=== PATIENT | male | born 1950 | race Caucasian/White ===

== ENCOUNTER 2019-03-19 18:13 | Emergency (ER) | payer OTHER ==
[2019-03-19 18:25] VITALS: BP 146/88; PULSE 83; RESP 18; TEMP 98.2
[2019-03-19] MEDS ORDERED: HYDROcodone/APAP 7.5-325MG 1 EACH TAB PO ONE (18:42)
--- NOTE | 2019-03-19 18:44 | ED ---
Extremity Problem HPI - General Chief complaint: Extremity Problem,Nontraumatic Stated complaint: Knee pain down to ankle Time Seen by Provider: 03/19/19 18:28 Source: patient Mode of arrival: ambulatory Limitations: no limitations - History of Present Illness Initial comments: Patient is a 68-year-old male presenting for left leg pain. The patient states that it originally started hurting on Thursday and was relieved by some Tylenol and Motrin. However, the pain is getting worse and is located in the back of his leg all the way down to his foot. He denies taking any blood thinners or any history of DVTs. He also denies any trauma but states that he has chronic knee pain. He denies any chest pain, shortness of breath, nausea/vomiting/diarr hea or abdominal pain. - Related Data Home Medications Medication Instructions Recorded Confirmed Hydrochlorothiazide [Hydrodiuril] 25 mg PO DAILY 03/19/19 03/19/19 Lisinopril 40 mg PO DAILY 03/19/19 03/19/19 Meloxicam [Mobic] 15 mg PO DAILY 03/19/19 03/19/19 amLODIPine [Norvasc] 10 mg PO DAILY 03/19/19 03/19/19 metFORMIN HCL [Glucophage] 500 mg PO BID 03/19/19 03/19/19 Allergies Allergy/AdvReac Type Severity Reaction Status Date / Time codeine Allergy Unknown Verified 03/19/19 19:54 Review of Systems ROS Statement: Those systems with pertinent positive or pertinent negative responses have been documented in the HPI. Constitutional: Negative for chills, fatigue and fever. HENT: Negative for congestion. Respiratory: Negative for chest tightness, shortness of breath and wheezing. Negative for cough Cardiovascular: Negative for chest pain and palpitations. Gastrointestinal: Negative for abdominal pain. Negative for abdominal distention, diarrhea, nausea and vomiting. Genitourinary: Negative for dysuria. Musculoskeletal: Negative for back pain, neck pain and neck stiffness. Positive for left leg pain below the knee Skin: Negative for color change. Neurological: Negative for dizziness, speech difficulty, weakness and light-head edness. Psychiatric/Behavioral: Negative for agitation and confusion. Negative for anxiety ROS Other: All systems not noted in ROS Statement are negative. Past Medical History Past Medical History: Diabetes Mellitus, Hypertension History of Any Multi-Drug Resistant Organisms: None Reported Past Surgical History: No Surgical Hx Reported Past Psychological History: No Psychological Hx Reported Smoking Status: Never smoker Past Alcohol Use History: Occasional Past Drug Use History: None Reported General Exam - General Exam Comments Initial Comments: Constitutional: Pt appears well-developed and well-nourished. No distress. Head: Normocephalic and atraumatic. Eyes: EOM are normal. Neck: Normal range of motion. Neck supple. Cardiovascular: Normal rate, regular rhythm, S1 normal, S2 normal and normal heart sounds. Exam reveals no gallop and no friction rub. No murmur heard. Pulmonary/Chest: Effort normal and breath sounds normal. No tachypnea and no bradypnea. No respiratory distress. No wheezes or rales noted. Abdominal: Soft. Bowel sounds are normal. Pt exhibits no shifting dullness, no distension, no pulsatile liver, no fluid wave, no abdominal bruit and no ascites. There is no rigidity, no rebound, no guarding, no tenderness at McBurney's point and negative Springer's sign. There is no tenderness. Musculoskeletal: Normal range of motion. Mild tenderness on the left popliteal fossa with a small palpable mass Neurological: Pt is alert and oriented to person, place, and time. No cranial nerve deficit. Skin: Skin is warm and dry. No rash noted. Pt is not diaphoretic. No erythema. No pallor. Psychiatric: Pt has a normal mood and affect. Pt behavior is normal. Thought content normal. Limitations: no limitations Course Vital Signs 03/19/19 18:22 Temperature 98.2 F Pulse Rate 83 Respiratory 18 Rate Blood Pressure 146/88 O2 Sat by Pulse 99 Oximetry Medical Decision Making - Medical Decision Making Laboratory studies showed that there was no significant leukocytosis, electronic derangements be causing the patient's cramping. Lower show any Doppler's are also performed and showed no evidence of DVT. X-rays were not performed of the left knee as there is no evidence of effusion or traumatic injury.It was explai veronica that while there does not appear to be an emergent process, the etiology of the symptoms are still unclear but possibly related to Pak cyst or arthritis and may need further workup as an outpatient if symptoms continue. Patient was offered [place] but stated that he had significant ALLERGY to codeine and did not want a wrist the interaction or ALLERGIC reaction to the [place].Explained all labs and diagnostic test results and that we will discharge the patient home and patient is to follow up with PCP in 1-2 days and return to the ED if symptoms worsen. Pt is agreeable to plan. - Lab Data Result diagrams: 03/19/19 19:46 03/19/19 19:46 Lab Results 03/19/19 03/19/19 03/19/19 Range/Units 19:46 19:46 19:46 WBC 8.8 (3.8-10.6) k/uL RBC 4.12 L (4.30-5.90) m/uL Hgb 14.1 (13.0-17.5) gm/dL Hct 40.1 (39.0-53.0) % MCV 97.5 (80.0-100.0) fL MCH 34.3 (25.0-35.0) pg MCHC 35.2 (31.0-37.0) g/dL RDW 13.1 (11.5-15.5) % Plt Count 249 (150-450) k/uL Neutrophils % 70 % Lymphocytes % 18 % Monocytes % 7 % Eosinophils % 2 % Basophils % 1 % Neutrophils # 6.1 (1.3-7.7) k/uL Lymphocytes # 1.6 (1.0-4.8) k/uL Monocytes # 0.6 (0-1.0) k/uL Eosinophils # 0.2 (0-0.7) k/uL Basophils # 0.1 (0-0.2) k/uL PT 9.6 (9.0-12.0) sec INR 0.9 (<1.2) APTT 23.3 (22.0-30.0) sec Sodium 137 (137-145) mmol/L Potassium 4.0 (3.5-5.1) mmol/L Chloride 101 (98-107) mmol/L Carbon Dioxide 25 (22-30) mmol/L Anion Gap 11 mmol/L BUN 17 (9-20) mg/dL Creatinine 0.88 (0.66-1.25) mg/dL Est GFR (CKD-EPI)AfAm >90 (>60 ml/min/1.73 sqM) Est GFR (CKD-EPI)NonAf 90 (>60 ml/min/1.73 sqM) Glucose 142 H (74-99) mg/dL Calcium 9.1 (8.4-10.2) mg/dL Magnesium 1.9 (1.6-2.3) mg/dL Disposition Clinical Impression: Left leg pain Disposition: HOME SELF-CARE Condition: Good Instructions (If sedation given, give patient instructions): Arthritis (ED) Is patient prescribed a controlled substance at d/c from ED?: No Referrals: Bridgett Zacarias DO [Primary Care Provider] - 1-2 days Time of Disposition: 20:24
--- NOTE | 2019-03-19 19:41 | US ---
EXAMINATION TYPE: US venous doppler duplex LE LT DATE OF EXAM: 03/19/2019 7:34 PM COMPARISON: NONE CLINICAL HISTORY: Pain. SIDE PERFORMED: Left TECHNIQUE: The lower extremity deep venous system is examined utilizing real time linear array sonog mellissa with graded compression, doppler sonography and color-flow sonography. VESSELS IMAGED: External Iliac Vein (EIV) Common Femoral Vein Deep Femoral Vein Greater Saphenous Vein * Femoral Vein Popliteal Vein Small Saphenous Vein * Proximal Calf Veins (* superficial vessels) Left Leg: Negative for DVT IMPRESSION: No evidence of deep venous thrombosis in the left leg.
[2019-03-19 19:59] LABS: Basophils # (A) 0.1 k/uL (0-0.2); Basophils % (A) 1 %; Eosinophils # (A) 0.2 k/uL (0-0.7); Eosinophils % (A) 2 %; HCT 40.1 % (39.0-53.0); HGB 14.1 gm/dL (13.0-17.5); Lymphocytes # (A) 1.6 k/uL (1.0-4.8); Lymphocytes % (A) 18 %; MCH 34.3 pg (25.0-35.0); MCHC 35.2 g/dL (31.0-37.0); MCV 97.5 fL (80.0-100.0); Mean Platelet Volume 7.1; Monocytes # (A) 0.6 k/uL (0-1.0); Monocytes % (A) 7 %; Neutrophils # (A) 6.1 k/uL (1.3-7.7); Neutrophils % (A) 70 %; Platelet Count 249 k/uL (150-450); RBC 4.12 m/uL (4.30-5.90); RDW 13.1 % (11.5-15.5); WBC 8.8 k/uL (3.8-10.6)
[2019-03-19 20:11] LABS: INR 0.9 (<1.2); Partial Thromboplastin Time 23.3 sec (22.0-30.0); Prothrombin Time 9.6 sec (9.0-12.0)
[2019-03-19 20:13] LABS: Anion Gap 11 mmol/L; Blood Urea Nitrogen 17 mg/dL (9-20); Calcium 9.1 mg/dL (8.4-10.2); Carbon Dioxide 25 mmol/L (22-30); Chloride 101 mmol/L (98-107); Glucose 142 mg/dL (74-99); Magnesium 1.9 mg/dL (1.6-2.3); Sodium 137 mmol/L (137-145)
== END 2019-03-19 20:40 | disposition home or self-care (01) ==
LOC: EC 18:13
DX: M79.605 Pain in left leg (principal); E11.9 Type 2 diabetes mellitus without complications; I10 Essential (primary) hypertension; Z79.84 Long term (current) use of oral hypoglycemic drugs; Z79.1 Long term (current) use of non-steroidal anti-inflammatories (NSAID); Z79.899 Other long term (current) drug therapy; Z88.5 Allergy status to narcotic agent; Z53.8 Procedure and treatment not carried out for other reasons
CPT/HCPCS: 36415; 80048; 83735; 85025; 85610; 85730; 99284

== ENCOUNTER 2019-05-31 15:02 | Inpatient (IN) | payer MEDICARE, OTHER ==
[2019-05-31] MEDS ORDERED: SODIUM CHLORIDE 0.9% 500 ML 500 ML IV STA (15:49)
[2019-05-31] MEDS ORDERED: HEPARIN SODIUM,PORCINE 5,000 UNIT/ML 1 ML VIAL IV ONE (15:50)
--- NOTE | 2019-05-31 15:54 | ED ---
General Adult HPI - General Source: patient, RN notes reviewed Mode of arrival: wheelchair Limitations: no limitations <Zach Domínguez - Last Filed: 05/31/19 17:17> <Augusto Durbin - Last Filed: 05/31/19 18:35> - General Chief complaint: Arrhythmia/Palpitations Stated complaint: Abn EKG sent by Dr Mancia Seen by Provider: 05/31/19 15:10 - History of Present Illness Initial comments: This 68-year-old male who presents emergency Department complaining of shortness of breath for a week. Patient states he has no heart history and he has no history of clotting and no history of atrial fibrillation. Patient denies any chest pain or palpitations. Patient denies any recent fever chills or cough. Patient denies any abdominal pain patient denies nausea or vomiting. Patient denies any calf pain or leg swelling. Patient denies any lightheadedness or dizziness. Patient denies any headache patient denies numbness or weakness. Patient denies any recent injury or trauma. (Zach Domínguez) - Related Data Home Medications Medication Instructions Recorded Confirmed Hydrochlorothiazide [Hydrodiuril] 25 mg PO DAILY 03/19/19 05/31/19 Lisinopril 40 mg PO DAILY 03/19/19 05/31/19 Meloxicam [Mobic] 15 mg PO DAILY 03/19/19 05/31/19 amLODIPine [Norvasc] 10 mg PO DAILY 03/19/19 05/31/19 metFORMIN HCL [Glucophage] 500 mg PO BID 03/19/19 05/31/19 Fluticasone Nasal [place] [Flonase 2 spr EA NOSTRIL DAILY 05/31/19 05/31/19 Nasal [place]] Allergies Allergy/AdvReac Type Severity Reaction Status Date / Time codeine Allergy Unknown Verified 05/31/19 15:23 Review of Systems ROS Other: All systems not noted in ROS Statement are negative. <Zach Domínguez - Last Filed: 05/31/19 17:17> ROS Other: All systems not noted in ROS Statement are negative. <Augusto Durbin - Last Filed: 05/31/19 18:35> ROS Statement: Those systems with pertinent positive or pertinent negative responses have been documented in the HPI. Past Medical History Past Medical History: Diabetes Mellitus, Hypertension History of Any Multi-Drug Resistant Organisms: None Reported Past Surgical History: Orthopedic Surgery Past Psychological History: No Psychological Hx Reported Smoking Status: Never smoker Past Alcohol Use History: Occasional Past Drug Use History: None Reported <Zach Domínguez - Last Filed: 05/31/19 17:17> General Exam Limitations: no limitations <Zach Domínguez - Last Filed: 05/31/19 17:17> - General Exam Comments Initial Comments: GENERAL: Patient is well-developed and well-nourished. Patient is nontoxic and well- hydrated and is in mild distress. ENT: Neck is soft and supple. No significant lymphadenopathy is noted. Oropharynx is clear. Moist mucous membranes. Neck has full range of motion without eliciting any pain. EYES: The sclera were anicteric and conjunctiva were pink and moist. Extraocular movements were intact and pupils were equal round and reactive to light. Eyelids were unremarkable. PULMONARY: Unlabored respirations. Good breath sounds bilaterally. No audible rales rhonchi or wheezing was noted. CARDIOVASCULAR: Patient has a and irregular heartbeat at 170 beats a minute ABDOMEN: Soft and nontender with normal bowel sounds. No palpable organomegaly was noted. There is no palpable pulsatile mass. SKIN: Skin is clear with no lesions or rashes and otherwise unremarkable. NEUROLOGIC: Patient is alert and oriented x3. Cranial nerves II through XII are grossly intact. Motor and sensory are also intact. Normal speech, volume and content. Symmetrical smile. MUSCULOSKELETAL: Normal extremities with adequate strength and full range of motion. No lower extremity swelling or edema. No calf tenderness. LYMPHATICS: No significant lymphadenopathy is noted PSYCHIATRIC: Normal psychiatric evaluation. (Zach Domínguez) Course Vital Signs 05/31/19 05/31/19 05/31/19 15:10 15:22 15:30 Temperature 97.9 F Pulse Rate 80 160 H Respiratory 18 18 Rate Blood Pressure 100/74 123/87 123/87 O2 Sat by Pulse 97 93 L 93 L Oximetry 05/31/19 05/31/19 05/31/19 15:40 15:50 16:00 Temperature Pulse Rate 158 H 161 H 172 H Respiratory 14 26 H 7 L Rate Blood Pressure 120/78 120/78 120/78 O2 Sat by Pulse 95 97 95 Oximetry 07/16/19 07/16/19 07/16/19 16:10 16:20 16:30 Temperature Pulse Rate 170 H 165 H 181 H Respiratory 32 H 23 17 Rate Blood Pressure 115/96 115/96 115/96 O2 Sat by Pulse 95 96 96 Oximetry 05/31/19 05/31/19 05/31/19 16:40 16:50 17:00 Temperature Pulse Rate 163 H 163 H 158 H Respiratory 34 H 33 H 29 H Rate Blood Pressure 93/74 93/74 93/74 O2 Sat by Pulse 94 L 94 L 92 L Oximetry 05/31/19 05/31/19 05/31/19 17:06 17:08 17:10 Temperature Pulse Rate 170 H 0 L 165 H Respiratory 18 35 H 18 Rate Blood Pressure 107/92 107/92 107/92 O2 Sat by Pulse 95 93 L 94 L Oximetry 05/31/19 05/31/19 05/31/19 17:12 17:14 17:16 Temperature Pulse Rate 147 H 151 H 137 H Respiratory 18 17 18 Rate Blood Pressure 107/92 107/92 113/88 O2 Sat by Pulse 94 L 95 93 L Oximetry 05/31/19 05/31/19 05/31/19 17:18 17:20 17:22 Temperature Pulse Rate 165 H 144 H 163 H Respiratory 19 9 L 20 Rate Blood Pressure 113/88 113/88 113/88 O2 Sat by Pulse 92 L 95 92 L Oximetry 05/31/19 05/31/19 05/31/19 17:24 17:26 17:28 Temperature Pulse Rate 158 H 146 H 147 H Respiratory 24 34 H 18 Rate Blood Pressure 113/88 113/88 113/88 O2 Sat by Pulse 94 L 92 L 92 L Oximetry 05/31/19 05/31/19 05/31/19 17:30 17:32 17:34 Temperature Pulse Rate 160 H 170 H 165 H Respiratory 26 H 21 23 Rate Blood Pressure 113/88 104/74 104/74 O2 Sat by Pulse 92 L 93 L 92 L Oximetry 05/31/19 05/31/19 05/31/19 17:36 17:38 17:40 Temperature Pulse Rate 152 H 168 H 170 H Respiratory 27 H 29 H 26 H Rate Blood Pressure 104/74 104/74 104/74 O2 Sat by Pulse 95 94 L 91 L Oximetry 05/31/19 05/31/19 05/31/19 17:42 17:44 17:46 Temperature Pulse Rate 152 H 170 H 170 H Respiratory 18 25 H 14 Rate Blood Pressure 104/74 104/74 110/84 O2 Sat by Pulse 92 L 92 L 92 L Oximetry 05/31/19 17:48 Temperature Pulse Rate 169 H Respiratory 34 H Rate Blood Pressure 110/84 O2 Sat by Pulse 91 L Oximetry Medical Decision Making - Lab Data Result diagrams: 05/31/19 16:04 05/31/19 16:04 <Zach Domínguez - Last Filed: 05/31/19 17:17> - Lab Data Result diagrams: 05/31/19 16:04 05/31/19 16:04 <Augusto Durbin - Last Filed: 05/31/19 18:35> - Medical Decision Making EKG shows atrial for ablation with rapid ventricular response at 171 bpm QRS is 90 QT interval is 298 QTC is 502. Patient's EKG shows no ST segment elevation. I started the patient on a Cardizem drip and started the patient on heparin. Patient's chest x-ray showed no acute abnormality. I spoke with Dr. Cordova he agreed to admit the patient I wrote admitting orders and consult cardiology. I continued heparin and Cardizem drip on the floor. Dr. Cordova came down to the emergency department and saw the patient. (Zach Domínguez) CXR reviewed, it shows evidence of cardiogenic edema with small bilateral pleural effusions. these findings are likely secondary to HR. patient remains stable, continue current management per admitting team. (Augusto Durbin) - Lab Data Lab Results 05/31/19 05/31/19 05/31/19 Range/Units 16:04 16:04 16:04 WBC 12.2 H (3.8-10.6) k/uL RBC 4.22 L (4.30-5.90) m/uL Hgb 13.6 (13.0-17.5) gm/dL Hct 41.8 (39.0-53.0) % MCV 99.2 D (80.0-100.0) fL MCH 32.3 (25.0-35.0) pg MCHC 32.6 (31.0-37.0) g/dL RDW 13.6 (11.5-15.5) % Plt Count 305 (150-450) k/uL Neutrophils % 74 % Lymphocytes % 15 % Monocytes % 7 % Eosinophils % 2 % Basophils % 1 % Neutrophils # 9.1 H (1.3-7.7) k/uL Lymphocytes # 1.8 (1.0-4.8) k/uL Monocytes # 0.9 (0-1.0) k/uL Eosinophils # 0.2 (0-0.7) k/uL Basophils # 0.1 (0-0.2) k/uL PT 11.0 (9.0-12.0) sec INR 1.0 (<1.2) APTT 22.8 (22.0-30.0) sec Sodium 139 (137-145) mmol/L Potassium 4.1 (3.5-5.1) mmol/L Chloride 105 (98-107) mmol/L Carbon Dioxide 22 (22-30) mmol/L Anion Gap 12 mmol/L BUN 24 H (9-20) mg/dL Creatinine 1.12 (0.66-1.25) mg/dL Est GFR (CKD-EPI)AfAm 79 (>60 ml/min/1.73 sqM) Est GFR (CKD-EPI)NonAf 68 (>60 ml/min/1.73 sqM) Glucose 107 H (74-99) mg/dL Calcium 9.1 (8.4-10.2) mg/dL Magnesium 2.1 (1.6-2.3) mg/dL Total Bilirubin 0.6 (0.2-1.3) mg/dL AST 53 (17-59) U/L ALT 91 H (21-72) U/L Alkaline Phosphatase 64 (38-126) U/L Troponin I (0.000-0.034) ng/mL Total Protein 6.4 (6.3-8.2) g/dL Albumin 3.6 (3.5-5.0) g/dL TSH 2.540 (0.465-4.680) mIU/L Free T4 1.61 (0.78-2.19) ng/dL 05/31/19 Range/Units 16:04 WBC (3.8-10.6) k/uL RBC (4.30-5.90) m/uL Hgb (13.0-17.5) gm/dL Hct (39.0-53.0) % MCV (80.0-100.0) fL MCH (25.0-35.0) pg MCHC (31.0-37.0) g/dL RDW (11.5-15.5) % Plt Count (150-450) k/uL Neutrophils % % Lymphocytes % % Monocytes % % Eosinophils % % Basophils % % Neutrophils # (1.3-7.7) k/uL Lymphocytes # (1.0-4.8) k/uL Monocytes # (0-1.0) k/uL Eosinophils # (0-0.7) k/uL Basophils # (0-0.2) k/uL PT (9.0-12.0) sec INR (<1.2) APTT (22.0-30.0) sec Sodium (137-145) mmol/L Potassium (3.5-5.1) mmol/L Chloride (98-107) mmol/L Carbon Dioxide (22-30) mmol/L Anion Gap mmol/L BUN (9-20) mg/dL Creatinine (0.66-1.25) mg/dL Est GFR (CKD-EPI)AfAm (>60 ml/min/1.73 sqM) Est GFR (CKD-EPI)NonAf (>60 ml/min/1.73 sqM) Glucose (74-99) mg/dL Calcium (8.4-10.2) mg/dL Magnesium (1.6-2.3) mg/dL Total Bilirubin (0.2-1.3) mg/dL AST (17-59) U/L ALT (21-72) U/L Alkaline Phosphatase (38-126) U/L Troponin I <0.012 (0.000-0.034) ng/mL Total Protein (6.3-8.2) g/dL Albumin (3.5-5.0) g/dL TSH (0.465-4.680) mIU/L Free T4 (0.78-2.19) ng/dL Critical Care Time Critical Care Time: Yes Total Critical Care Time: 35 <Zach Domínguez - Last Filed: 05/31/19 17:17> Disposition Time of Disposition: 17:18 <Zach Domínguez - Last Filed: 05/31/19 17:17> <Augusto Durbin - Last Filed: 05/31/19 18:35> Clinical Impression: New onset atrial fibrillation Disposition: ADMITTED IP TO THIS HOSP
[2019-05-31] MEDS ORDERED: SODIUM CHLORIDE 0.9% 500 ML 500 ML IV ONE (15:55)
[2019-05-31] MEDS ORDERED: DILTIAZEM 125 MG in SODIUM CHLORIDE 0.9% 100 ML IV SCH (16:30)
[2019-05-31 16:43] LABS: Basophils # (A) 0.1 k/uL (0-0.2); Basophils % (A) 1 %; Eosinophils # (A) 0.2 k/uL (0-0.7); Eosinophils % (A) 2 %; HCT 41.8 % (39.0-53.0); HGB 13.6 gm/dL (13.0-17.5); Lymphocytes # (A) 1.8 k/uL (1.0-4.8); Lymphocytes % (A) 15 %; MCH 32.3 pg (25.0-35.0); MCHC 32.6 g/dL (31.0-37.0); Mean Platelet Volume 8.1; Monocytes # (A) 0.9 k/uL (0-1.0); Monocytes % (A) 7 %; Neutrophils # (A) 9.1 k/uL (1.3-7.7); Neutrophils % (A) 74 %; Platelet Count 305 k/uL (150-450); RBC 4.22 m/uL (4.30-5.90); RDW 13.6 % (11.5-15.5); WBC 12.2 k/uL (3.8-10.6)
--- NOTE | 2019-05-31 16:44 | P.HPIM ---
History of Present Illness 68-year-old pleasant obese gentleman came in with comments of shortness of breath without any orthopnea proximal nocturnal dyspnea patient has exertional shortness of breath today any chest pain found to be in atrial fibrillation patient does feel palpitations. Patient has this on and off palpitation going on for some time is morbidly obese was never tested for sleep apnea. Patient is in A. fib at this time denied any lightheadedness or dizziness. All the workup is still pending. Patient was started on Cardizem drip and IV heparin drip and do not have any labs available at this time. Patient denied any fever chills, dysuria . Review of Systems REVIEW OF SYSTEMS: CONSTITUTIONAL: No fever, no malaise, no fatigue. HEENT: No recent visual problems or hearing problems. Denied any sore throat. CARDIOVASCULAR: No chest pain, PULMONARY: no cough, no hemoptysis. GASTROINTESTINAL: No diarrhea, no nausea, no vomiting, no abdominal pain. NEUROLOGICAL: No headaches, no weakness, no numbness. HEMATOLOGICAL: Denies any bleeding or petechiae. GENITOURINARY: Denies any burning micturition, frequency, or urgency. MUSCULOSKELETAL/RHEUMATOLOGICAL: Denies any joint pain, swelling, or any muscle pain. ENDOCRINE: Denies any polyuria or polydipsia. The rest of the 14-point review of systems is negative. Past Medical History Past Medical History: Diabetes Mellitus, Hypertension History of Any Multi-Drug Resistant Organisms: None Reported Past Surgical History: Orthopedic Surgery Past Psychological History: No Psychological Hx Reported Smoking Status: Never smoker Past Alcohol Use History: Occasional Past Drug Use History: None Reported Medications and Allergies Home Medications Medication Instructions Recorded Confirmed Type Hydrochlorothiazide [Hydrodiuril] 25 mg PO DAILY 03/19/19 05/31/19 History Lisinopril 40 mg PO DAILY 03/19/19 05/31/19 History Meloxicam [Mobic] 15 mg PO DAILY 03/19/19 05/31/19 History amLODIPine [Norvasc] 10 mg PO DAILY 03/19/19 05/31/19 History metFORMIN HCL [Glucophage] 500 mg PO BID 03/19/19 05/31/19 History Fluticasone Nasal [place] [Flonase 2 spr EA NOSTRIL DAILY 05/31/19 05/31/19 History Nasal [place]] Allergies Allergy/AdvReac Type Severity Reaction Status Date / Time codeine Allergy Unknown Verified 05/31/19 15:23 Physical Exam Vitals: Vital Signs Temp Pulse Resp BP Pulse Ox 05/31/19 16:40 93/74 95 05/31/19 15:10 97.9 F 80 18 100/74 97 Intake and Output 05/31/19 05/31/19 05/31/19 06:59 14:59 22:59 Other: Weight 122.47 kg PHYSICAL EXAMINATION: GENERAL: The patient is alert and oriented x3, not in any acute distress. Obese HEENT: Pupils are round and equally reacting to light. EOMI. No scleral icterus. No conjunctival pallor. Normocephalic, atraumatic. No pharyngeal erythema. No thyromegaly. CARDIOVASCULAR: S1 and S2 present. No murmurs, rubs, or gallops. Irregularly irregular rhythm tachycardic PULMONARY: Chest is clear to auscultation, no wheezing or crackles. ABDOMEN: Soft, nontender, nondistended, normoactive bowel sounds. No palpable organomegaly. MUSCULOSKELETAL: No joint swelling or deformity. EXTREMITIES: No cyanosis, clubbing, or pedal edema. NEUROLOGICAL: Gross neurological examination did not reveal any focal deficits. SKIN: No rashes. Assessment and Plan Plan: -New-onset atrial fibrillation with rapid ventricular rate: We will obtain not compressive metabolic profile CBC no signs or symptoms of infection will obtain a chest x-ray TSH will be obtained patient was started on Cardizem echocardiogram will be obtained patient was started on heparin -Hypertension hold off and evidences because of her blood pressure his blood pressure being low and patient being on Cardizem -Type 2 diabetes mellitus sliding scale insulin for now hold off metformin -Obesity
[2019-05-31] MEDS: HEPARIN SOD,PORK IN 0.45% NACL 25,000 UNIT in 0.45% NACL 1 250ML.BAG IV SCH (16:48)
[2019-05-31 16:50] LABS: Albumin 3.6 g/dL (3.5-5.0); Calcium 9.1 mg/dL (8.4-10.2); Magnesium 2.1 mg/dL (1.6-2.3); Potassium 4.1 mmol/L (3.5-5.1); Total Bilirubin 0.6 mg/dL (0.2-1.3); Total Protein 6.4 g/dL (6.3-8.2)
[2019-05-31 16:53] LABS: Partial Thromboplastin Time 22.8 sec (22.0-30.0)
[2019-05-31 17:04] LABS: MCV 99.2 fL (80.0-100.0)
[2019-05-31 17:05] LABS: T4, Free (Free Thyroxine) 1.61 ng/dL (0.78-2.19)
[2019-05-31] MEDS ORDERED: NITROGLYCERIN SL TABS 0.4 MG TAB SUBLINGUAL PRN (17:18)
--- NOTE | 2019-05-31 18:18 | XR ---
EXAMINATION: XR chest 2V DATE AND TIME: 05/31/2019 6:08 PM CLINICAL INDICATION: PHH; dysrhythmia TECHNIQUE: Departmental protocol COMPARISON: None FINDINGS: The overlying soft tissues are prominent. There is mild silhouetting of the pulmonary vasculature bilaterally by a fine reticular pattern of in creased attenuation, suggesting interstitial phase pulmonary edema if corroborated clinically. The pleural spaces are positive for small pleural effusions posteriorly. The cardiac silhouette is mildly enlarged. The skeletal structures and soft tissues are negative for acute findings. IMPRESSION: Mild interstitial phase cardiogenic pulmonary edema with small bilateral pleural effusions.
[2019-05-31] MEDS: DILTIAZEM 125 MG in SODIUM CHLORIDE 0.9% 100 ML IV SCH (21:05)
[2019-05-31 21:20] LABS: Glucose,Whole Blood 115 mg/dL (75-99)
[2019-05-31] MEDS: METOPROLOL SUCCINATE (ER) 50 MG TAB.ER.24H PO SCH (22:12)
[2019-06-01 03:06] LABS: Cholesterol 144 mg/dL (<200); HDL Cholesterol 34 mg/dL (40-60); LDL Cholesterol,Calculated 87 mg/dL (0-99); Triglycerides 113 mg/dL (<150)
[2019-06-01 07:17] LABS: Glucose,Whole Blood 125 mg/dL (75-99)
[2019-06-01] MEDS ORDERED: ASPIRIN 325 MG TAB PO SCH (09:00)
[2019-06-01] MEDS: METOPROLOL SUCCINATE (ER) 50 MG TAB.ER.24H PO SCH (09:19)
[2019-06-01] MEDS: FUROSEMIDE 10 MG/ML 4 ML VIAL IV SCH ×2 (11:26→20:24)
[2019-06-01] MEDS: DILTIAZEM 125 MG in SODIUM CHLORIDE 0.9% 100 ML IV SCH (11:31)
[2019-06-01 11:55] LABS: Glucose,Whole Blood 121 mg/dL (75-99)
[2019-06-01] MEDS: HEPARIN SODIUM,PORCINE 5,000 UNIT/ML 1 ML VIAL IV PRN (12:44)
--- NOTE | 2019-06-01 13:38 | P.PN ---
Subjective Patient was admitted for atrial fibrillation with rapid ventricular rate. Patient continues to have increased rate patient is presently on Cardizem echocardiogram is being obtain cardiology will let patient patient is on IV heparin. Patient does have pulmonary edema on the chest x-ray, patient will be started on Lasix. Awaiting echocardiogram. Patient is complaining of shortness of breath Constitutional: Denied any fatigue denied any fever. Cardio vascular: denied any chest pain, palpitations Gastrointestinal denied any nausea vomiting Pulmonary: As mentioned in the interval history Neurologic denied any new focal deficits All inpatient medications were reviewed and appropriate changes in these medications as dictated in the interval history and assessment and plan. Objective - Vital Signs Vital signs: Vital Signs Temp 97.5 F L 06/01/19 12:00 Pulse 120 H 06/01/19 12:00 Resp 18 06/01/19 12:00 BP 112/71 06/01/19 12:00 Pulse Ox 95 06/01/19 12:00 Intake & Output 05/31/19 06/01/19 06/01/19 18:59 06:59 18:59 Intake Total 187 821.174 Balance 187 821.174 Weight 122.47 kg 122.3 kg Intake: Intake, IV Titration 187 221.174 Amount Diltiazem 125 mg In 60 125 Sodium Chloride 0.9% 100 ml @ 10 MG/HR 10 mls/hr IV .[id number] [facility] Rx#: [id number] Heparin Sod,Pork in 0.45% 127 96.174 NaCl 25,000 unit In 0.45 % NaCl 1 250ml.bag @ 8. 165 UNITS/KG/HR 10 mls/hr IV .Q24H [facility] Rx#: [id number] Oral 600 Other: Voiding Method Toilet # Voids 3 1 - Exam PHYSICAL EXAMINATION: GENERAL: The patient is alert and oriented x3, not in any acute distress. Obese HEENT: Pupils are round and equally reacting to light. EOMI. No scleral icterus. No conjunctival pallor. Normocephalic, atraumatic. No pharyngeal erythema. No thyromegaly. CARDIOVASCULAR: S1 and S2 present. No murmurs, rubs, or gallops. Irregularly irregular rhythm tachycardic PULMONARY: Chest is clear to auscultation, no wheezing or crackles. ABDOMEN: Soft, nontender, nondistended, normoactive bowel sounds. No palpable organomegaly. MUSCULOSKELETAL: No joint swelling or deformity. EXTREMITIES: No cyanosis, clubbing, or pedal edema. NEUROLOGICAL: Gross neurological examination did not reveal any focal deficits. SKIN: No rashes. - Labs CBC & Chem 7: 05/31/19 16:04 05/31/19 16:04 Labs: Abnormal Lab Results - Last 24 Hours (Table) 05/31/19 05/31/19 05/31/19 Range/Units 16:04 16:04 21:18 WBC 12.2 H (3.8-10.6) k/uL RBC 4.22 L (4.30-5.90) m/uL Neutrophils # 9.1 H (1.3-7.7) k/uL APTT (22.0-30.0) sec BUN 24 H (9-20) mg/dL Glucose 107 H (74-99) mg/dL POC Glucose (mg/dL) 115 H (75-99) mg/dL ALT 91 H (21-72) U/L HDL Cholesterol (40-60) mg/dL 06/01/19 06/01/19 06/01/19 Range/Units 02:33 06:52 11:31 WBC (3.8-10.6) k/uL RBC (4.30-5.90) m/uL Neutrophils # (1.3-7.7) k/uL APTT 30.5 H (22.0-30.0) sec BUN (9-20) mg/dL Glucose (74-99) mg/dL POC Glucose (mg/dL) 125 H (75-99) mg/dL ALT (21-72) U/L HDL Cholesterol 34 L (40-60) mg/dL 06/01/19 Range/Units 11:47 WBC (3.8-10.6) k/uL RBC (4.30-5.90) m/uL Neutrophils # (1.3-7.7) k/uL APTT (22.0-30.0) sec BUN (9-20) mg/dL Glucose (74-99) mg/dL POC Glucose (mg/dL) 121 H (75-99) mg/dL ALT (21-72) U/L HDL Cholesterol (40-60) mg/dL Assessment and Plan Plan: -New-onset atrial fibrillation with rapid ventricular rate: TSH is within normal limits patient will be continued on Cardizem patient does have pulmonary edema echocardiogram is pending -Shortness of breath secondary to pulmonary edema: Echocardiogram is pending unsure whether patient has systolic dysfunction and diastolic dysfunction pulmonary edema can be secondary to atrial fibrillation. Cardiology will evaluate the patient continue with IV heparin. -Leukocytosis reactive without any other signs or symptoms of infection at this time -Hypertension hold off all her anti-happens medications because of her blood pressure his blood pressure being low and patient being on Cardizem -Type 2 diabetes mellitus sliding scale insulin for now hold off metformin -Obesity
--- NOTE | 2019-06-01 13:50 | P.CRDCN ---
History of Present Illness History of present illness: This is Dr. Chapa dictating a consult on this patient The patient was interviewed and examined by me IMPRESSION / ASSESSMENT: Atrial fibrillation with a very rapid ventricular response History of heavy alcohol use in the past stopped completely about a month back Symptoms of acute exacerbation congestive heart failure in the setting of atrial fibrillation with RVR with prominent neck veins, crackles at both bases, bilateral lower extremity edema LV function not known at this time 2-D echo and Doppler study awaited PLAN: Increase metoprolol to 50 g twice daily line continue Cardizem IV and when heart rates are better controlled then we will back off on IV Cardizem 2-D echo and Doppler study IV Lasix 40 mg every 12 Continue IV heparin, AISLINN VASC score of at least 3, age, hypertension, diabetes at this time HPI Patient of Dr. Noriega Patient presented to the emergency room with shortness of breath. For the last 2 weeks or so he's been short of breath with minimal exertion. He says he can lay comfortably in bed and is not short of breath at rest but I find him short of breath at rest upon my examination Denies chest discomfort denies palpitations no loss of consciousness or dizziness Past history of smoking. History of heavy alcohol use and he quit cold turkey about a month back Has not been tested for sleep apnea History of hypertension, history of type 2 diabetes Since his blood pressures in the normal range at home Bilateral lower extremity edema, patient on amlodipine 10 mg daily ROS: No fever chills or rigors, no cough, phlegm or expectoration, no nausea, vomiting or diarrhea, no hematuria, dysuria, no musculoskeletal complaints, no strokes or seizures, no skin lesions. EXAMINATION: Temperature 97.5F, pulse rate 120, blood pressure 112/71 mmHg, 95% on 2 L nasal cannula Short of breath at rest but says he is not short of breath Thick neck difficult to assess JVD but external jugulars are prominent Breath sounds are reduced bilaterally with some crackles at the bases Heart sounds are tachycardic and regular there is no murmurs audible Central obesity noted Bilateral lower extremity edema REVIEW OF LABS, ECG & MEDICAL DATA Elevated white count of 12.2 thousand, hemoglobin 13.6 Sodium 139 potassium 4.1 BUN 24 creatinine 1.12 magnesium 2.1 2 negative cardiac enzymes, NT proBNP 2000 Normal TSH at 2.5 Triglycerides 113, total cholesterol 144, LDL 87 and HDL 34 Chest x-ray shows interstitial edema/fine reticular pattern, small bilateral pleural effusions Twelve-lead ECG shows atrial fibrillation with RVR 171 beats a minute narrow QRS Past history of diabetes type 2 and hypertension and obesity Past Medical History Past Medical History: Diabetes Mellitus, Hypertension, Liver Disease Additional Past Medical History / Comment(s): pt. being worked up as an outpatient for elevated LFT's History of Any Multi-Drug Resistant Organisms: None Reported Past Surgical History: Orthopedic Surgery Additional Past Surgical History / Comment(s): carpal tunnel release Past Anesthesia/Blood Transfusion Reactions: No Reported Reaction Past Psychological History: No Psychological Hx Reported Smoking Status: Never smoker Past Alcohol Use History: Occasional Additional Past Alcohol Use History / Comment(s): pt. states he has not drank in over a month because as of recent his liver enzymes have been elevated Past Drug Use History: None Reported - Past Family History Father Family Medical History: Cancer, Coronary Artery Disease (CAD) Additional Family Medical History / Comment(s): colon cancer Medications and Allergies Home Medications Medication Instructions Recorded Confirmed Type Hydrochlorothiazide [Hydrodiuril] 25 mg PO DAILY 03/19/19 05/31/19 History Lisinopril 40 mg PO DAILY 03/19/19 05/31/19 History Meloxicam [Mobic] 15 mg PO DAILY 03/19/19 05/31/19 History amLODIPine [Norvasc] 10 mg PO DAILY 03/19/19 05/31/19 History metFORMIN HCL [Glucophage] 500 mg PO BID 03/19/19 05/31/19 History Fluticasone Nasal Reading [Flonase 2 spr EA NOSTRIL DAILY 05/31/19 05/31/19 History Nasal Reading] Allergies Allergy/AdvReac Type Severity Reaction Status Date / Time codeine Allergy Unknown Verified 05/31/19 15:23 Physical Exam Vitals: Vital Signs Temp Pulse Pulse Resp BP BP Pulse Ox 06/01/19 12:00 97.5 F L 120 H 18 112/71 95 06/01/19 07:40 97.6 F 118 H 22 110/71 92 L 06/01/19 04:00 98.2 F 123 H 21 122/94 2 L 06/01/19 00:00 98.2 F 131 H 19 113/82 92 L 05/31/19 21:25 91 L 05/31/19 20:00 155 H 20 05/31/19 19:40 98.6 F 155 H 20 136/76 96 05/31/19 18:34 147 H 38 H 93/82 96 05/31/19 18:32 158 H 11 L 93/82 94 L 05/31/19 18:30 156 H 28 H 101/83 94 L 05/31/19 18:26 170 H 18 101/83 94 L 05/31/19 18:22 170 H 32 H 101/83 93 L 05/31/19 18:18 165 H 32 H 101/83 95 05/31/19 18:16 170 H 21 124/55 93 L 05/31/19 18:14 170 H 48 H 95 05/31/19 18:12 170 H 24 95 05/31/19 18:10 179 H 20 82 L 05/31/19 18:02 110/84 05/31/19 18:00 160 H 15 110/84 93 L 05/31/19 17:58 163 H 24 110/84 94 L 05/31/19 17:56 144 H 16 110/84 95 05/31/19 17:54 170 H 26 H 110/84 93 L 05/31/19 17:52 168 H 25 H 110/84 95 05/31/19 17:50 0 L 20 110/84 94 L 05/31/19 17:48 169 H 34 H 110/84 91 L 05/31/19 17:46 170 H 14 110/84 92 L 05/31/19 17:44 170 H 25 H 104/74 92 L 05/31/19 17:42 152 H 18 104/74 92 L 05/31/19 17:40 170 H 26 H 104/74 91 L 05/31/19 17:38 168 H 29 H 104/74 94 L 05/31/19 17:36 152 H 27 H 104/74 95 05/31/19 17:34 165 H 23 104/74 92 L 05/31/19 17:32 170 H 21 104/74 93 L 05/31/19 17:30 160 H 26 H 113/88 92 L 05/31/19 17:28 147 H 18 113/88 92 L 05/31/19 17:26 146 H 34 H 113/88 92 L 05/31/19 17:24 158 H 24 113/88 94 L 05/31/19 17:22 163 H 20 113/88 92 L 05/31/19 17:20 144 H 9 L 113/88 95 05/31/19 17:18 165 H 19 113/88 92 L 05/31/19 17:16 137 H 18 113/88 93 L 05/31/19 17:14 151 H 17 107/92 95 05/31/19 17:12 147 H 18 107/92 94 L 05/31/19 17:10 165 H 18 107/92 94 L 05/31/19 17:08 0 L 35 H 107/92 93 L 05/31/19 17:06 170 H 18 107/92 95 05/31/19 17:00 158 H 29 H 93/74 92 L 05/31/19 16:50 163 H 33 H 93/74 94 L 05/31/19 16:40 163 H 34 H 93/74 94 L 05/31/19 16:30 181 H 17 115/96 96 05/31/19 16:20 165 H 23 115/96 96 05/31/19 16:10 170 H 32 H 115/96 95 05/31/19 16:00 172 H 7 L 120/78 95 05/31/19 15:50 161 H 26 H 120/78 97 05/31/19 15:40 158 H 14 120/78 95 05/31/19 15:30 160 H 18 123/87 93 L 05/31/19 15:22 123/87 93 L 05/31/19 15:10 97.9 F 80 18 100/74 97 Intake and Output 05/31/19 06/01/19 06/01/19 22:59 06:59 14:59 Intake Total 187 821.174 Balance 187 821.174 Intake: Intake, IV Titration 187 221.174 Amount Diltiazem 125 mg In 60 125 Sodium Chloride 0.9% 100 ml @ 10 MG/HR 10 mls/hr IV .[id number] [facility] Rx#: [id number] Heparin Sod,Pork in 0.45% 127 96.174 NaCl 25,000 unit In 0.45 % NaCl 1 250ml.bag @ 8. 165 UNITS/KG/HR 10 mls/hr IV .Q24H [facility] Rx#: [id number] Oral 600 Other: Voiding Method Toilet Toilet # Voids 1 3 1 Weight 122.47 kg 122.3 kg Results 05/31/19 16:04 05/31/19 16:04 Cardiac Enzymes 05/31/19 05/31/19 05/31/19 Range/Units 16:04 16:04 22:18 AST 53 (17-59) U/L Troponin I <0.012 <0.012 (0.000-0.034) ng/mL 06/01/19 Range/Units 02:33 AST (17-59) U/L Troponin I <0.012 (0.000-0.034) ng/mL Coagulation 05/31/19 06/01/19 06/01/19 Range/Units 16:04 02:33 11:31 PT 11.0 (9.0-12.0) sec APTT 22.8 26.3 30.5 H (22.0-30.0) sec Lipids 06/01/19 Range/Units 02:33 Triglycerides 113 (<150) mg/dL Cholesterol 144 (<200) mg/dL HDL Cholesterol 34 L (40-60) mg/dL CBC 05/31/19 Range/Units 16:04 WBC 12.2 H (3.8-10.6) k/uL RBC 4.22 L (4.30-5.90) m/uL Hgb 13.6 (13.0-17.5) gm/dL Hct 41.8 (39.0-53.0) % Plt Count 305 (150-450) k/uL Comprehensive Metabolic Panel 05/31/19 Range/Units 16:04 Sodium 139 (137-145) mmol/L Potassium 4.1 (3.5-5.1) mmol/L Chloride 105 (98-107) mmol/L Carbon Dioxide 22 (22-30) mmol/L BUN 24 H (9-20) mg/dL Creatinine 1.12 (0.66-1.25) mg/dL Glucose 107 H (74-99) mg/dL Calcium 9.1 (8.4-10.2) mg/dL AST 53 (17-59) U/L ALT 91 H (21-72) U/L Alkaline Phosphatase 64 (38-126) U/L Total Protein 6.4 (6.3-8.2) g/dL Albumin 3.6 (3.5-5.0) g/dL Current Medications Generic Name Dose Route Start Last Admin Trade Name Grady PRN Reason Stop Dose Admin Aspirin 81 mg 06/02/19 09:00 Aspirin PO DAILY [facility] Furosemide 40 mg 06/01/19 11:00 06/01/19 11:26 Lasix IV 40 mg Q12HR [facility] Administration Heparin Sodium (Porcine) 0 unit 06/01/19 12:33 06/01/19 12:44 Heparin IV 4,000 unit PER PROTOCOL PRN Administration Low PTT Protocol Heparin Sodium/Sodium Chloride 250 mls @ 10 mls/hr 05/31/19 16:00 06/01/19 12:32 25,000 unit/ Sodium Chloride IV 14.16 units/kg/hr .Q24H [facility] 17.342 mls/hr Titration Protocol 8.165 UNITS/KG/HR Diltiazem HCl 125 mg/ Sodium 125 mls @ 10 mls/hr 05/31/19 21:30 06/01/19 11:31 Chloride IV 10 mg/hr .[id number] [facility] 10 mls/hr Administration 10 MG/HR Metoprolol Succinate 50 mg 05/31/19 21:15 06/01/19 09:19 Toprol Xl PO 50 mg DAILY [facility] Administration Nitroglycerin 0.4 mg 05/31/19 17:18 Nitrostat SUBLINGUAL Q5M PRN Chest Pain Intake and Output 05/31/19 06/01/19 06/01/19 22:59 06:59 14:59 Intake Total 187 821.174 Balance 187 821.174 Intake: Intake, IV Titration 187 221.174 Amount Diltiazem 125 mg In 60 125 Sodium Chloride 0.9% 100 ml @ 10 MG/HR 10 mls/hr IV .[id number] [facility] Rx#: [id number] Heparin Sod,Pork in 0.45% 127 96.174 NaCl 25,000 unit In 0.45 % NaCl 1 250ml.bag @ 8. 165 UNITS/KG/HR 10 mls/hr IV .Q24H [facility] Rx#: [id number] Oral 600 Other: Voiding Method Toilet Toilet # Voids 1 3 1 Weight 122.47 kg 122.3 kg 05/31/19 16:04 05/31/19 16:04
[2019-06-01] MEDS: HEPARIN SOD,PORK IN 0.45% NACL 25,000 UNIT in 0.45% NACL 1 250ML.BAG IV SCH (15:16)
[2019-06-01 16:37] LABS: Glucose,Whole Blood 109 mg/dL (75-99)
[2019-06-01 20:54] LABS: Glucose,Whole Blood 118 mg/dL (75-99)
[2019-06-02] MEDS: DILTIAZEM 125 MG in SODIUM CHLORIDE 0.9% 100 ML IV SCH ×3 (03:47→21:32)
[2019-06-02] MEDS: HEPARIN SOD,PORK IN 0.45% NACL 25,000 UNIT in 0.45% NACL 1 250ML.BAG IV SCH ×2 (03:48→20:39)
[2019-06-02] MEDS: FUROSEMIDE 10 MG/ML 4 ML VIAL IV SCH ×2 (09:28→21:00)
[2019-06-02] MEDS: ASPIRIN 81 MG PO SCH (09:29)
[2019-06-02] MEDS: METOPROLOL SUCCINATE (ER) 50 MG TAB.ER.24H PO SCH (09:29)
--- NOTE | 2019-06-02 10:34 | ECHOF ---
Referral Reason:a.fib MEASUREMENTS -------- HEIGHT: 182.9 cm WEIGHT: 122.0 kg BP: 110/71 RVIDd: 4.0 cm (< 3.3) IVSd: 1.0 cm (0.6 - 1.1) LVIDd: 6.4 cm (3.9 - 5.3) LVPWd: 1.3 cm (0.6 - 1.1) IVSs: 1.5 cm LVIDs: 5.1 cm LVPWs: 1.4 cm LAESV Index (A-L): 26.51 ml/m Ao Diam: 2.9 cm (2.0 - 3.7) AV Cusp: 2.0 cm (1.5 - 2.6) LA Diam: 4.9 cm (2.7 - 3.8) MV EXCURSION: 19.371 mm (> 18.000) MV EF SLOPE: 363 mm/s (70 - 150) EPSS: 1.5 cm AR PHT: 282 ms RAP: 20.00 mmHg RVSP: 48.01 mmHg FINDINGS -------- Atrial fibrillation. This was a technically difficult study with suboptimal views. The left ventricle is moderately dilated. Left ventricular wall thickness is normal. There is sev ere global hypokinesis of LV . Overall left ventricular systolic function is severely impaired with , an EF between 20 - 25 %. Left ventricular fillimg pressure cannot be estimated due to Atrial fibr illation. The right ventricle is moderate to severely enlarged. Normal LA size by volume 22+/-6 ml/m2. The right atrial size is normal. xx ml of Lumason was utilized for enhancement of images. Interatrial and interventricular septum intact. Trace to mild aortic regurgitation. There is no evidence of aortic stenosis. Mild mitral annular calcification present. Mild mitral regurgitation is present. Mild tricuspid regurgitation present. There is moderate pulmonary hypertension. The right ventric ular systolic pressure, as measured by Doppler, is 48.01mmHg. There is no pulmonic regurgitation present. The aortic root size is normal. The inferior vena cava is dilated with no significant inspiratory collapse which is consistent estima jem right atrial pressure of >20 mmHg. Echo free space indicative of a pericardial fat pad. There is no pericardial effusion. CONCLUSIONS -------- 1. Atrial fibrillation. 2. This was a technically difficult study with suboptimal views. 3. The left ventricle is moderately dilated. 4. Left ventricular wall thickness is normal. 5. There is severe global hypokinesis of LV . 6. Overall left ventricular systolic function is severely impaired with, an EF between 20 - 25 %. 7. Left ventricular fillimg pressure cannot be estimated due to Atrial fibrillation. 8. The right ventricle is moderate to severely enlarged. 9. Normal LA size by volume 22+/-6 ml/m2. 10. The right atrial size is normal. 11. xx ml of Lumason was utilized for enhancement of images. 12. Interatrial and interventricular septum intact. 13. Trace to mild aortic regurgitation. 14. There is no evidence of aortic stenosis. 15. Mild mitral annular calcification present. 16. Mild mitral regurgitation is present. 17. Mild tricuspid regurgitation present. 18. There is moderate pulmonary hypertension. 19. The right ventricular systolic pressure, as measured by Doppler, is 48.01mmHg. 20. There is no pulmonic regurgitation present. 21. The aortic root size is normal. 22. The inferior vena cava is dilated with no significant inspiratory collapse which is consistent es timated right atrial pressure of >20 mmHg. 23. Echo free space indicative of a pericardial fat pad. 24. There is no pericardial effusion. [employer] OPERATOR: Tasha Fang RDCS
[2019-06-02 11:57] LABS: Glucose,Whole Blood 116 mg/dL (75-99)
--- NOTE | 2019-06-02 12:27 | CT ---
CT CHEST FOR PULMONARY EMBOLISM. EXAMINATION TYPE: CT angio chest DATE OF EXAM: 06/02/2019 INDICATION: shortness of breath CT DLP: 597.4 mGycm, Automated exposure control for dose reduction was used. CONTRAST: Patient injected with 100 mL of Isovue 370. COMPARISON: Chest x-ray 05/31/2019 TECHNIQUE: CT of the chest is performed on a spiral scan at 2 mm thick sections. Study is performed with intravenous contrast timed for evaluation for pulmonary embolism. This will limit additional po rtions of the evaluation. 3-D MIP images reconstructed by the technologist are reviewed on the compu ter in the coronal and sagittal planes. FINDINGS: No persistent filling defects are evident to suggest an acute pulmonary embolism. No mediastinal or hilar adenopathy enlarged by CT criteria is evident. The ascending aorta diameter at the level of the main pulmonary artery is 4.6 cm. The main pulmonary artery diameter at the bifur cation is 3.7 cm. There is a small right pleural effusion. Minimal left pleural effusion is present. There is compressi ve atelectasis adjacent to the bilateral pleural effusions. Limited CT section through the upper abdomen are unremarkable. IMPRESSIONS: 1. No acute pulmonary emboli. 2. Small right and minimal left pleural effusions. Adjacent atelectasis is present.
--- NOTE | 2019-06-02 13:11 | P.PN ---
Subjective Patient is still short of breath but doing a lot better than yesterday. He continues to diurese well. He is able to lie flat in bed now No chest discomfort mild short of breath at rest lungs are clear on examination. 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 Discrimination of diltiazem at that time and then addition of losartan and spironolactone in addition to Toprol-XL Complete abstinence from alcohol consumption Oral anticoagulants starting tomorrow, NOAC Objective - Vital Signs Vital signs: Vital Signs Temp 98.1 F 06/02/19 12:00 Pulse 133 H 06/02/19 12:00 Resp 18 06/02/19 12:00 BP 109/82 06/02/19 12:00 Pulse Ox 94 L 06/02/19 12:00 Intake & Output 06/01/19 06/02/19 06/02/19 18:59 06:59 18:59 Intake Total 848.000 357.353 240 Output Total 900 500 Balance 848.000 -542.647 -260 Weight 121.8 kg Intake: Intake, IV Titration 248.000 217.353 Amount Diltiazem 125 mg In 125 Sodium Chloride 0.9% 100 ml @ 10 MG/HR 10 mls/hr IV .[id number] [facility] Rx#: [id number] Heparin Sod,Pork in 0.45% 123.000 217.353 NaCl 25,000 unit In 0.45 % NaCl 1 250ml.bag @ 8. 165 UNITS/KG/HR 10 mls/hr IV .Q24H [facility] Rx#: [id number] Oral 600 140 240 Output: Urine 900 500 Other: Voiding Method Toilet # Voids 2 1 - Labs CBC & Chem 7: 05/31/19 16:04 05/31/19 16:04 Labs: Abnormal Lab Results - Last 24 Hours (Table) 06/01/19 06/01/19 06/01/19 Range/Units 16:32 18:55 20:52 APTT 57.0 H (22.0-30.0) sec D-Dimer (<0.60) mg/L FEU POC Glucose (mg/dL) 109 H 118 H (75-99) mg/dL 06/02/19 06/02/19 06/02/19 Range/Units 06:48 06:48 11:54 APTT 41.7 H (22.0-30.0) sec D-Dimer 1.24 H (<0.60) mg/L FEU POC Glucose (mg/dL) 116 H (75-99) mg/dL
[2019-06-02] MEDS ORDERED: METOPROLOL SUCCINATE (ER) 50 MG TAB.ER.24H PO STA (13:34)
--- NOTE | 2019-06-02 14:30 | P.PN ---
Subjective Patient was admitted for atrial fibrillation with rapid ventricular rate. Patient continues to have increased rate patient is presently on Cardizem echocardiogram is being obtain cardiology will let patient patient is on IV heparin. Patient does have pulmonary edema on the chest x-ray, patient will be started on Lasix. Awaiting echocardiogram. 06/02/2019 Patient has EF of 20-25% to patient's metoprolol dose is being increased. In the process of discontinued and Cardizem because of his poor ejection fraction. Patient probably will undergo COURTNEY cardioversion tomorrow and patient is presently on IV heparin. Patient is complaining of shortness of breath Constitutional: Denied any fatigue denied any fever. Cardio vascular: denied any chest pain, palpitations Gastrointestinal denied any nausea vomiting Pulmonary: As mentioned in the interval history Neurologic denied any new focal deficits All inpatient medications were reviewed and appropriate changes in these medications as dictated in the interval history and assessment and plan. Objective - Vital Signs Vital signs: Vital Signs Temp 98.1 F 06/02/19 12:00 Pulse 133 H 06/02/19 12:00 Resp 18 06/02/19 12:00 BP 109/82 06/02/19 12:00 Pulse Ox 94 L 06/02/19 12:00 Intake & Output 06/01/19 06/02/19 06/02/19 18:59 06:59 18:59 Intake Total 848.000 357.353 420 Output Total 900 500 Balance 848.000 -542.647 -80 Weight 121.8 kg Intake: Intake, IV Titration 248.000 217.353 Amount Diltiazem 125 mg In 125 Sodium Chloride 0.9% 100 ml @ 10 MG/HR 10 mls/hr IV .[id number] [facility] Rx#: [id number] Heparin Sod,Pork in 0.45% 123.000 217.353 NaCl 25,000 unit In 0.45 % NaCl 1 250ml.bag @ 8. 165 UNITS/KG/HR 10 mls/hr IV .Q24H [facility] Rx#: [id number] Oral 600 140 420 Output: Urine 900 500 Other: Voiding Method Toilet # Voids 2 1 - Exam PHYSICAL EXAMINATION: GENERAL: The patient is alert and oriented x3, not in any acute distress. Obese HEENT: Pupils are round and equally reacting to light. EOMI. No scleral icterus. No conjunctival pallor. Normocephalic, atraumatic. No pharyngeal erythema. No thyromegaly. CARDIOVASCULAR: S1 and S2 present. No murmurs, rubs, or gallops. Irregularly irregular rhythm tachycardic PULMONARY: Chest is clear to auscultation, no wheezing or crackles. ABDOMEN: Soft, nontender, nondistended, normoactive bowel sounds. No palpable organomegaly. MUSCULOSKELETAL: No joint swelling or deformity. EXTREMITIES: No cyanosis, clubbing, or pedal edema. NEUROLOGICAL: Gross neurological examination did not reveal any focal deficits. SKIN: No rashes. - Labs CBC & Chem 7: 05/31/19 16:04 05/31/19 16:04 Labs: Abnormal Lab Results - Last 24 Hours (Table) 06/01/19 06/01/19 06/01/19 Range/Units 16:32 18:55 20:52 APTT 57.0 H (22.0-30.0) sec D-Dimer (<0.60) mg/L FEU POC Glucose (mg/dL) 109 H 118 H (75-99) mg/dL 06/02/19 06/02/19 06/02/19 Range/Units 06:48 06:48 11:54 APTT 41.7 H (22.0-30.0) sec D-Dimer 1.24 H (<0.60) mg/L FEU POC Glucose (mg/dL) 116 H (75-99) mg/dL Assessment and Plan Plan: -New-onset atrial fibrillation with rapid ventricular rate: TSH is within normal limits patient will be Cardizem will be weaned off today patient's metoprolol dose was increased echocardiac showed ejection fraction of 20-25% -Congestive heart failure chronic systolic dysfunction with acute exacerbation heart failure can be related to atrial fibrillation itself. Continue with IV Lasix. Possibility of COURTNEY cardioversion tomorrow -Leukocytosis reactive without any other signs or symptoms of infection at this time -Hypertension hold off all her anti-hypertensive medications because of her blood pressure his blood pressure being low and patient being on Cardizem -Type 2 diabetes mellitus sliding scale insulin for now hold off metformin -Obesity
[2019-06-02] MEDS ORDERED: SODIUM CHLORIDE 0.9% 1,000 ML IV SCH (14:45)
[2019-06-02] MEDS ORDERED: METOPROLOL SUCCINATE (ER) 50 MG TAB.ER.24H PO ONE (15:00)
[2019-06-02 17:16] LABS: Glucose,Whole Blood 129 mg/dL (75-99)
[2019-06-02] MEDS ORDERED: LACTATED RINGERS 1,000 ML IV SCH (18:15)
[2019-06-02 20:53] LABS: Glucose,Whole Blood 130 mg/dL (75-99)
[2019-06-02 21:23] LABS: Basophils # (A) 0.1 k/uL (0-0.2); Basophils % (A) 0 %; Eosinophils # (A) 0.2 k/uL (0-0.7); Eosinophils % (A) 1 %; HCT 40.2 % (39.0-53.0); HGB 13.1 gm/dL (13.0-17.5); Lymphocytes # (A) 1.7 k/uL (1.0-4.8); Lymphocytes % (A) 15 %; MCH 32.5 pg (25.0-35.0); MCHC 32.5 g/dL (31.0-37.0); Mean Platelet Volume 7.9; Monocytes # (A) 0.8 k/uL (0-1.0); Monocytes % (A) 7 %; Neutrophils # (A) 8.3 k/uL (1.3-7.7); Neutrophils % (A) 74 %; Platelet Count 254 k/uL (150-450); RBC 4.02 m/uL (4.30-5.90); RDW 13.6 % (11.5-15.5); WBC 11.1 k/uL (3.8-10.6)
[2019-06-02 21:28] LABS: Albumin 3.5 g/dL (3.5-5.0); Calcium 8.4 mg/dL (8.4-10.2); Magnesium 2.1 mg/dL (1.6-2.3); Potassium 3.7 mmol/L (3.5-5.1); Total Bilirubin 0.4 mg/dL (0.2-1.3); Total Protein 6.3 g/dL (6.3-8.2)
[2019-06-03] MEDS: HEPARIN SODIUM,PORCINE 5,000 UNIT/ML 1 ML VIAL IV PRN (03:28)
[2019-06-03 06:43] LABS: HCT 42.3 % (39.0-53.0); HGB 13.8 gm/dL (13.0-17.5); MCH 32.9 pg (25.0-35.0); MCHC 32.5 g/dL (31.0-37.0); Mean Platelet Volume 8.2; Platelet Count 265 k/uL (150-450); RBC 4.19 m/uL (4.30-5.90); RDW 13.5 % (11.5-15.5); WBC 11.9 k/uL (3.8-10.6)
[2019-06-03 07:12] LABS: Albumin 3.6 g/dL (3.5-5.0); Calcium 8.6 mg/dL (8.4-10.2); Potassium 4.2 mmol/L (3.5-5.1); Total Bilirubin 0.6 mg/dL (0.2-1.3); Total Protein 6.4 g/dL (6.3-8.2)
[2019-06-03] MEDS ORDERED: PROPOFOL 10 MG/ML 20 ML VIAL IV ONE (10:27)
[2019-06-03] MEDS ORDERED: BENZOCAINE SPRAY 1 CAN MUCOUS MEM ONE (10:35)
[2019-06-03] MEDS ORDERED: IV FLUID CONTINUATION 600 ML IV ONE (10:38)
--- NOTE | 2019-06-03 11:08 | P.PN ---
Subjective Patient was evaluated this morning for heart failure. His heart rates symptoms have improved. He is able to lie flatter now with less orthopnea no PND. 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 Atrial fibrillation with RVR on heparin Central obesity Likely obstructive sleep apnea Suggest Switched from IV heparin to ELIQUIS Start anaid inhibitors Start spironolactone Continue long-acting metoprolol Proceed with electrical cardioversion if there is no intracardiac mass or thrombus, today Detailed discussion with the patient and his regarding the management of cardio myopathy, abstinence from alcohol and management of atrial fibrillation Low salt diet Weight reduction Assessment of sleep apnea Objective - Vital Signs Vital signs: Vital Signs Temp 98.1 F 06/03/19 08:00 Pulse 75 06/03/19 08:00 Resp 18 06/03/19 08:00 BP 121/90 06/03/19 08:00 Pulse Ox 95 06/03/19 08:00 Intake & Output 06/02/19 06/03/19 06/03/19 18:59 06:59 18:59 Intake Total 870.00 133.259 240 Output Total 500 1050 Balance 370.00 -916.741 240 Weight 122.4 kg Intake: Intake, IV Titration 450.00 133.259 Amount Heparin Sod,Pork in 0.45% 250.00 133.259 NaCl 25,000 unit In 0.45 % NaCl 1 250ml.bag @ 8. 165 UNITS/KG/HR 10 mls/hr IV .Q24H [facility] Rx#: [id number] Sodium Chloride 0.9% 1, 200 000 ml @ 20 mls/hr IV . Q24H [facility] Rx#:[id number] Oral 420 240 Output: Urine 500 1050 Other: Voiding Method Toilet # Voids 2 1 - Labs CBC & Chem 7: 06/03/19 05:53 06/03/19 05:53 Labs: Abnormal Lab Results - Last 24 Hours (Table) 06/02/19 06/02/19 06/02/19 Range/Units 11:54 13:50 16:51 WBC (3.8-10.6) k/uL RBC (4.30-5.90) m/uL MCV (80.0-100.0) fL Neutrophils # (1.3-7.7) k/uL APTT 43.7 H (22.0-30.0) sec BUN (9-20) mg/dL Glucose (74-99) mg/dL POC Glucose (mg/dL) 116 H 129 H (75-99) mg/dL 06/02/19 06/02/19 06/02/19 Range/Units 20:52 20:59 20:59 WBC 11.1 H (3.8-10.6) k/uL RBC 4.02 L (4.30-5.90) m/uL MCV (80.0-100.0) fL Neutrophils # 8.3 H (1.3-7.7) k/uL APTT (22.0-30.0) sec BUN 27 H (9-20) mg/dL Glucose 126 H (74-99) mg/dL POC Glucose (mg/dL) 130 H (75-99) mg/dL 06/02/19 06/03/19 06/03/19 Range/Units 23:56 05:53 05:53 WBC 11.9 H (3.8-10.6) k/uL RBC 4.19 L (4.30-5.90) m/uL MCV 101.0 H (80.0-100.0) fL Neutrophils # (1.3-7.7) k/uL APTT 37.6 H (22.0-30.0) sec BUN 23 H (9-20) mg/dL Glucose 129 H (74-99) mg/dL POC Glucose (mg/dL) (75-99) mg/dL 06/03/19 Range/Units 07:29 WBC (3.8-10.6) k/uL RBC (4.30-5.90) m/uL MCV (80.0-100.0) fL Neutrophils # (1.3-7.7) k/uL APTT 74.0 H (22.0-30.0) sec BUN (9-20) mg/dL Glucose (74-99) mg/dL POC Glucose (mg/dL) (75-99) mg/dL
--- NOTE | 2019-06-03 11:13 | P.PCN ---
Preoperative Diagnosis: Procedure Electrical cardioversion Diagnosis Symptomatically atrial fibrillation with underlying global cardiomyopathy Congestive heart failure, acute on chronic class III, improving Left radical ejection fraction 20-25% Central obesity History of alcohol use, heavy, but has stopped for month Procedure details 360 J biphasic shock 1 successfully converted to sinus rhythm Plan Continue metoprolol succinate 100 mg by mouth daily continue heart failure medications continue ELIQUIS Congestive heart failure management Complete abstinence from alcohol Sleep apnea assessment Low salt diet weight reduction Reassessment of rhythm and heart failure and LV function as an outpatient
[2019-06-03] MEDS: ASPIRIN 81 MG PO SCH (11:33)
[2019-06-03] MEDS: METOPROLOL SUCCINATE (ER) 100 MG TAB.ER.24H PO SCH (11:33)
[2019-06-03] MEDS: APIXABAN 5 MG TAB PO SCH ×2 (11:33→20:33)
--- NOTE | 2019-06-03 11:42 | P.TEE ---
Indications for Procedure(s): Rule out left atrial clot Date of Procedure: 06/03/19 Preoperative Diagnosis: Atrial fibrillation with rapid ventricular response, cardiomyopathy Postoperative Diagnosis: No clot in the left atrial appendage, severely impaired LV function, moderate mitral regurgitation Description of Procedure(s): INDICATION: This test is being done to rule out left atrial appendage clot, before cardioversion CONSENT:. Verbal consent was obtained from the patient PROCEDURE:. Patient was brought to the lab in a fasting state. He was prepped and draped in the usual fashion. Department of anesthesia provided anesthesia during the procedure. A lubricated Omni probe was introduced into the oropharynx and was advanced into the esophagus without difficulty. Patient tolerated the procedure well. Multiple views were obtained. Color pulse and continuous-wave Doppler was done. Saline contrast bubble injection was performed FINDINGS: There is biatrial enlargement. There is moderate mitral regurgitation, which is central. The left atrial appendage is small and free of any clot. There is smoke noted in the appendage, and also in the left atrium. The left ventricle function is severely impaired. The interatrial septum is intact without any spontaneous shunt. Saline bubble injection did not reveal any crossing of the bubbles across the interatrial septum. The thoracic aorta appeared to be free of any significant plaque IMPRESSION: #1. No clot in the left atrial appendage. #2. No PFO #3. Biatrial enlargement. #4. Moderate mitral regurgitation. #5. Severely impaired LV function PLAN:. May proceed with cardioversion
[2019-06-03 12:22] LABS: Glucose,Whole Blood 121 mg/dL (75-99)
[2019-06-03] MEDS: LISINOPRIL 10 MG TAB PO SCH (14:45)
[2019-06-03] MEDS: FUROSEMIDE 40 MG TAB PO SCH (14:45)
[2019-06-03 17:17] LABS: Glucose,Whole Blood 111 mg/dL (75-99)
--- NOTE | 2019-06-03 20:37 | P.PN ---
Subjective Progress Note Date: 06/03/19 Principal diagnosis: This is a pleasant 68 year old male that was admitted for new onset atrial fibrillation with RVR and is being closely monitored. Patient underwent COURTNEY with cardioversion this morning and upon visiting him s/p the procedure he stated that he felt much better and his shortness of breath has resolved. Patient is sitting up at the bedside with family visiting. Patient denies any shortness of breath, chest pain, or palpitations at this time. Patient denies any nausea or vomiting. Patient states that he is hungry as he was NPO for the procedure. Objective - Vital Signs Vital signs: Vital Signs Temp 97.9 F 06/03/19 16:00 Pulse 87 06/03/19 16:00 Resp 18 06/03/19 16:00 BP 117/81 06/03/19 16:00 Pulse Ox 93 L 06/03/19 17:24 Intake & Output 06/03/19 06/03/19 06/04/19 06:59 18:59 06:59 Intake Total 133.259 820 Output Total 1050 Balance -916.741 820 Weight 122.4 kg Intake: IV 100 Intake, IV Titration 133.259 Amount Heparin Sod,Pork in 0.45% 133.259 NaCl 25,000 unit In 0.45 % NaCl 1 250ml.bag @ 8. 165 UNITS/KG/HR 10 mls/hr IV .Q24H [facility] Rx#: [id number] Oral 720 Output: Urine 1050 Other: Voiding Method Toilet # Voids 1 1 - Exam On exam, the patient is alert and oriented and appears in no acute distress. Vital signs are stable and patient had just returned from COURTNEY with cardioversion. BP is 117/81, pulse is 87, respirations are 18 non-labored, temp is 98.1F, and oxygen saturation is 95% on 3 L via NC Heent: conjunctivae normal, EOMs intact Neck: supple, no lymph nodes noted, no JVD noted Cardiovascular: S1, S2 heard, no murmurs Respiratory: breath sounds clear upon auscultation with no wheezing noted. Abdomen: soft, non-tender, no masses noted Legs: no swelling or edema noted Nervous system: no new focal deficits, gait is steady Skin: dry, no rashes or lesions noted. - Labs CBC & Chem 7: 06/03/19 05:53 06/03/19 05:53 Labs: Abnormal Lab Results - Last 24 Hours (Table) 06/02/19 06/02/19 06/02/19 Range/Units 20:52 20:59 20:59 WBC 11.1 H (3.8-10.6) k/uL RBC 4.02 L (4.30-5.90) m/uL MCV (80.0-100.0) fL Neutrophils # 8.3 H (1.3-7.7) k/uL APTT (22.0-30.0) sec BUN 27 H (9-20) mg/dL Glucose 126 H (74-99) mg/dL POC Glucose (mg/dL) 130 H (75-99) mg/dL 06/02/19 06/03/19 06/03/19 Range/Units 23:56 05:53 05:53 WBC 11.9 H (3.8-10.6) k/uL RBC 4.19 L (4.30-5.90) m/uL MCV 101.0 H (80.0-100.0) fL Neutrophils # (1.3-7.7) k/uL APTT 37.6 H (22.0-30.0) sec BUN 23 H (9-20) mg/dL Glucose 129 H (74-99) mg/dL POC Glucose (mg/dL) (75-99) mg/dL 06/03/19 06/03/19 06/03/19 Range/Units 07:29 11:47 16:57 WBC (3.8-10.6) k/uL RBC (4.30-5.90) m/uL MCV (80.0-100.0) fL Neutrophils # (1.3-7.7) k/uL APTT 74.0 H (22.0-30.0) sec BUN (9-20) mg/dL Glucose (74-99) mg/dL POC Glucose (mg/dL) 121 H 111 H (75-99) mg/dL Assessment and Plan Assessment: New onset atrial fibrillation with rapid ventricular response: Patient underwent COURTNEY with cardioversion. Patient cardioverted after 360 joules. recent EF is 20- 25% Congestive heart failure: chronic systolic dysfunction with acute exacerbation of heart failure which could be related to the afib itself. On Aldactone 50mg daily. Lasix has been switched to by mouth instead of IV. Leukocytosis reactive without any other signs or symptoms of infection at this time. Will continue to monitor with daily labs Hypertension: Patient is on Toprol XL 100mg, Lisinopril 10mg, and Aldactone 50mg daily Diabetes mellitus type 2: Monitoring glucose levels closely and covering with sliding scale insulin. Obesity Anticoagulation: was on a heparin drip but has been started on eliquis 5mg BID and ASA 81mg daily Recommendations and discussion: Recommend continuing current medications and symptomatic management. Will continue to monitor closely. Guarded prognosis. Will monitor vitals and labs closely. Further recommendations to follow. Possibly discharge in 24-48 hours. Cardiology is following.
[2019-06-03 20:52] LABS: Glucose,Whole Blood 99 mg/dL (75-99)
[2019-06-04 06:24] LABS: Glucose,Whole Blood 136 mg/dL (75-99)
[2019-06-04] MEDS ORDERED: SPIRONOLACTONE 25 MG TAB PO SCH (09:00)
[2019-06-04 09:21] VITALS: TEMP 98.4
[2019-06-04] MEDS: ASPIRIN 81 MG PO SCH (09:24)
[2019-06-04] MEDS: FUROSEMIDE 40 MG TAB PO SCH (09:25)
[2019-06-04] MEDS: LISINOPRIL 10 MG TAB PO SCH (09:25)
[2019-06-04] MEDS: APIXABAN 5 MG TAB PO SCH (09:25)
[2019-06-04] MEDS: METOPROLOL SUCCINATE (ER) 100 MG TAB.ER.24H PO SCH (09:25)
[2019-06-04] MEDS ORDERED: FUROSEMIDE 10 MG/ML 4 ML VIAL IV STA (11:58)
[2019-06-04 14:08] VITALS: RESP 16
--- NOTE | 2019-06-04 15:32 | P.DS ---
Providers Date of admission: 05/31/19 17:18 Attending physician: Cade Cordova Consults: 05/31/19 17:18 Consult Physician Urgent Consulting Provider: [facility] Consult Reason/Comments: New-onset A. fib Do you want consulting provider notified?: Yes Primary care physician: Bridgett Zacarias [facility] Course: 68-year-old male was admitted for atrial fibrillation with rapid ventricular rate patient underwent cardioversion after which patient is sinus rhythm. Patient on metoprolol and Eliquis. Patient is found to have ejection fraction of 20-25% patient earlier today desaturated to 88% patient was switched to oral Lasix. Patient will be switched back to IV Lasix and later in the day. Saturations are better patient will be discharged on 40 mg twice a day off oral Lasix patient need to remain on IV Lasix and will reassess tomorrow. PHYSICAL EXAMINATION: GENERAL: The patient is alert and oriented x3, not in any acute distress. Obese HEENT: Pupils are round and equally reacting to light. EOMI. No scleral icterus. No conjunctival pallor. Normocephalic, atraumatic. No pharyngeal erythema. No thyromegaly. CARDIOVASCULAR: S1 and S2 present. No murmurs, rubs, or gallops. PULMONARY: Chest is clear to auscultation, no wheezing or crackles. ABDOMEN: Soft, nontender, nondistended, normoactive bowel sounds. No palpable organomegaly. MUSCULOSKELETAL: No joint swelling or deformity. EXTREMITIES: No cyanosis, clubbing, has pitting pedal edema NEUROLOGICAL: Gross neurological examination did not reveal any focal deficits. SKIN: No rashes. Assessment and Plan Assessment: New onset atrial fibrillation with rapid ventricular response: Patient underwent COURTNEY with cardioversion. Patient cardioverted after 360 joules. recent EF is 20- 25% Congestive heart failure: chronic systolic dysfunction with acute exacerbation patient is presently on oral Lasix which will be converted to IV Lasix if he desaturates again. Leukocytosis reactive without any other signs or symptoms of infection at this time. Will continue to monitor with daily labs Hypertension: Patient is on Toprol XL 100mg, Lisinopril 10mg, and Aldactone 50mg daily Diabetes mellitus type 2: Obesity Anticoagulation: Eliquis 5 mg twice a day Plan - Discharge Summary Discharge Rx Participant: No New Discharge Prescriptions: New Spironolactone [Aldactone] 50 mg PO DAILY #30 tab Apixaban [Eliquis] 5 mg PO BID #60 tab Furosemide [Lasix] 40 mg PO BID@0900,1600 #60 tab Metoprolol Succinate (ER) [Toprol XL] 100 mg PO DAILY #30 tab.er.24h Lisinopril [Zestril] 10 mg PO DAILY #30 tab Continue metFORMIN HCL [Glucophage] 500 mg PO BID Meloxicam [Mobic] 15 mg PO DAILY Lisinopril 40 mg PO DAILY Fluticasone Nasal [place] [Flonase Nasal [place]] 2 spr EA NOSTRIL DAILY Discontinued amLODIPine [Norvasc] 10 mg PO DAILY Hydrochlorothiazide [Hydrodiuril] 25 mg PO DAILY Discharge Medication List Lisinopril 40 mg PO DAILY 03/19/19 [History] Meloxicam [Mobic] 15 mg PO DAILY 03/19/19 [History] metFORMIN HCL [Glucophage] 500 mg PO BID 03/19/19 [History] Fluticasone Nasal [place] [Flonase Nasal [place]] 2 spr EA NOSTRIL DAILY 05/31/19 [History] Apixaban [Eliquis] 5 mg PO BID #60 tab 06/04/19 [Rx] Furosemide [Lasix] 40 mg PO BID@0900,1600 #60 tab 06/04/19 [Rx] Lisinopril [Zestril] 10 mg PO DAILY #30 tab 06/04/19 [Rx] Metoprolol Succinate (ER) [Toprol XL] 100 mg PO DAILY #30 tab.er.24h 06/04/19 [Rx] Spironolactone [Aldactone] 50 mg PO DAILY #30 tab 06/04/19 [Rx] Follow up Appointment(s)/Referral(s): Gil Chapa MD [STAFF PHYSICIAN] - 2 Weeks (Follow-up with Dr. Chapa/Pamella Anderson/Roxane Arellano) Bridgett Zacarias DO [Primary Care Provider] - 3 Days Activity/Diet/Wound Care/Special Instructions: pts 30 day copay for Eliquis is $43.50, free 30 day coupon filled in [facility]
[2019-06-04 15:36] VITALS: BP 123/84; PULSE 96
--- NOTE | 2019-06-04 16:42 | P.PN ---
Subjective Progress Note Date: 06/04/19 This is a 68-year-old gentleman who was admitted with atrial fibrillation with rapid ventricular response and evidence of congestive heart failure. Patient had a COURTNEY examination followed by cardioversion. Patient is maintaining sinus rhythm. He is feeling much better.His vital signs are stable. His heart rate is about 80-90.His blood pressure is 123/84.lungs are clear and heart is irregular. Patient is being discharged home. Follow-up with Dr. Chapa as an outpatient Objective - Vital Signs Vital signs: Vital Signs Temp 98.4 F 06/04/19 08:30 Pulse 96 06/04/19 15:20 Resp 16 06/04/19 15:20 BP 123/84 06/04/19 15:20 Pulse Ox 95 06/04/19 15:20 Intake & Output 06/03/19 06/04/19 06/04/19 18:59 06:59 18:59 Intake Total 820 240 Output Total 975 Balance 820 -735 Weight 122.5 kg Intake: IV 100 Oral 720 240 Output: Urine 975 Other: Voiding Method Toilet # Voids 1 2 2 - Exam GENERAL EXAM: Patient is alert and oriented and doesn't appear to be in any acute distress HEENT: Normocephalic. Normal reaction of pupils, equal size, normal range of extraocular motion. No erythema or exudates in the throat. NECK: No masses, no nuchal rigidity. CHEST: No chest wall deformity. LUNGS: scattered rhonchi and wheezing HEART: [S1 and S2 normal with no audible mumurs or gallops. Regular rhythm, femorals equal on both sides..] ABDOMEN: No hepatosplenomegaly, normal bowel sounds, no guarding or rigidity. SKIN: No rashes CENTRAL NERVOUS SYSTEM: No focal deficits. EXTREMITIES: [No cyanosis, clubbing or edema. - Labs CBC & Chem 7: 06/03/19 05:53 06/03/19 05:53 Labs: Abnormal Lab Results - Last 24 Hours (Table) 06/03/19 06/04/19 Range/Units 16:57 06:22 POC Glucose (mg/dL) 111 H 136 H (75-99) mg/dL Assessment and Plan (1) Cardiomyopathy Current Visit: Yes Status: Acute Code(s): I42.9 - CARDIOMYOPATHY, UNSPECIFIED SNOMED Code(s): 09039685 (2) New onset atrial fibrillation Current Visit: Yes Status: Acute Code(s): I48.91 - UNSPECIFIED ATRIAL FIBRILLATION SNOMED Code(s): 00319356 (3) Congestive heart failure Current Visit: Yes Status: Acute Code(s): I50.9 - HEART FAILURE, UNSPECIFIED SNOMED Code(s): 18751410 Plan: patient is critically stable Patient could be discharged home. Follow-up with the Dr. Chapa
== END 2019-06-04 16:50 | disposition home or self-care (01) | DRG 308 ==
LOC: EC 15:02 → 3SCARD 17:18
PROVIDERS: ADMIT Internal Medicine; ATTEND Internal Medicine
PROC: 5A2204Z Restoration of Cardiac Rhythm, Single (ICD-10-PCS; principal; 2019-06-03 10:30)
PROC: B24BZZ4 Ultrasonography of Heart with Aorta, Transesophageal (ICD-10-PCS; 2019-06-03 10:30)
DX: I48.1 Persistent atrial fibrillation (principal); I50.23 Acute on chronic systolic (congestive) heart failure; I42.9 Cardiomyopathy, unspecified; I11.0 Hypertensive heart disease with heart failure; E66.01 Morbid (severe) obesity due to excess calories; D72.829 Elevated white blood cell count, unspecified; E11.9 Type 2 diabetes mellitus without complications; G47.33 Obstructive sleep apnea (adult) (pediatric); R74.8 Abnormal levels of other serum enzymes; R77.9 Abnormality of plasma protein, unspecified; Z79.1 Long term (current) use of non-steroidal anti-inflammatories (NSAID); Z79.84 Long term (current) use of oral hypoglycemic drugs; Z79.899 Other long term (current) drug therapy; Z88.5 Allergy status to narcotic agent; Z68.36 Body mass index [BMI] 36.0-36.9, adult; Z80.0 Family history of malignant neoplasm of digestive organs; Z82.49 Family history of ischemic heart disease and other diseases of the circulatory system
CPT/HCPCS: 36415; 71046; 71275; 80053; 80061; 83735; 83880; 84439; 84443; 84484; 85025; 85027; 85379; 85610; 85730; 92960; 93005; 93306; 93312; 93320; 93325; 94760; 96365; 96366; 96376; 99291

== ENCOUNTER → 2019-06-09 | Outpatient (CLI) | payer MEDICARE, OTHER ==
--- NOTE | 2019-06-09 08:45 | US ---
EXAMINATION TYPE: US abdomen limited DATE OF EXAM: 06/09/2019 COMPARISON: CT dated 06/02/2019 CLINICAL HISTORY: R74.8 Abnormal levels of other serum enzymes. Elevated liver enzymes EXAM MEASUREMENTS: Liver Length: 20.3 cm Gallbladder Wall: 0.4 cm CBD: 0.5 cm Right Kidney: 10.7 x 5.9 x 5.6 cm Difficult and limited study due to patient body habitus Pancreas: obscured by overlying midline bowel gas Liver: enlarged. There is coarsened echogenicity of the hepatic parenchyma with diminished visualiza tion of the portal triads most commonly relating to hepatic steatosis and limiting evaluation for und erlying hepatic masses. Gallbladder: mildly thickened wall Evidence for sonographic Springer's sign: no CBD: visualized portions wnl, limited by overlying bowel gas Right Kidney: 2.1 x 1.5 x 1.6cm exophytic cyst mid pole IMPRESSION: 1. Mildly coarsened hepatic echotexture. This is nonspecific but given the reflux of contrast into th e hepatic veins on the prior CT of 06/02/2019 this could reflect congestive hepatopathy from congestiv e heart failure or hepatic steatosis although other etiologies are possible. 2. Simple appearing 2.1 cm renal cyst. 3. Circumferentially thickened gallbladder wall that could relate to the adjacent hepatocellular dise ase or chronic cholecystitis/biliary dysfunction. HIDA scan with CCK could be considered or if there is further clinical concern.
== END | disposition home or self-care (01) ==
LOC: RADUSWWP 07:23
PROVIDERS: ATTEND Family Medicine
DX: N28.1 Cyst of kidney, acquired (principal); K82.8 Other specified diseases of gallbladder
CPT/HCPCS: 76705

== ENCOUNTER 2019-06-15 11:09 | Inpatient (IN) | payer MEDICARE, OTHER ==
[2019-06-15] MEDS ORDERED: SODIUM CHLORIDE 0.9% 1,000 ML IV ONE (11:34)
[2019-06-15] MEDS ORDERED: DILTIAZEM 5 MG/ML 5 ML VIAL IVP STA (11:39)
[2019-06-15] MEDS ORDERED: SODIUM CHLORIDE 0.9% 500 ML 500 ML IV STA (11:40)
--- NOTE | 2019-06-15 11:50 | ED ---
General Adult HPI - General Chief complaint: Chest Pain Stated complaint: Chest pain,SOB, weak Time Seen by Provider: 06/15/19 11:27 Source: patient, family, RN notes reviewed, old records reviewed Mode of arrival: wheelchair Limitations: no limitations - History of Present Illness Initial comments: Chief complaint and history of present illness; this is a 68-year-old male here with his . The patient drove in. Patient reports approximately 4 AM this morning started having chest pain pressure and diaphoresis. It lasted for several hours. He called EMS by the time they got there he states he felt much better. They checked him out and he decided to stay home. Approximately 4 hours later he called his saying he felt is about to faint. He is very diaphoretic. Patient was then driven by his to the emergency room came through the front door. Initial vital signs showed a rapid heart rate of 187. Low blood pressure of 62/49. [place] back trauma 2. First set of vital signs in the trauma room was pulse 118 blood pressure 97/74 with a pulse ox of 96%. Patient reports he was at is worst when he first arrived to check in. States he is pain-free at this time. Patient is to receive one half liter of fluid at this time and Cardizem 5 mg slow IV push. Patient states that the discomfort was in the shoulder and down his arm and both 5 AM and 9 AM. His found him in the living room sitting and vomiting at 5 AM - Related Data Home Medications Medication Instructions Recorded Confirmed Amiodarone [Cordarone] 200 mg PO TID 06/15/19 06/15/19 Previous Rx's Medication Instructions Recorded Apixaban [Eliquis] 5 mg PO BID #60 tab 06/04/19 Furosemide [Lasix] 40 mg PO BID@0900,1600 #60 tab 06/04/19 Lisinopril [Zestril] 10 mg PO DAILY #30 tab 06/04/19 Metoprolol Succinate (ER) [Toprol 100 mg PO DAILY #30 tab.er.24h 06/04/19 XL] Spironolactone [Aldactone] 50 mg PO DAILY #30 tab 06/04/19 Allergies Allergy/AdvReac Type Severity Reaction Status Date / Time codeine Allergy Unknown Verified 06/15/19 11:52 Review of Systems ROS Statement: Those systems with pertinent positive or pertinent negative responses have been documented in the HPI. Review of systems. Currently without chest pain or chest pressure denies dizziness or visual acuity denies any chest pain or radiation of pain. Denies nausea vomiting. Denies any neuro deficits. States he feels much better at this time. All systems reviewed. Past medical problems significant for having diagnosed with atrial fibrillation with RVR approximately 10 days to 2 weeks ago. He's been placed on several medications including eliquis, lisinopril, metoprolol, Lasix and spironolactone. For the past medical problems include [id number] diabetes, carpal tunnel surgery and released. History of hypertension, unknown liver disease currently being worked up. Family instructed respiratory. Patient reports she never smoked and rarely uses alcohol. Denies drugs. ALLERGIES to codeine causes nausea. ROS Other: All systems not noted in ROS Statement are negative. Past Medical History Past Medical History: Atrial Fibrillation, Diabetes Mellitus, Hypertension, Liver Disease Additional Past Medical History / Comment(s): pt. being worked up as an outpatient for elevated LFT's History of Any Multi-Drug Resistant Organisms: None Reported Past Surgical History: Orthopedic Surgery Additional Past Surgical History / Comment(s): carpal tunnel release Past Anesthesia/Blood Transfusion Reactions: No Reported Reaction Past Psychological History: No Psychological Hx Reported Smoking Status: Never smoker Past Alcohol Use History: Occasional Past Drug Use History: None Reported - Past Family History Father Family Medical History: Cancer, Coronary Artery Disease (CAD) Additional Family Medical History / Comment(s): colon cancer General Exam - General Exam Comments Initial Comments: General: The patient is awake and alert, currently in no distress. But upon arrival to emergency room he states he is having chest pain very diaphoretic. First set of vital signs show temperature 97.8 pulse 27 respiratory rate 16 pulse ox 98% on room air blood pressure 62/49. The patient was rushed back to trauma 2. Initial set of vital signs is available to me at the time showed heart rate 118 blood pressure 97/74 with a pulse ox of 96% on room air. The patient had an IV started to be receiving half liter fluid at this time and IV Cardizem slow push. Eye: Pupils are equal, round and reactive to light, extra-ocular movements are intact; there is normal conjunctiva bilaterally. No signs of icterus. Ears, nose, mouth and throat: There are moist mucous membranes and no oral lesions. Neck: The neck is supple, there is no tenderness, no JVD, no carotid bruit. Cardiovascular: Rapid rate, irregular rhythm. No murmur appreciated. Respiratory: Faint crepitant rales bilateral bases. Gastrointestinal: Soft, non-distended, non-tender abdomen without masses or organomegaly noted. There is no rebound or guarding present. No CVA tenderness. Bowel sounds are unremarkable. No bruit appreciated. No pain on palpation. Back: There is no tenderness to palpation in the midline. There is no obvious deformity. No rashes noted. Musculoskeletal: Normal ROM, no tenderness, mild pedal edema. There is no calf tenderness or swelling. Sensation intact. Pulses equal bilaterally 2+. Neurological: CN II-XII intact, There are no obvious motor or sensory deficits. Coordination appears grossly intact. Speech is normal. No focal or lateralizing findings. Skin: Skin is warm and dry and no rashes or lesions are noted. Psychiatric: Cooperative, Limitations: no limitations Course Vital Signs 06/15/19 06/15/19 06/15/19 11:13 11:18 11:25 Temperature 97.8 F Pulse Rate 44 L 187 H 123 H Respiratory 16 22 Rate Blood Pressure 62/49 102/70 O2 Sat by Pulse 98 98 Oximetry 06/15/19 12:01 Temperature Pulse Rate 110 H Respiratory 22 Rate Blood Pressure 100/79 O2 Sat by Pulse 96 Oximetry EKG Findings - EKG Comments: EKG Findings:: EKG was done and reviewed at 1424 showing A. fib with RVR. The right axis. Nonspecific ST T wave changes. Heart rate 132 QRS 94 QT is 326 QTc is 43. This EKG was compared to one done on 06/02/[address] Singh Medical Decision Making - Medical Decision Making Medical decision making; this is a 68-year-old male with recent diagnosis of A. fib with RVR. He states he was converted to normal sinus rhythm prior to going home but several days later was back into A. fib. At that time while visiting with his family physician or his lap hand tool she was placed on amiodarone. The patient's been on amiodarone for several days only. Other medications as listed earlier. Currently patient is chest pain-free. The patient received 500 ML's of normal saline, heart rate currently 100 with 5 mg of Cardizem on board. Blood pressure 100/79. Patient's labs show white count 13 hemoglobin 16 hematocrit of 51 with platelets of 369. Potassium 5.7, BUN 34 creatinine 1.81 and GFR of 38. Glucose 205, CK 46 troponin less than 0.012. BNP 6350. Chest x-ray was done and reviewed by radiologist his impression is; heart mildly enlarged. Diffuse interstitial prominence. No consolidation or pleural effusion. Impression; 1 mild cardiomegaly. #2 interstitial prominence, possible bronchitis or asthma. As read by Dr. Keen The patient is resting comfortably at this time current vital signs show a pulse of 107 still A. fib, pulse ox 98% with blood pressure 110/82. Patient be admitted [facility] and cardiology will be notified. - Lab Data Result diagrams: 06/15/19 11:31 06/15/19 11:31 Lab Results 06/15/19 06/15/19 06/15/19 Range/Units 11:31 11:31 11:31 WBC 13.2 H (3.8-10.6) k/uL RBC 4.98 (4.30-5.90) m/uL Hgb 16.1 (13.0-17.5) gm/dL Hct 51.3 (39.0-53.0) % MCV 103.1 H (80.0-100.0) fL MCH 32.4 (25.0-35.0) pg MCHC 31.5 (31.0-37.0) g/dL RDW 13.6 (11.5-15.5) % Plt Count 369 (150-450) k/uL Neutrophils % 79 % Lymphocytes % 11 % Monocytes % 7 % Eosinophils % 1 % Basophils % 1 % Neutrophils # 10.5 H (1.3-7.7) k/uL Lymphocytes # 1.4 (1.0-4.8) k/uL Monocytes # 0.9 (0-1.0) k/uL Eosinophils # 0.2 (0-0.7) k/uL Basophils # 0.1 (0-0.2) k/uL Macrocytosis Slight PT (9.0-12.0) sec INR (<1.2) APTT (22.0-30.0) sec Sodium 137 (137-145) mmol/L Potassium 5.7 H (3.5-5.1) mmol/L Chloride 100 (98-107) mmol/L Carbon Dioxide 24 (22-30) mmol/L Anion Gap 13 mmol/L BUN 34 H (9-20) mg/dL Creatinine 1.81 H (0.66-1.25) mg/dL Est GFR (CKD-EPI)AfAm 44 (>60 ml/min/1.73 sqM) Est GFR (CKD-EPI)NonAf 38 (>60 ml/min/1.73 sqM) Glucose 205 H (74-99) mg/dL Calcium 9.3 (8.4-10.2) mg/dL Magnesium 2.7 H (1.6-2.3) mg/dL Total Bilirubin 1.0 (0.2-1.3) mg/dL AST 49 (17-59) U/L ALT 59 (21-72) U/L Alkaline Phosphatase 74 (38-126) U/L Creatine Kinase 46 L (55-170) U/L CK-MB (CK-2) 0.7 (0.0-2.4) ng/mL Troponin I <0.012 (0.000-0.034) ng/mL NT-Pro-B Natriuret Pep pg/mL Total Protein 7.6 (6.3-8.2) g/dL Albumin 4.4 (3.5-5.0) g/dL 06/15/19 06/15/19 Range/Units 11:31 11:31 WBC (3.8-10.6) k/uL RBC (4.30-5.90) m/uL Hgb (13.0-17.5) gm/dL Hct (39.0-53.0) % MCV (80.0-100.0) fL MCH (25.0-35.0) pg MCHC (31.0-37.0) g/dL RDW (11.5-15.5) % Plt Count (150-450) k/uL Neutrophils % % Lymphocytes % % Monocytes % % Eosinophils % % Basophils % % Neutrophils # (1.3-7.7) k/uL Lymphocytes # (1.0-4.8) k/uL Monocytes # (0-1.0) k/uL Eosinophils # (0-0.7) k/uL Basophils # (0-0.2) k/uL Macrocytosis PT 11.5 (9.0-12.0) sec INR 1.1 (<1.2) APTT 24.6 (22.0-30.0) sec Sodium (137-145) mmol/L Potassium (3.5-5.1) mmol/L Chloride (98-107) mmol/L Carbon Dioxide (22-30) mmol/L Anion Gap mmol/L BUN (9-20) mg/dL Creatinine (0.66-1.25) mg/dL Est GFR (CKD-EPI)AfAm (>60 ml/min/1.73 sqM) Est GFR (CKD-EPI)NonAf (>60 ml/min/1.73 sqM) Glucose (74-99) mg/dL Calcium (8.4-10.2) mg/dL Magnesium (1.6-2.3) mg/dL Total Bilirubin (0.2-1.3) mg/dL AST (17-59) U/L ALT (21-72) U/L Alkaline Phosphatase (38-126) U/L Creatine Kinase (55-170) U/L CK-MB (CK-2) (0.0-2.4) ng/mL Troponin I (0.000-0.034) ng/mL NT-Pro-B Natriuret Pep 6350 pg/mL Total Protein (6.3-8.2) g/dL Albumin (3.5-5.0) g/dL Disposition Clinical Impression: Unstable angina pectoris, Atrial fibrillation with RVR, Acute renal insufficiency Disposition: ADMITTED IP TO THIS HOSP Condition: Serious Is patient prescribed a controlled substance at d/c from ED?: No Referrals: Bridgett Zacarias DO [Primary Care Provider] - 1-2 days
[2019-06-15 11:56] LABS: Basophils # (A) 0.1 k/uL (0-0.2); Basophils % (A) 1 %; Eosinophils # (A) 0.2 k/uL (0-0.7); Eosinophils % (A) 1 %; HCT 51.3 % (39.0-53.0); HGB 16.1 gm/dL (13.0-17.5); Lymphocytes # (A) 1.4 k/uL (1.0-4.8); Lymphocytes % (A) 11 %; MCH 32.4 pg (25.0-35.0); MCHC 31.5 g/dL (31.0-37.0); MCV 103.1 fL (80.0-100.0); Macrocytosis Slight; Mean Platelet Volume 8.3; Monocytes # (A) 0.9 k/uL (0-1.0); Monocytes % (A) 7 %; Neutrophils # (A) 10.5 k/uL (1.3-7.7); Neutrophils % (A) 79 %; Platelet Count 369 k/uL (150-450); RBC 4.98 m/uL (4.30-5.90); RDW 13.6 % (11.5-15.5); WBC 13.2 k/uL (3.8-10.6)
--- NOTE | 2019-06-15 12:03 | XR ---
EXAMINATION TYPE: XR chest 1V portable DATE OF EXAM: 06/15/2019 Comparison: 05/31/2019 Clinical History: 68-year-old male chest pain Findings: Heart mildly enlarged. Diffuse interstitial prominence. No consolidation or pleural effusion. Impression: 1. Mild cardiomegaly. 2. Interstitial prominence, possible bronchitis or asthma.
[2019-06-15 12:08] LABS: Albumin 4.4 g/dL (3.5-5.0); Calcium 9.3 mg/dL (8.4-10.2); Magnesium 2.7 mg/dL (1.6-2.3); Potassium 5.7 mmol/L (3.5-5.1); Total Protein 7.6 g/dL (6.3-8.2)
[2019-06-15 12:20] LABS: INR 1.1 (<1.2); Partial Thromboplastin Time 24.6 sec (22.0-30.0); Prothrombin Time 11.5 sec (9.0-12.0)
[2019-06-15 12:29] LABS: Creatine Kinase MB 0.7 ng/mL (0.0-2.4); Troponin I <0.012 ng/mL (0.000-0.034)
[2019-06-15] MEDS ORDERED: NALOXONE 0.4 MG/ML 1 ML VIAL IV PRN (12:51)
[2019-06-15] MEDS ORDERED: FUROSEMIDE 10 MG/ML 4 ML VIAL IV STA (12:51)
--- NOTE | 2019-06-15 14:02 | P.HPIM ---
History of Present Illness 68-year-old pleasant gentleman was known to me from his previous hospitalization he came in because of chest pain patient started having chest pressure-like sensation along with diaphoresis constant lasted for a few hours but gotten better by the time EMS arrived and decided to stay home but later when he was going to cardiology clinic on his way there patient started having chest pressure no palpitations became diaphoretic Brenden came to ER was found to have low blood pressure and is in A. fib with rapid rate because of which patient received the IV fluids and once his blood pressure improved patient was given a dose of Cardizem in ER. Patient does have redness of breath and some orthopnea as well denied any proximal nocturnal dyspnea. Patient denied any fever chills. 6. Showed some pulmonary edema patient does have elevated BNP up to 6000 and his previous BNP was 2000. IV fluids at this can you patient was given a dose of Lasix and patient will be started on IV Lasix patient does have ejection fraction of 20-25% from his previous hospitalization. Patient was on amiodarone and metoprolol. Patient will be resumed on his home medications his heart rate has come down to low 100s now area patient is on Eliquis which will be continued. Patient's serum creatinine baseline is around 1 has gone up to 1.8 secondary to congestive heart failure expected to improve with IV Lasix patient potassium went up to 5.7 patient is on Aldactone and Isopril which will be held temporarily. Review of Systems REVIEW OF SYSTEMS: CONSTITUTIONAL: No fever, no malaise, no fatigue. HEENT: No recent visual problems or hearing problems. Denied any sore throat. CARDIOVASCULAR: no palpitations, no syncope. PULMONARY: no hemoptysis. GASTROINTESTINAL: No diarrhea, no nausea, no vomiting, no abdominal pain. NEUROLOGICAL: No headaches, no weakness, no numbness. HEMATOLOGICAL: Denies any bleeding or petechiae. GENITOURINARY: Denies any burning micturition, frequency, or urgency. MUSCULOSKELETAL/RHEUMATOLOGICAL: Denies any joint pain, swelling, or any muscle pain. ENDOCRINE: Denies any polyuria or polydipsia. The rest of the 14-point review of systems is negative. Past Medical History Past Medical History: Atrial Fibrillation, Heart Failure, Diabetes Mellitus, GI Bleed, Hypertension, Liver Disease, Osteoarthritis (OA) Additional Past Medical History / Comment(s): Pt recently admitted to [facility] on 05/31/19 with Afib RVR with cardioversion/EF 20-25%. Other hx; NIDDM type II, CHF-pt does not recall this, recent elevated LFTs-recent liver ultrasound, rectal bleed with blood transfusion-colonoscopy normal, arthritis bilateral knees. History of Any Multi-Drug Resistant Organisms: None Reported Past Surgical History: Orthopedic Surgery Additional Past Surgical History / Comment(s): 06/03/19 [facility]/cardioversion, bilateral carpal tunnel releases, colonoscopy. Past Anesthesia/Blood Transfusion Reactions: No Reported Reaction Smoking Status: Never smoker - Past Family History Father Family Medical History: Cancer, Coronary Artery Disease (CAD), Myocardial Infarction ([place]) Additional Family Medical History / Comment(s): colon cancer, 2 MIs Mother Family Medical History: No Reported History Medications and Allergies Home Medications Medication Instructions Recorded Confirmed Type Apixaban [Eliquis] 5 mg PO BID #60 tab 06/04/19 06/15/19 Rx Furosemide [Lasix] 40 mg PO BID@0900,1600 #60 tab 06/04/19 06/15/19 Rx Lisinopril [Zestril] 10 mg PO DAILY #30 tab 06/04/19 06/15/19 Rx Metoprolol Succinate (ER) [Toprol 100 mg PO DAILY #30 tab.er.24h 06/04/19 06/15/19 Rx XL] Spironolactone [Aldactone] 50 mg PO DAILY #30 tab 06/04/19 06/15/19 Rx Amiodarone [Cordarone] 200 mg PO TID 06/15/19 06/15/19 History Allergies Allergy/AdvReac Type Severity Reaction Status Date / Time codeine Allergy Unknown Verified 06/15/19 11:52 Physical Exam Vitals: Vital Signs Temp Pulse Resp BP Pulse Ox 06/15/19 12:01 110 H 22 100/79 96 06/15/19 11:25 123 H 22 102/70 98 06/15/19 11:18 187 H 06/15/19 11:13 97.8 F 44 L 16 62/49 98 Intake and Output 06/14/19 06/15/19 06/15/19 22:59 06:59 14:59 Other: Weight 110.677 kg PHYSICAL EXAMINATION: GENERAL: The patient is alert and oriented x3, not in any acute distress. Well developed, well nourished. HEENT: Pupils are round and equally reacting to light. EOMI. No scleral icterus. No conjunctival pallor. Normocephalic, atraumatic. No pharyngeal erythema. No thyromegaly. CARDIOVASCULAR: S1 and S2 present. No murmurs, rubs, or gallops. PULMONARY: Chest is clear to auscultation, no wheezing or crackles. ABDOMEN: Soft, nontender, nondistended, normoactive bowel sounds. No palpable organomegaly. MUSCULOSKELETAL: No joint swelling or deformity. EXTREMITIES: No cyanosis, clubbing, or pedal edema. NEUROLOGICAL: Gross neurological examination did not reveal any focal deficits. SKIN: No rashes. Results CBC & Chem 7: 06/15/19 11:31 06/15/19 11:31 Labs: Abnormal Lab Results - Last 24 Hours (Table) 06/15/19 06/15/19 Range/Units 11:31 11:31 WBC 13.2 H (3.8-10.6) k/uL MCV 103.1 H (80.0-100.0) fL Neutrophils # 10.5 H (1.3-7.7) k/uL Potassium 5.7 H (3.5-5.1) mmol/L BUN 34 H (9-20) mg/dL Creatinine 1.81 H (0.66-1.25) mg/dL Glucose 205 H (74-99) mg/dL Magnesium 2.7 H (1.6-2.3) mg/dL Creatine Kinase 46 L (55-170) U/L Thrombosis Risk Factor Assmnt - Choose All That Apply Any of the Below Risk Factors Present?: Yes Each Factor Represents 1 point: Obesity (BMI >25) Other Risk Factors: Yes Each Risk Factor Represents 2 Points: Age 61-74 years Other congenital or acquired thrombophilia - If yes, enter type in comment: No Thrombosis Risk Factor Assessment Total Risk Factor Score: 3 Thrombosis Risk Factor Assessment Level: Moderate Risk Assessment and Plan Plan: -Chest pain, rule out unstable angina 2 more sets of troponins and EKGs. -Congestive heart failure chronic systolic dysfunction with mild acute ex acerbation IV Lasix as mentioned above hold off on WALE inhibitor and Aldactone because of hyperkalemia -Acute renal failure secondary to prerenal azotemia from congestive heart failure exacerbation expected to improve with IV Lasix will repeat the basic metabolic profile tomorrow -Atrial fibrillation with rapid ventricular rate atrial fibrillation may be contributing to his chest pain. Continue with amiodarone and metoprolol patient will not be started on Cardizem because of congestive heart failure and low normal blood pressure. -Elevated blood sugars patient's previous hemoglobin A1c 6.8 is diabetic, dietary counseling will be provided. -Hypertension: Presently hypotensive -Hyperkalemia secondary to renal failure, lisinopril and Aldactone.
[2019-06-15] MEDS: AMIODARONE 200 MG TAB PO SCH ×2 (18:33→21:30)
[2019-06-15] MEDS: FUROSEMIDE 10 MG/ML 4 ML VIAL IV SCH (20:02)
[2019-06-15] MEDS: APIXABAN 5 MG TAB PO SCH (20:02)
[2019-06-15 20:45] LABS: Glucose,Whole Blood 181 mg/dL (75-99)
[2019-06-15] MEDS ORDERED: INSULIN ASPART (NovoLOG) 100 UNIT/ML VIAL SQ ONE (22:38)
[2019-06-15 22:58] LABS: Glucose,Whole Blood 128 mg/dL (75-99)
[2019-06-15] MEDS: INSULIN ASPART (NovoLOG) 100 UNIT/ML VIAL SQ SCH (23:47)
[2019-06-16 00:04] LABS: Creatine Kinase MB 0.5 ng/mL (0.0-2.4); Troponin I <0.012 ng/mL (0.000-0.034)
[2019-06-16 06:06] LABS: Glucose,Whole Blood 118 mg/dL (75-99)
[2019-06-16] MEDS: INSULIN ASPART (NovoLOG) 100 UNIT/ML VIAL SQ SCH ×4 (06:08→21:12)
[2019-06-16 06:46] LABS: HCT 48.8 % (39.0-53.0); HGB 15.4 gm/dL (13.0-17.5); MCH 32.7 pg (25.0-35.0); MCHC 31.6 g/dL (31.0-37.0); MCV 103.6 fL (80.0-100.0); Macrocytosis Slight; Mean Platelet Volume 7.9; Platelet Count 300 k/uL (150-450); RBC 4.71 m/uL (4.30-5.90); RDW 13.8 % (11.5-15.5); WBC 11.6 k/uL (3.8-10.6)
[2019-06-16 06:57] LABS: Albumin 3.7 g/dL (3.5-5.0); Calcium 8.8 mg/dL (8.4-10.2); Potassium 4.4 mmol/L (3.5-5.1); Total Bilirubin 0.8 mg/dL (0.2-1.3); Total Protein 6.7 g/dL (6.3-8.2)
[2019-06-16] MEDS ORDERED: INSULIN ASPART (NovoLOG) 100 UNIT/ML VIAL SQ SCH (07:30)
[2019-06-16] MEDS: METOPROLOL SUCCINATE (ER) 100 MG TAB.ER.24H PO SCH (09:08)
[2019-06-16] MEDS: APIXABAN 5 MG TAB PO SCH ×2 (09:09→21:16)
[2019-06-16] MEDS: AMIODARONE 200 MG TAB PO SCH ×2 (09:09→21:16)
[2019-06-16] MEDS: FUROSEMIDE 10 MG/ML 4 ML VIAL IV SCH (09:09)
--- NOTE | 2019-06-16 09:46 | P.CRDCN ---
History of Present Illness Consult date: 06/16/19 Requesting physician: Annetta Baumann Consult reason: atrial fibrillation Chief complaint: Near syncope History of present illness: This is a 68-year-old gentleman who follows with Dr. Chapa in the office, he actually had an appointment with him scheduled for yesterday. Patient has history of paroxysmal atrial fibrillation, history of heavy alcohol use in the past, he did stop completely this year, hypertension, diabetes, hyperlipidemia, he states that he didn't feel well when he got up yesterday, he had a sensation as though he may pass out, he denied any chest discomfort but did state that he felt his heart racing fast, he became diaphoretic. Subsequent to that the patient was in his car, coming to an appointment with Dr. Henson and again developed similar symptoms, he was very lightheaded, diaphoretic, felt his heart racing fast and thought he may pass out. Instead of going to the office the brought him directly to the emergency room. Chest x-ray on presentation here showed mild cardiomegaly with interstitial prominence, possible bronchitis or asthma. EKG showed atrial fibrillation with a rapid ventricular response. Blood pressure on arrival here 102/70 with a heart rate of 1:30, 90% on 2 L of oxygen. White blood cell count on arrival 13.2, 11.6 this morning, hemoglobin 15.4, platelet count 300. On admission his sodium was 137, potassium 5.7, BUN 34, creatinine 1.8, magnesium 2.7, this morning sodium 140, potassium 4.4, BUN 35 and creatinine 1.5. BNP level 6350, troponins negative 3. Patient was initiated on IV Lasix on arrival here, he diuresed well through the night last night, he is currently on metoprolol 100 mg daily along with his Eliquis 5 twice a day, amiodarone 200 mg 3 times a day, he also received an IV fluid bolus on arrival here and continues to be at this time on Cardizem for rate control. Patient had an echocardiogram with Doppler study performed on June 01, he was admitted to the hospital at that time with atrial fibrillation with a rapid ventricular response. His LV function showed severe global hypokinesia with an ejection fraction of 20-25%. Patient's home medications included Aldactone 50 mg daily, Toprol 100 mg daily, Zestril 10 mg daily, Lasix 40 twice a day, Eliquis 5 twice a day, and amiodarone 200 mg one tablet by mouth 3 times a day. His Aldactone and lisinopril are currently on hold because of abnormal renal function and elevated potassium on admission here. At the time of my examination this morning, patient states he is feeling much better, back to his normal self. Past Medical History Past Medical History: Atrial Fibrillation, Heart Failure, Diabetes Mellitus, GI Bleed, Hypertension, Liver Disease, Osteoarthritis (OA) Additional Past Medical History / Comment(s): Pt recently admitted to [facility] on 05/31/19 with Afib RVR with cardioversion/EF 20-25%. Other hx; NIDDM type II, CHF-pt does not recall this, recent elevated LFTs-recent liver ultrasound, rectal bleed with blood transfusion-colonoscopy normal, arthritis bilateral knees. History of Any Multi-Drug Resistant Organisms: None Reported Past Surgical History: Orthopedic Surgery Additional Past Surgical History / Comment(s): 06/03/19 COURTNEY/cardioversion, bilateral carpal tunnel releases, colonoscopy. Past Anesthesia/Blood Transfusion Reactions: No Reported Reaction Smoking Status: Never smoker - Past Family History Father Family Medical History: Cancer, Coronary Artery Disease (CAD), Myocardial Infarction (MO) Additional Family Medical History / Comment(s): colon cancer, 2 MIs Mother Family Medical History: No Reported History Medications and Allergies Home Medications Medication Instructions Recorded Confirmed Type Apixaban [Eliquis] 5 mg PO BID #60 tab 06/04/19 06/15/19 Rx Furosemide [Lasix] 40 mg PO BID@0900,1600 #60 tab 06/04/19 06/15/19 Rx Lisinopril [Zestril] 10 mg PO DAILY #30 tab 06/04/19 06/15/19 Rx Metoprolol Succinate (ER) [Toprol 100 mg PO DAILY #30 tab.er.24h 06/04/19 06/15/19 Rx XL] Spironolactone [Aldactone] 50 mg PO DAILY #30 tab 06/04/19 06/15/19 Rx Amiodarone [Cordarone] 200 mg PO TID 06/15/19 06/15/19 History Allergies Allergy/AdvReac Type Severity Reaction Status Date / Time codeine Allergy Unknown Verified 06/15/19 11:52 Physical Exam Vitals: Vital Signs Temp Pulse Pulse Resp BP BP Pulse Ox 06/16/19 04:00 98.1 F 116 H 16 96/73 96 06/15/19 23:30 98.2 F 114 H 16 115/75 95 06/15/19 20:00 98.0 F 112 H 18 111/73 94 L 06/15/19 17:00 97.7 F 107 H 20 108/50 95 06/15/19 16:48 97.8 F 110 H 20 115/78 98 06/15/19 16:00 111 H 15 104/80 98 06/15/19 15:00 112 H 16 105/83 06/15/19 14:00 100 20 93/74 99 06/15/19 13:00 107 H 17 110/82 95 06/15/19 12:01 110 H 22 100/79 96 06/15/19 12:00 112 H 18 97/74 95 06/15/19 11:25 123 H 22 102/70 98 06/15/19 11:23 98 06/15/19 11:18 187 H 06/15/19 11:13 97.8 F 44 L 16 62/49 98 Intake and Output 06/15/19 06/16/19 06/16/19 22:59 06:59 14:59 Intake Total 120 Output Total 1000 400 Balance -1000 -400 120 Intake: Oral 120 Output: Urine 1000 400 Other: # Voids 0 Weight 110.4 kg PHYSICAL EXAMINATION: GENERAL: 68-year-old gentleman in no acute distress at the time of my examination HEENT: Head is atraumatic, normocephalic. Pupils equal, round. Sclera anic teric. Conjunctiva are clear. Mucous membranes of the mouth are moist. Neck is supple. There is no elevated jugular venous pressure. No carotid bruit is heard. HEART EXAMINATION: Heart S1 and S2 irregularly irregular CHEST EXAMINATION: Lungs are clear to auscultation and precussion. No chest wall tenderness is noted on palpation or with deep breathing. ABDOMEN: Soft, nontender. Bowel sounds are heard. No organomegaly noted. EXTREMITIES: 2+ peripheral pulses with no evidence of peripheral edema and no calf tenderness noted. NEUROLOGIC patient is awake, alert and oriented 3 . . Results 06/16/19 06:08 06/16/19 06:08 Cardiac Enzymes 06/15/19 06/15/19 06/15/19 Range/Units 11: 11: 17:16 AST 49 (17-59) U/L CK-MB (CK-2) 0.7 0.6 (0.0-2.4) ng/mL Troponin I <0.012 (0.000-0.034) ng/mL 06/15/19 06/15/19 06/16/19 Range/Units 17:16 23:19 06:08 AST (17-59) U/L CK-MB (CK-2) 0.5 (0.0-2.4) ng/mL Troponin I <0.012 <0.012 <0.012 (0.000-0.034) ng/mL 06/16/19 Range/Units 06:08 AST 48 (17-59) U/L CK-MB (CK-2) (0.0-2.4) ng/mL Troponin I (0.000-0.034) ng/mL Coagulation 06/15/19 Range/Units 11:31 PT 11.5 (9.0-12.0) sec APTT 24.6 (22.0-30.0) sec CBC 06/15/19 06/16/19 Range/Units 11:31 06:08 WBC 13.2 H 11.6 H (3.8-10.6) k/uL RBC 4.98 4.71 (4.30-5.90) m/uL Hgb 16.1 15.4 (13.0-17.5) gm/dL Hct 51.3 48.8 (39.0-53.0) % Plt Count 369 300 (150-450) k/uL Comprehensive Metabolic Panel 06/15/19 06/16/19 Range/Units 11:31 06:08 Sodium 137 140 (137-145) mmol/L Potassium 5.7 H 4.4 (3.5-5.1) mmol/L Chloride 100 103 (98-107) mmol/L Carbon Dioxide 24 24 (22-30) mmol/L BUN 34 H 35 H (9-20) mg/dL Creatinine 1.81 H 1.59 H (0.66-1.25) mg/dL Glucose 205 H 122 H (74-99) mg/dL Calcium 9.3 8.8 (8.4-10.2) mg/dL AST 49 48 (17-59) U/L ALT 59 52 (21-72) U/L Alkaline Phosphatase 74 64 (38-126) U/L Total Protein 7.6 6.7 (6.3-8.2) g/dL Albumin 4.4 3.7 (3.5-5.0) g/dL Current Medications Generic Name Dose Route Start Last Admin Trade Name Freq PRN Reason Stop Dose Admin Amiodarone HCl 200 mg 06/15/19 16:00 06/16/19 09:09 Cordarone PO 200 mg TID KAITLIN Administration Apixaban 5 mg 06/15/19 21:00 06/16/19 09:09 Eliquis PO 5 mg BID KAITLIN Administration Furosemide 40 mg 06/15/19 21:00 06/16/19 09:09 Lasix IV 40 mg BID KAITLIN Administration Insulin Aspart 0 unit 06/15/19 22:44 06/16/19 06:08 Novolog SQ Not Given ACHS [facility] Protocol Metoprolol Succinate 100 mg 06/16/19 09:00 06/16/19 09:08 Toprol Xl PO 100 mg DAILY KAITLIN Administration Naloxone HCl 0.2 mg 06/15/19 12:51 Narcan IV Q2M PRN Opioid Reversal Intake and Output 06/15/19 06/16/19 06/16/19 22:59 06:59 14:59 Intake Total 120 Output Total 1000 400 Balance -1000 -400 120 Intake: Oral 120 Output: Urine 1000 400 Other: # Voids 0 Weight 110.4 kg 06/16/19 06:08 06/16/19 06:08 EKG Interpretations (text) EKG on presentation here showed atrial fibrillation with a rapid ventricular response Assessment and Plan Plan: Assessment and plan #1 symptoms of lightheadedness and near-syncope, could be secondary to atrial fibrillation with rapid ventricular response and associated hypotension #2 atrial fibrillation with rapid ventricular response, paroxysmal #3 systolic congestive heart failure acute on chronic #4 nonischemic cardiomyopathy #5 history of significant EtOH abuse #6 diabetes #7 hyperlipidemia #8 hypertension #9 elevated creatinine of 1.8 on admission, 1.5 this morning. Plan She just had an echocardiogram with Doppler study performed on June 01, showed an ejection fraction of 20-25% at that time. We will not repeat an echo on this admission. We will discontinue the IV Cardizem as the patient has an ejection fraction of 20%, increase the dose of amiodarone to 400 mg by mouth twice a day today. Continue metoprolol. Continue to hold Aldactone, and tomorrow we will resume the Zestril at a lower dose of 5 mg daily. Discontinue IV Lasix. We will check orthostatic heart rate and blood pressure every shift and monitor for any significant bradycardia arrhythmias. Further recommendations to follow. DNP note has been reviewed, I agree with a documented findings and plan of care. Patient was seen and examined.
[2019-06-16 11:41] LABS: Glucose,Whole Blood 99 mg/dL (75-99)
--- NOTE | 2019-06-16 13:14 | P.PN ---
Subjective Patient was admitted for atrial fibrillation with rapid ventricular rate his amiodarone dose was increased. Patient heart rate is still in is around 110- 120. Patient respiratory status improved clinically feeling much better IV Lasix was discontinued. Can you to hold off on lisinopril and Aldactone. Serum creatinine improved from 1.8-1.5 with IV Lasix. Constitutional: Denied any fatigue denied any fever. Cardio vascular: denied any chest pain, palpitations Gastrointestinal denied any nausea vomiting Pulmonary: Denied any shortness of breath cough Neurologic denied any new focal deficits All inpatient medications were reviewed and appropriate changes in these medications as dictated in the interval history and assessment and plan. Objective - Vital Signs Vital signs: Vital Signs Temp 97.8 F 06/16/19 11:30 Pulse 122 H 06/16/19 11:30 Resp 18 06/16/19 11:30 BP 104/67 06/16/19 11:30 Pulse Ox 97 06/16/19 11:30 Intake & Output 06/15/19 06/16/19 06/16/19 18:59 06:59 18:59 Intake Total 120 Output Total 300 1400 Balance -300 -1400 120 Weight 110.677 kg 110.4 kg Intake: Oral 120 Output: Urine 300 1400 Other: # Voids 1 - Exam PHYSICAL EXAMINATION: GENERAL: The patient is alert and oriented x3, not in any acute distress. Well developed, well nourished. HEENT: Pupils are round and equally reacting to light. EOMI. No scleral icterus. No conjunctival pallor. Normocephalic, atraumatic. No pharyngeal erythema. No thyromegaly. CARDIOVASCULAR: S1 and S2 present. No murmurs, rubs, or gallops. Patient is tachycardic PULMONARY: Chest is clear to auscultation, no wheezing or crackles. ABDOMEN: Soft, nontender, nondistended, normoactive bowel sounds. No palpable organomegaly. MUSCULOSKELETAL: No joint swelling or deformity. EXTREMITIES: No cyanosis, clubbing, or pedal edema. NEUROLOGICAL: Gross neurological examination did not reveal any focal deficits. SKIN: No rashes. - Labs CBC & Chem 7: 06/16/19 06:08 06/16/19 06:08 Labs: Abnormal Lab Results - Last 24 Hours (Table) 06/15/19 06/15/19 06/15/19 Range/Units 17:16 20:44 22:48 WBC (3.8-10.6) k/uL MCV (80.0-100.0) fL BUN (9-20) mg/dL Creatinine (0.66-1.25) mg/dL Glucose (74-99) mg/dL POC Glucose (mg/dL) 181 H 128 H (75-99) mg/dL Creatine Kinase 44 L (55-170) U/L 06/15/19 06/16/19 06/16/19 Range/Units 23:19 06:04 06:08 WBC 11.6 H (3.8-10.6) k/uL MCV 103.6 H (80.0-100.0) fL BUN (9-20) mg/dL Creatinine (0.66-1.25) mg/dL Glucose (74-99) mg/dL POC Glucose (mg/dL) 118 H (75-99) mg/dL Creatine Kinase 39 L (55-170) U/L 06/16/19 Range/Units 06:08 WBC (3.8-10.6) k/uL MCV (80.0-100.0) fL BUN 35 H (9-20) mg/dL Creatinine 1.59 H (0.66-1.25) mg/dL Glucose 122 H (74-99) mg/dL POC Glucose (mg/dL) (75-99) mg/dL Creatine Kinase (55-170) U/L Assessment and Plan Plan: -Chest pain, rule out probably related to atrial fibrillation. Evaluated the patient -Congestive heart failure chronic systolic dysfunction with mild acute exacerbation improved with IV Lasix patient will be restarted back on his doctor tomorrow if his potassium remains stable. -Acute renal failure secondary to prerenal azotemia from congestive heart fa ilure exacerbation improved with IV Lasix repeat basic metabolic profile tomorrow a 6 is being discontinued now -Atrial fibrillation with rapid ventricular rate atrial fibrillation may be contributing to his chest pain. Increase the dose of amiodarone -Elevated blood sugars patient's previous hemoglobin A1c 6.8 is diabetic, dietary counseling will be provided. -Hypertension: Presently hypotensive -Hyperkalemia secondary to renal failure, lisinopril and Aldactone. Improved now
[2019-06-16 16:59] LABS: Glucose,Whole Blood 119 mg/dL (75-99)
[2019-06-16] MEDS ORDERED: AMIODARONE 200 MG TAB PO SCH (21:00)
[2019-06-16 21:04] LABS: Glucose,Whole Blood 125 mg/dL (75-99)
[2019-06-17 06:23] LABS: Glucose,Whole Blood 120 mg/dL (75-99)
[2019-06-17] MEDS: INSULIN ASPART (NovoLOG) 100 UNIT/ML VIAL SQ SCH ×4 (06:33→20:38)
[2019-06-17 06:41] LABS: Calcium 8.9 mg/dL (8.4-10.2); Potassium 4.5 mmol/L (3.5-5.1)
[2019-06-17] MEDS: METOPROLOL SUCCINATE (ER) 100 MG TAB.ER.24H PO SCH (09:07)
[2019-06-17] MEDS: AMIODARONE 200 MG TAB PO SCH ×3 (09:07→20:47)
[2019-06-17] MEDS: APIXABAN 5 MG TAB PO SCH ×2 (09:08→20:47)
--- NOTE | 2019-06-17 11:24 | PN ---
PROGRESS NOTE Shravan is a 68-year-old gentleman who is admitted to hospital with atrial fibrillation and has underlying cardiomyopathy with severe LV dysfunction. He still remains in atrial fibrillation with somewhat of a poorly controlled ventricular rate but much better controlled than when he first came in. He is on Toprol XL 100 mg daily, Cordarone 400 t.i.d. Eliquis. PHYSICAL EXAMINATION: On exam, comfortable at rest. Heart rate is 110 beats per minute. Blood pressure is 101/68, respiratory rate is 18. Chest exam reveals good air entry bilaterally. Heart exam reveals first and second heart sounds, irregular rhythm. No murmur. Abdomen is soft. Examination of extremities did not reveal any edema. Peripheral pulses are felt. [employer] exam did not reveal focal neurological deficits. ASSESSMENT: 1. Persistent atrial fibrillation with poorly controlled ventricular rate. 2. Cardiomyopathy with severe left ventricular dysfunction. PLAN: He will continue with his current medications. Hopefully, heart rate will be better controlled tomorrow and he can be discharged home. MMODL / IJN: [id number] /
[2019-06-17 11:53] LABS: Glucose,Whole Blood 129 mg/dL (75-99)
--- NOTE | 2019-06-17 16:41 | P.PN ---
Subjective Progress Note Date: 06/17/19 Principal diagnosis: This is a 68-year-old male who was admitted for atrial fibrillation with rapid ventricular rate and is being closely monitored. Cardiology is following the yonathan ankur closely as well. Patient denies having any shortness of breath at this time. Patient states that he does get a little winded with exertion but has improved since yesterday. Patient denies any chest pain or palpitations at this time. Patient is tolerating diet and states he is drinking plenty of water. Patient feels that the issue at home was that he was not drinking enough water. Patient states that he is up to the bathroom and around the room with no difficulties. Patient IV Lasix was discontinued yesterday and patient is not currently on any IV hydration. Patient states that his blood sugars have been well controlled. Patient denies any nausea or vomiting or diarrhea at this time. Objective - Vital Signs Vital signs: Vital Signs Temp 98.0 F 06/17/19 11:25 Pulse 118 H 06/17/19 11:25 Resp 18 06/17/19 11:25 BP 100/70 06/17/19 11:25 Pulse Ox 97 06/17/19 11:25 Intake & Output 06/16/19 06/17/19 06/17/19 18:59 06:59 18:59 Intake Total 360 480 Output Total 500 Balance 360 -500 480 Weight 100.4 kg Intake: Oral 360 480 Output: Urine 500 Other: # Voids 1 1 1 - Exam Gen: This is a 68-year-old male sitting up in the recliner with his legs elevated in no acute distress. Vital signs are stable. Temp is 98F respirations are 18, blood pressure is 100/70, heart rate is 118, oxygen saturation is 97% on room air. HEENT: Head is atraumatic, normocephalic. Pupils equal, round. Sclerae is anicteric. NECK: Supple. No JVD. No lymphadenopathy. No thyromegaly. LUNGS: Clear to auscultation. No wheezes or rhonchi. No intercostal retractions. HEART: Irregular rate and rhythm. A. fib No murmur. ABDOMEN: Soft. Bowel sounds are present. No masses. Obese. No tenderness. EXTREMITIES: No pedal edema. No calf tenderness. NEUROLOGICAL: Patient is awake, alert and oriented x3. Cranial nerves 2 through 12 are grossly intact. - Labs CBC & Chem 7: 06/16/19 06:08 06/17/19 06:14 Labs: Abnormal Lab Results - Last 24 Hours (Table) 06/16/19 06/16/19 06/17/19 Range/Units 16:47 21:03 06:14 BUN 33 H (9-20) mg/dL Creatinine 1.35 H (0.66-1.25) mg/dL Glucose 125 H (74-99) mg/dL POC Glucose (mg/dL) 119 H 125 H (75-99) mg/dL 06/17/19 06/17/19 Range/Units 06:21 11:45 BUN (9-20) mg/dL Creatinine (0.66-1.25) mg/dL Glucose (74-99) mg/dL POC Glucose (mg/dL) 120 H 129 H (75-99) mg/dL Assessment and Plan Assessment: Chest pain, rule out probably related to atrial fibrillation Congestive heart failure chronic systolic dysfunction with mild acute exacerbation improved with IV Lasix. Will continue to monitor labs closely may restart Aldactone. Cardiology is following Acute renal failure secondary to prerenal azotemia from congestive heart failure exacerbation. Improved with IV Lasix. Will follow BMP closely Atrial fibrillation with RVR. Atrophic inhalation contributing to his chest pain. Patient denies any chest pain at this time. Amiodarone dose is being adjusted and increased per cardiology. Will continue to monitor vital signs closely. Elevated blood sugars: Patient's previous hemoglobin A1c was 6.8, dietary counseling was provided. Will continue to monitor blood glucose levels closely. Hypertension Hyperkalemia secondary to renal failure, lisinopril, and Aldactone. Improved. Current potassium is 4.5 this morning. Creatinine is 1.35 Recommendations and discussion Recommend continue current medication management and symptomatic treatment. Will continue to monitor closely. Cardiology is following closely. Guarded prognosis. Further recommendations to follow. Possible discharge in 48 hours.
[2019-06-17 16:55] LABS: Glucose,Whole Blood 118 mg/dL (75-99)
[2019-06-17 20:41] LABS: Glucose,Whole Blood 161 mg/dL (75-99)
[2019-06-18 06:05] LABS: Glucose,Whole Blood 131 mg/dL (75-99)
[2019-06-18] MEDS: INSULIN ASPART (NovoLOG) 100 UNIT/ML VIAL SQ SCH ×4 (06:08→19:33)
[2019-06-18] MEDS: APIXABAN 5 MG TAB PO SCH ×2 (08:11→20:40)
[2019-06-18] MEDS: METOPROLOL SUCCINATE (ER) 100 MG TAB.ER.24H PO SCH (08:11)
[2019-06-18] MEDS: AMIODARONE 200 MG TAB PO SCH ×3 (08:12→20:39)
[2019-06-18 11:31] LABS: Glucose,Whole Blood 140 mg/dL (75-99)
--- NOTE | 2019-06-18 11:42 | P.PN ---
Subjective Progress Note Date: 06/18/19 Principal diagnosis: Atrial fibrillation The patient is a 68-year-old male with past medical history of paroxysmal atrial fibrillation and alcoholic cardiomyopathy, who presented to the hospital with A. fib with RVR. Today the patient states he is doing relatively well, despite his heart rate going up to the 180s with ambulation. He states he did not feel dizzy and tired until he had been up for almost an hour in the bathroom. He denies any chest discomfort, exertional dyspnea, dizziness, or lightheadedness, and is currently resting comfortably in his recliner. He was recently admitted to the hospital earlier this month with cardiomyopathy and A. fib with RVR. He was successfully cardioverted by Dr. Chapa. GENERAL: Well-appearing, well-nourished and in no acute distress. NECK: Supple without JVD or thyromegaly. LUNGS: Breath sounds clear to auscultation bilaterally. Respiration equal and unlabored. No wheezes, rales or rhonchi. HEART: Regular rate and rhythm without murmurs, rubs or gallops. S1 and S2 heard. Tachycardic. EXTREMITIES: Normal range of motion, no edema. No clubbing or cyanosis. Peripheral pulses intact and strong. EKG shows atrial tachycardia with RVR Previous echocardiogram on June 01 showed EF at 20-25% Labs from 06/17/19: Sodium 138, potassium 4.5, BUN 33, creatinine 1.35 Assessment: #1 atrial tachycardia with RVR #2 systolic congestive heart failure, acute on chronic #3 nonischemic cardiomyopathy #4 history of EtOH abuse #5 hypertension Plan: Continue amiodarone 400 mg 3 times per day. Patient will undergo cardioversion on Thursday by Dr. Chapa. No current medication changes for elevated heart rates, as atrial tachycardia often does not respond to higher dose of medication. Consider outpatient ablation procedure in the future. Objective - Vital Signs Vital signs: Vital Signs Temp 97.5 F L 06/18/19 07:45 Pulse 107 H 06/18/19 07:45 Resp 20 06/18/19 07:45 BP 109/77 06/18/19 07:45 Pulse Ox 97 06/18/19 07:45 Intake & Output 06/17/19 06/18/19 06/18/19 18:59 06:59 18:59 Intake Total 720 240 Output Total 800 Balance 720 -560 Weight 111.9 kg Intake: Oral 720 240 Output: Urine 800 Other: Voiding Method Toilet # Voids 1 2 2 - Labs CBC & Chem 7: 06/16/19 06:08 06/17/19 06:14 Labs: Abnormal Lab Results - Last 24 Hours (Table) 06/17/19 06/17/19 06/17/19 Range/Units 11:45 16:42 20:29 POC Glucose (mg/dL) 129 H 118 H 161 H (75-99) mg/dL 06/18/19 06/18/19 Range/Units 06:03 11:29 POC Glucose (mg/dL) 131 H 140 H (75-99) mg/dL
--- NOTE | 2019-06-18 13:02 | P.PN ---
Subjective Patient was admitted for atrial fibrillation with rapid ventricular rate his amiodarone dose was increased. Patient heart rate is still in is around 110- 120. Patient respiratory status improved clinically feeling much better IV Lasix was discontinued. Can you to hold off on lisinopril and Aldactone. Serum creatinine improved from 1.8-1.5 with IV Lasix. 06/18/2019 patient heart rate remains high patient is being continued on amiodarone and being constipated for cardioversion COURTNEY on Thursday. Constitutional: Denied any fatigue denied any fever. Cardio vascular: denied any chest pain, palpitations Gastrointestinal denied any nausea vomiting Pulmonary: Denied any shortness of breath cough Neurologic denied any new focal deficits All inpatient medications were reviewed and appropriate changes in these medications as dictated in the interval history and assessment and plan. Objective - Vital Signs Vital signs: Vital Signs Temp 97.5 F L 06/18/19 07:45 Pulse 106 H 06/18/19 11:54 Resp 20 06/18/19 11:54 BP 104/75 06/18/19 11:54 Pulse Ox 97 06/18/19 07:45 Intake & Output 06/17/19 06/18/19 06/18/19 18:59 06:59 18:59 Intake Total 720 240 Output Total 800 Balance 720 -560 Weight 111.9 kg Intake: Oral 720 240 Output: Urine 800 Other: Voiding Method Toilet # Voids 1 2 2 - Exam PHYSICAL EXAMINATION: GENERAL: The patient is alert and oriented x3, not in any acute distress. Well developed, well nourished. HEENT: Pupils are round and equally reacting to light. EOMI. No scleral icterus. No conjunctival pallor. Normocephalic, atraumatic. No pharyngeal erythema. No thyromegaly. CARDIOVASCULAR: S1 and S2 present. No murmurs, rubs, or gallops. Patient is tachycardic PULMONARY: Chest is clear to auscultation, no wheezing or crackles. ABDOMEN: Soft, nontender, nondistended, normoactive bowel sounds. No palpable organomegaly. MUSCULOSKELETAL: No joint swelling or deformity. EXTREMITIES: No cyanosis, clubbing, or pedal edema. NEUROLOGICAL: Gross neurological examination did not reveal any focal deficits. SKIN: No rashes. - Labs CBC & Chem 7: 06/16/19 06:08 06/17/19 06:14 Labs: Abnormal Lab Results - Last 24 Hours (Table) 06/17/19 06/17/19 06/18/19 Range/Units 16:42 20:29 06:03 POC Glucose (mg/dL) 118 H 161 H 131 H (75-99) mg/dL 06/18/19 Range/Units 11:29 POC Glucose (mg/dL) 140 H (75-99) mg/dL Assessment and Plan Plan: -Chest pain, rule out probably related to atrial fibrillation. It is still not well controlled, continue to my amiodarone possible cardioversion on Thursday -Congestive heart failure chronic systolic dysfunction with mild acute exacerbation improved with IV Lasix patient is off Lasix now. Repeat basic metabolic profile tomorrow -Acute renal failure secondary to prerenal azotemia from congestive heart failure exacerbation improved with IV Lasix repeat basic metabolic profile tomorrow -Atrial fibrillation with rapid ventricular rate atrial fibrillation may be cont ributing to his chest pain. Increase the dose of amiodarone -Elevated blood sugars patient's previous hemoglobin A1c 6.8 is diabetic, dietary counseling wasprovided. -Hypertension: Presently hypotensive -Hyperkalemia secondary to renal failure, lisinopril and Aldactone. Improved now, patient was not started back on lisinopril and Aldactone yet
[2019-06-18 17:02] LABS: Glucose,Whole Blood 119 mg/dL (75-99)
[2019-06-18 20:51] LABS: Glucose,Whole Blood 141 mg/dL (75-99)
[2019-06-19] MEDS: INSULIN ASPART (NovoLOG) 100 UNIT/ML VIAL SQ SCH ×4 (05:26→22:41)
[2019-06-19] MEDS: AMIODARONE 200 MG TAB PO SCH ×3 (05:32→20:52)
[2019-06-19] MEDS: METOPROLOL SUCCINATE (ER) 100 MG TAB.ER.24H PO SCH (05:32)
[2019-06-19 06:24] LABS: Glucose,Whole Blood 188 mg/dL (75-99)
[2019-06-19 06:53] LABS: Calcium 9.4 mg/dL (8.4-10.2); HCT 49.1 % (39.0-53.0); HGB 15.6 gm/dL (13.0-17.5); MCH 32.7 pg (25.0-35.0); MCHC 31.7 g/dL (31.0-37.0); MCV 103.1 fL (80.0-100.0); Macrocytosis Slight; Platelet Count 358 k/uL (150-450); Potassium 5.7 mmol/L (3.5-5.1); RBC 4.76 m/uL (4.30-5.90); WBC 13.5 k/uL (3.8-10.6)
[2019-06-19] MEDS: APIXABAN 5 MG TAB PO SCH ×2 (07:35→20:52)
[2019-06-19] MEDS ORDERED: MIDAZOLAM 2 MG/2 ML VIAL ONE (09:36)
[2019-06-19] MEDS ORDERED: PROPOFOL 10 MG/ML 20 ML VIAL IV ONE (09:36)
[2019-06-19] MEDS ORDERED: SODIUM CHLORIDE 0.9% 500 ML 500 ML IV ONE ×2 (09:44)
[2019-06-19] MEDS ORDERED: SODIUM POLYSTYRENE SULFONATE 15 GM/60 ML BOTTLE PO STA (10:26)
[2019-06-19 11:34] LABS: Glucose,Whole Blood 197 mg/dL (75-99)
--- NOTE | 2019-06-19 12:21 | P.PN ---
Subjective Patient was admitted for atrial fibrillation with rapid ventricular rate his amiodarone dose was increased. Patient heart rate is still in is around 110- 120. Patient respiratory status improved clinically feeling much better IV Lasix was discontinued. Can you to hold off on lisinopril and Aldactone. Serum creatinine improved from 1.8-1.5 with IV Lasix. 06/18/2019 patient heart rate remains high patient is being continued on amiodarone and being constipated for cardioversion COURTNEY on Thursday. 06/19/2019 Patient was quite lethargic earlier today before cardioversion did well after cardioversion patient converted to sinus rhythm I wanted to start him on lisinopril but patient has worsening renal function creatinine going up to 1.68 we'll recheck it tomorrow. Patient's potassium went up to 5.7. We'll give him a dose of Kayexalate Constitutional: Denied any fatigue denied any fever. Cardio vascular: denied any chest pain, palpitations Gastrointestinal denied any nausea vomiting Pulmonary: Denied any shortness of breath cough Neurologic denied any new focal deficits All inpatient medications were reviewed and appropriate changes in these medications as dictated in the interval history and assessment and plan. Objective - Vital Signs Vital signs: Vital Signs Temp 98 F 06/19/19 10:10 Pulse 66 06/19/19 10:45 Resp 16 06/19/19 10:45 BP 120/68 06/19/19 10:45 Pulse Ox 97 06/19/19 10:45 Intake & Output 06/18/19 06/19/19 06/19/19 18:59 06:59 18:59 Intake Total 462 222 50 Output Total 800 Balance -338 222 50 Weight 112.3 kg Intake: IV 50 Oral 462 222 Output: Urine 800 Other: # Voids 1 2 0 - Exam PHYSICAL EXAMINATION: GENERAL: The patient is alert and oriented x3, not in any acute distress. Well developed, well nourished. HEENT: Pupils are round and equally reacting to light. EOMI. No scleral icterus. No conjunctival pallor. Normocephalic, atraumatic. No pharyngeal erythema. No thyromegaly. CARDIOVASCULAR: S1 and S2 present. No murmurs, rubs, or gallops. Patient is tachycardic PULMONARY: Chest is clear to auscultation, no wheezing or crackles. ABDOMEN: Soft, nontender, nondistended, normoactive bowel sounds. No palpable organomegaly. MUSCULOSKELETAL: No joint swelling or deformity. EXTREMITIES: No cyanosis, clubbing, or pedal edema. NEUROLOGICAL: Gross neurological examination did not reveal any focal deficits. SKIN: No rashes. - Labs CBC & Chem 7: 06/19/19 06:09 06/19/19 06:09 Labs: Abnormal Lab Results - Last 24 Hours (Table) 06/18/19 06/18/19 06/19/19 Range/Units 17:00 20:44 06:09 WBC 13.5 H (3.8-10.6) k/uL MCV 103.1 H (80.0-100.0) fL Potassium (3.5-5.1) mmol/L BUN (9-20) mg/dL Creatinine (0.66-1.25) mg/dL Glucose (74-99) mg/dL POC Glucose (mg/dL) 119 H 141 H (75-99) mg/dL 06/19/19 06/19/19 06/19/19 Range/Units 06:09 06:22 11:33 WBC (3.8-10.6) k/uL MCV (80.0-100.0) fL Potassium 5.7 H (3.5-5.1) mmol/L BUN 38 H (9-20) mg/dL Creatinine 1.68 H (0.66-1.25) mg/dL Glucose 155 H (74-99) mg/dL POC Glucose (mg/dL) 188 H 197 H (75-99) mg/dL Assessment and Plan Plan: -Chest pain, rule out probably related to atrial fibrillation. Patient is on amiodarone metoprolol and Eliquis, patient converted to sinus rhythm after cardioversion -Congestive heart failure chronic systolic dysfunction with mild acute exacerbation improved with IV Lasix patient is off Lasix now. Repeat basic met abolic profile tomorrow, patient is bit hyperkalemic and worsening renal function Did was ordered -Acute renal failure secondary to prerenal azotemia from congestive heart failure exacerbation improved with IV Lasix repeat basic metabolic profile tomorrow we'll order a chest x-ray make sure patient is not going into heart failure again. -Atrial fibrillation with rapid ventricular rate atrial fibrillation may be contributing to his chest pain. Improved now chest pain resolved now patient is sinus rhythm now -Elevated blood sugars patient's previous hemoglobin A1c 6.8 is diabetic, dietary counseling wasprovided. -Hypertension: Presently hypotensive -Hyperkalemia secondary to renal failure, lisinopril and Aldactone.
--- NOTE | 2019-06-19 12:38 | P.PN ---
Subjective 68-year-old male patient with severe cardio myopathy with dilated RV secondary to alcohol use He also has a history of atrial fibrillation status post electrical cardioversion He came back on oral amiodarone with atrial tachycardia with RVR His amiodarone dose was increased and he is been on oral amiodarone loading, 1200 mg by mouth daily for the last several days My original plan was to cardiovert him tomorrow on Thursday However I was called by the nurse saying that the patient was extremely short of breath even at rest His heart rates have been uncontrolled and steadily climbing. He is in 2-1 atrial tachycardia despite amiodarone and beta blockers He denies any chest discomfort but he is visibly short of breath at rest and very uncomfortable sitting in a chair Blood pressure 120/68 mmHg pulse rate in the 60s afebrile Breath sounds are reduced bilaterally no rhonchi no crackles Heart sounds are tachycardic Central obesity is noted abdomen was soft Extremities no warm no edema Impression symptomatic atrial tachycardia with 2-1 AV block with RVR on oral amiodarone Severe cardio myopathy, alcohol-related Congestive heart failure class II Potassium 5.7 BUN 38 creatinine 1.68, on heart failure medications, spironolactone and lisinopril on hold Continues Apixaban 5 mg twice daily Suggest Urgent electrical cardioversion today I spoke to the anesthesiologist on-call I discussed this with the patient and he is agreeable to plan Objective - Vital Signs Vital signs: Vital Signs Temp 98 F 06/19/19 10:10 Pulse 66 06/19/19 10:45 Resp 16 06/19/19 10:45 BP 120/68 06/19/19 10:45 Pulse Ox 97 06/19/19 10:45 Intake & Output 06/18/19 06/19/19 06/19/19 18:59 06:59 18:59 Intake Total 462 222 50 Output Total 800 Balance -338 222 50 Weight 112.3 kg Intake: IV 50 Oral 462 222 Output: Urine 800 Other: # Voids 1 2 0 - Labs CBC & Chem 7: 06/19/19 06:09 06/19/19 06:09 Labs: Abnormal Lab Results - Last 24 Hours (Table) 06/18/19 06/18/19 06/19/19 Range/Units 17:00 20:44 06:09 WBC 13.5 H (3.8-10.6) k/uL MCV 103.1 H (80.0-100.0) fL Potassium (3.5-5.1) mmol/L BUN (9-20) mg/dL Creatinine (0.66-1.25) mg/dL Glucose (74-99) mg/dL POC Glucose (mg/dL) 119 H 141 H (75-99) mg/dL 06/19/19 06/19/19 06/19/19 Range/Units 06:09 06:22 11:33 WBC (3.8-10.6) k/uL MCV (80.0-100.0) fL Potassium 5.7 H (3.5-5.1) mmol/L BUN 38 H (9-20) mg/dL Creatinine 1.68 H (0.66-1.25) mg/dL Glucose 155 H (74-99) mg/dL POC Glucose (mg/dL) 188 H 197 H (75-99) mg/dL
--- NOTE | 2019-06-19 12:39 | P.PCN ---
Preoperative Diagnosis: Diagnosis Atrial tachycardia with RVR, symptomatic despite beta blockers and amiodarone loading Shortness of breath Procedure Under anesthesia a single biphasic shock, 360 J, AP configuration to sinus rhythm Plan Twelve-lead ECG Continue oral amiodarone 400 mg by mouth daily for a few days and then reduce to 4 mg twice a day for 2 weeks and then formula grams daily thereafter line recheck BMP and magnesium tomorrow Reassume heart failure medications once again if renal function is improved tomorrow
--- NOTE | 2019-06-19 14:17 | XR ---
EXAMINATION TYPE: XR chest 1V DATE OF EXAM: 06/19/2019 HISTORY: chf. REFERENCE: Previous study dated 06/15/2019. FINDINGS: Heart is mildly enlarged. Vascular congestion and pulmonary edema have improved. Pleural sp aces are clear. IMPRESSION: IMPROVING CHANGES OF PULMONARY EDEMA.
[2019-06-19 16:31] LABS: Glucose,Whole Blood 165 mg/dL (75-99)
[2019-06-19] MEDS ORDERED: ONDANSETRON 4 MG/2 ML VIAL IVP PRN (17:09)
[2019-06-19 20:47] LABS: Glucose,Whole Blood 161 mg/dL (75-99)
[2019-06-19] MEDS: ZOLPIDEM 5 MG TAB PO PRN (20:52)
[2019-06-20 06:29] LABS: Glucose,Whole Blood 131 mg/dL (75-99)
[2019-06-20] MEDS: INSULIN ASPART (NovoLOG) 100 UNIT/ML VIAL SQ SCH ×4 (06:44→21:03)
[2019-06-20 06:56] LABS: HCT 47.8 % (39.0-53.0); HGB 15.6 gm/dL (13.0-17.5); MCH 32.9 pg (25.0-35.0); MCHC 32.6 g/dL (31.0-37.0); MCV 101.2 fL (80.0-100.0); Mean Platelet Volume 7.9; Platelet Count 320 k/uL (150-450); RBC 4.73 m/uL (4.30-5.90); RDW 12.8 % (11.5-15.5); WBC 11.5 k/uL (3.8-10.6)
[2019-06-20 07:09] LABS: Calcium 9.5 mg/dL (8.4-10.2); Potassium 5.9 mmol/L (3.5-5.1)
[2019-06-20] MEDS: METOPROLOL SUCCINATE (ER) 100 MG TAB.ER.24H PO SCH (08:11)
[2019-06-20] MEDS: AMIODARONE 200 MG TAB PO SCH ×3 (08:11→20:55)
[2019-06-20] MEDS: APIXABAN 5 MG TAB PO SCH ×2 (08:11→20:55)
[2019-06-20] MEDS ORDERED: SODIUM POLYSTYRENE SULFONATE 15 GM/60 ML BOTTLE PO STA (10:16)
[2019-06-20] MEDS: FUROSEMIDE 10 MG/ML 4 ML VIAL IV SCH ×2 (10:26→21:03)
--- NOTE | 2019-06-20 10:50 | P.PN ---
Subjective Progress Note Date: 06/20/19 Principal diagnosis: Paroxysmal atrial fibrillation This is a pleasant 68-year-old gentleman with paroxysmal atrial fibrillation was admitted to the hospital with Venancio aragon and he was quite symptomatic with it. He underwent a cardioversion yesterday. On follow-up with him today, he is feeling overall better. He is asymptomatic at this point. He is on oral anticoagulation. Objective - Vital Signs Vital signs: Vital Signs Temp 97.9 F 06/20/19 08:00 Pulse 65 06/20/19 08:00 Resp 16 06/20/19 08:00 BP 103/69 06/20/19 08:00 Pulse Ox 96 06/20/19 08:00 Intake & Output 06/19/19 06/20/19 06/20/19 18:59 06:59 18:59 Intake Total 50 340 Output Total 225 300 Balance -175 -300 340 Weight 111.9 kg Intake: IV 50 Oral 340 Output: Urine 225 300 Other: Voiding Method Toilet # Voids 0 1 1 - Constitutional General appearance: Present: no acute distress - Respiratory Respiratory: bilateral: CTA - Cardiovascular Rhythm: regular Heart sounds: normal: S1, S2 - Labs CBC & Chem 7: 06/20/19 06:01 06/20/19 06:01 Labs: Abnormal Lab Results - Last 24 Hours (Table) 06/19/19 06/19/19 06/19/19 Range/Units 11:33 16:29 20:46 WBC (3.8-10.6) k/uL MCV (80.0-100.0) fL Potassium (3.5-5.1) mmol/L BUN (9-20) mg/dL Creatinine (0.66-1.25) mg/dL Glucose (74-99) mg/dL POC Glucose (mg/dL) 197 H 165 H 161 H (75-99) mg/dL 06/20/19 06/20/19 06/20/19 Range/Units 06:01 06:01 06:28 WBC 11.5 H (3.8-10.6) k/uL MCV 101.2 H (80.0-100.0) fL Potassium 5.9 H (3.5-5.1) mmol/L BUN 48 H (9-20) mg/dL Creatinine 1.93 H (0.66-1.25) mg/dL Glucose 112 H (74-99) mg/dL POC Glucose (mg/dL) 131 H (75-99) mg/dL Assessment and Plan Assessment: Assessment #1 paroxysmal atrial fibrillation Plan #1 continue the current medical regimen #2 follow-up with the patient #3 possible discharge in the next 24 hours
[2019-06-20 11:37] LABS: Glucose,Whole Blood 137 mg/dL (75-99)
--- NOTE | 2019-06-20 11:46 | P.PN ---
Subjective Patient was admitted for atrial fibrillation with rapid ventricular rate his amiodarone dose was increased. Patient heart rate is still in is around 110- 120. Patient respiratory status improved clinically feeling much better IV Lasix was discontinued. Can you to hold off on lisinopril and Aldactone. Serum creatinine improved from 1.8-1.5 with IV Lasix. 06/18/2019 patient heart rate remains high patient is being continued on amiodarone and being constipated for cardioversion COURTNEY on Thursday. 06/19/2019 Patient was quite lethargic earlier today before cardioversion did well after cardioversion patient converted to sinus rhythm I wanted to start him on lisinopril but patient has worsening renal function creatinine going up to 1.68 we'll recheck it tomorrow. Patient's potassium went up to 5.7. We'll give him a dose of Kayexalate 06/17/2019 Patient is doing well regarding A. fib perspective but his serum potassium went up patient will be started on capsulate again patient creatinine continued to worse and I believe this is secondary to heart failure patient will be started on IV Lasix today will monitor his kidney function tomorrow depending on his overall clinical condition overall improvement in his kidney function and c linical improvement to the patient regarding discharge will be made tomorrow. Constitutional: Denied any fatigue denied any fever. Cardio vascular: denied any chest pain, palpitations Gastrointestinal denied any nausea vomiting Pulmonary: Denied any shortness of breath cough Neurologic denied any new focal deficits All inpatient medications were reviewed and appropriate changes in these medications as dictated in the interval history and assessment and plan. Objective - Vital Signs Vital signs: Vital Signs Temp 97.9 F 06/20/19 08:00 Pulse 65 06/20/19 08:00 Resp 16 06/20/19 08:00 BP 103/69 06/20/19 08:00 Pulse Ox 96 06/20/19 08:00 Intake & Output 06/19/19 06/20/19 06/20/19 18:59 06:59 18:59 Intake Total 50 340 Output Total 225 300 Balance -175 -300 340 Weight 111.9 kg Intake: IV 50 Oral 340 Output: Urine 225 300 Other: Voiding Method Toilet # Voids 0 1 1 - Exam PHYSICAL EXAMINATION: GENERAL: The patient is alert and oriented x3, not in any acute distress. Well developed, well nourished. HEENT: Pupils are round and equally reacting to light. EOMI. No scleral icterus. No conjunctival pallor. Normocephalic, atraumatic. No pharyngeal erythema. No thyromegaly. CARDIOVASCULAR: S1 and S2 present. No murmurs, rubs, or gallops. Patient is tachycardic PULMONARY: Chest is clear to auscultation, no wheezing or crackles. ABDOMEN: Soft, nontender, nondistended, normoactive bowel sounds. No palpable organomegaly. MUSCULOSKELETAL: No joint swelling or deformity. EXTREMITIES: No cyanosis, clubbing, or pedal edema. NEUROLOGICAL: Gross neurological examination did not reveal any focal deficits. SKIN: No rashes. - Labs CBC & Chem 7: 06/20/19 06:01 06/20/19 06:01 Labs: Abnormal Lab Results - Last 24 Hours (Table) 06/19/19 06/19/19 06/20/19 Range/Units 16:29 20:46 06:01 WBC 11.5 H (3.8-10.6) k/uL MCV 101.2 H (80.0-100.0) fL Potassium (3.5-5.1) mmol/L BUN (9-20) mg/dL Creatinine (0.66-1.25) mg/dL Glucose (74-99) mg/dL POC Glucose (mg/dL) 165 H 161 H (75-99) mg/dL 06/20/19 06/20/19 06/20/19 Range/Units 06:01 06:28 11:24 WBC (3.8-10.6) k/uL MCV (80.0-100.0) fL Potassium 5.9 H (3.5-5.1) mmol/L BUN 48 H (9-20) mg/dL Creatinine 1.93 H (0.66-1.25) mg/dL Glucose 112 H (74-99) mg/dL POC Glucose (mg/dL) 131 H 137 H (75-99) mg/dL Assessment and Plan Plan: -Chest pain, rule out probably related to atrial fibrillation. Patient is on amiodarone metoprolol and Eliquis, patient converted to sinus rhythm after cardioversion -Congestive heart failure chronic systolic dysfunction with mild acute exacerbation improved with IV Lasix, patient will be resumed on Lasix patient creatinine continued to worsen and this is secondary to peripheral azotemia from CHF -Acute renal failure secondary to prerenal azotemia from congestive heart failure exacerbation improved with IV Lasix repeat basic metabolic profile tomorrow we'll order a chest x-ray make sure patient is not going into heart failure again. -Atrial fibrillation with rapid ventricular rate atrial fibrillation may be contributing to his chest pain. Improved now chest pain resolved now patient is sinus rhythm now -Elevated blood sugars patient's previous hemoglobin A1c 6.8 is diabetic, dietary counseling wasprovided. -Hypertension: Presently hypotensive -Hyperkalemia secondary to renal failure, lisinopril and Aldactone.
[2019-06-20 16:59] LABS: Glucose,Whole Blood 148 mg/dL (75-99)
[2019-06-20 20:49] LABS: Glucose,Whole Blood 142 mg/dL (75-99)
[2019-06-20] MEDS: ZOLPIDEM 5 MG TAB PO PRN (20:55)
[2019-06-21 05:56] LABS: Glucose,Whole Blood 112 mg/dL (75-99)
[2019-06-21] MEDS: INSULIN ASPART (NovoLOG) 100 UNIT/ML VIAL SQ SCH ×2 (06:20→12:39)
[2019-06-21 06:50] LABS: Calcium 8.8 mg/dL (8.4-10.2); Potassium 4.3 mmol/L (3.5-5.1)
[2019-06-21] MEDS: METOPROLOL SUCCINATE (ER) 100 MG TAB.ER.24H PO SCH (07:42)
[2019-06-21] MEDS: AMIODARONE 200 MG TAB PO SCH (07:42)
[2019-06-21] MEDS: APIXABAN 5 MG TAB PO SCH (07:42)
[2019-06-21] MEDS: FUROSEMIDE 10 MG/ML 4 ML VIAL IV SCH (09:36)
[2019-06-21 11:54] VITALS: BMI 33.4
[2019-06-21 11:55] LABS: Glucose,Whole Blood 102 mg/dL (75-99)
--- NOTE | 2019-06-21 11:55 | P.PN ---
Subjective Progress Note Date: 06/21/19 Principal diagnosis: Paroxysmal atrial fibrillation This is a pleasant 68-year-old gentleman with paroxysmal atrial fibrillation was admitted to the hospital with Venancio aragon and he was quite symptomatic with it. He underwent a cardioversion yesterday. On follow-up with him today, he is feeling overall better. He is asymptomatic at this point. He is on oral anticoagulation. He is going to be discharged home later on today. Objective - Vital Signs Vital signs: Vital Signs Temp 97.7 F 06/21/19 07:41 Pulse 70 06/21/19 07:41 Resp 18 06/21/19 07:41 BP 121/79 06/21/19 07:41 Pulse Ox 96 06/21/19 07:41 Intake & Output 06/20/19 06/21/19 06/21/19 18:59 06:59 18:59 Intake Total 820 180 Output Total 600 Balance 820 -600 180 Weight 111.7 kg 111.7 kg Intake: Oral 820 180 Output: Urine 600 Other: Voiding Method Toilet # Voids 1 - Constitutional General appearance: Present: no acute distress - Respiratory Respiratory: bilateral: CTA - Cardiovascular Rhythm: regular Heart sounds: normal: S1, S2 - Labs CBC & Chem 7: 06/20/19 06:01 06/21/19 06:01 Labs: Abnormal Lab Results - Last 24 Hours (Table) 06/20/19 06/20/19 06/21/19 Range/Units 16:55 20:47 05:55 Carbon Dioxide (22-30) mmol/L BUN (9-20) mg/dL Creatinine (0.66-1.25) mg/dL Glucose (74-99) mg/dL POC Glucose (mg/dL) 148 H 142 H 112 H (75-99) mg/dL 06/21/19 Range/Units 06:01 Carbon Dioxide 31 H (22-30) mmol/L BUN 45 H (9-20) mg/dL Creatinine 1.68 H (0.66-1.25) mg/dL Glucose 113 H (74-99) mg/dL POC Glucose (mg/dL) (75-99) mg/dL Assessment and Plan Assessment: Assessment #1 paroxysmal atrial fibrillation Plan #1 continue the current medical regimen #2 follow-up with the patient #3 discharge home later on today
[2019-06-21 14:39] VITALS: BP 112/74; PULSE 63; RESP 16; TEMP 98.7
[2019-06-21] MEDS ORDERED: FUROSEMIDE 40 MG TAB PO SCH (16:00)
--- NOTE | 2019-06-21 16:16 | P.DS ---
Providers Date of admission: 06/15/19 12:28 Expected date of discharge: 06/21/19 Attending physician: Annetta Baumann Consults: 06/15/19 12:51 Consult Physician Stat Consulting Provider: Gil Chapa Consult Reason/Comments: A. fib with RVR, unstable angina Do you want consulting provider notified?: Already Contacted Primary care physician: Bridgett Zacarias Hospital Course: Final diagnosis Chest pain, rule out probably related atrial fibrillation And is normal sinus rhythm Congestive heart failure chronic systolic dysfunction with mild acute exacerbation Acute renal failure secondary to prerenal azotemia from congestive heart failure exacerbation Atrial fibrillation with rapid ventricular rate: Underwent cardioversion and is in sinus rhythm Elevated blood sugars: Current hemoglobin A1C is 6.8 Hypertension Hyperkalemia secondary to renal failure, lisinopril, and Aldactone Discharge disposition Patient is being discharged in a stable condition with guarded prognosis to home and patient will follow-up with cardiology this week. History of present illness This is a 68-year-old male who was admitted for atrial fibrillation with RVR and underwent a cardioversion this week and and is currently in sinus rhythm. Cardiology was following closely. Patient's amiodarone dose was adjusted and increased. Patient was tolerating well. Patient denies any shortness of breath , chest pain, or palpitations at this time. Patient denies any nausea or vomiting and remains afebrile. Patient will go home on a low-dose of lisinopril 2.5 mg daily as well as Lasix 40 mg twice a day. Patient is looking forward to going home today. We will hold off the Aldactone at home, recheck a BMP in 2 days, and follow-up with cardiology this week. Patient is currently stable with much improvement. Patient also had an elevated potassium level and was treated. Current potassium is 4.3. On exam vital signs are stable. Blood pressure is 112/74, pulse is 63, respirations are 16, temp is 98.7F, oxygen saturation is 99% on room air. Cardio S1 and S2 are normal. Respiratory system is clear to auscultation with no wheezing noted. Abdomen is soft and non-tender. Nervous system shows no focal deficits and gait is steady. Please refer to medication reconciliation sheet for a list of medications. Patient Condition at Discharge: Serious Plan - Discharge Summary Discharge Rx Participant: No New Discharge Prescriptions: New Amiodarone [Cordarone] 400 mg PO TID #180 tab Zolpidem [Ambien] 5 mg PO HS PRN #10 tab PRN Reason: insomnia Lisinopril [Zestril] 2.5 mg PO DAILY #30 tab Continue Apixaban [Eliquis] 5 mg PO BID #60 tab Furosemide [Lasix] 40 mg PO BID@0900,1600 #60 tab Metoprolol Succinate (ER) [Toprol XL] 100 mg PO DAILY #30 tab.er.24h Spironolactone [Aldactone] 50 mg PO DAILY #30 tab Discontinued Lisinopril [Zestril] 10 mg PO DAILY #30 tab Amiodarone [Cordarone] 200 mg PO TID Discharge Medication List Apixaban [Eliquis] 5 mg PO BID #60 tab 06/04/19 [Rx] Furosemide [Lasix] 40 mg PO BID@0900,1600 #60 tab 06/04/19 [Rx] Metoprolol Succinate (ER) [Toprol XL] 100 mg PO DAILY #30 tab.er.24h 06/04/19 [Rx] Amiodarone [Cordarone] 400 mg PO TID #180 tab 06/21/19 [Rx] Lisinopril [Zestril] 2.5 mg PO DAILY #30 tab 06/21/19 [Rx] Spironolactone [Aldactone] 50 mg PO DAILY #30 tab 06/21/19 [Rx] Zolpidem [Ambien] 5 mg PO HS PRN #10 tab 06/21/19 [Rx] Follow up Appointment(s)/Referral(s): Gil Chapa MD [STAFF PHYSICIAN] - 06/29/19 2:15 pm (Follow-up with Dr. Chapa/Arline Anderson/Roxane Arellano) Bridgett Zacarias DO [Primary Care Provider] - 06/23/19 3:20 pm (Office closed on Thursday. Will call for an appointment Thursday.) Ambulatory/Diagnostic Orders: Basic Metabolic Panel [LAB.AMB] Time Frame: 2 Days, Location: None Selected Patient Instructions/Handouts: Atrial Flutter (DC), Pulmonary Edema (DC), Cardioversion (DC) Activity/Diet/Wound Care/Special Instructions: Activity Limited until follow-up Continue current diet Follow-up with primary care provider this week Follow-up with cardiology as instructed Discharge Disposition: HOME SELF-CARE
== END 2019-06-21 16:12 | disposition home or self-care (01) | DRG 308 ==
LOC: EC 11:09 → 3SCARD 12:28
PROVIDERS: ADMIT Hospitalist; ATTEND Hospitalist
PROC: 5A2204Z Restoration of Cardiac Rhythm, Single (ICD-10-PCS; principal; 2019-06-19 09:15)
DX: I48.0 Paroxysmal atrial fibrillation (principal); I50.23 Acute on chronic systolic (congestive) heart failure; N17.9 Acute kidney failure, unspecified; I20.0 Unstable angina; I11.0 Hypertensive heart disease with heart failure; I42.6 Alcoholic cardiomyopathy; E11.65 Type 2 diabetes mellitus with hyperglycemia; I95.9 Hypotension, unspecified; E87.5 Hyperkalemia; I44.1 Atrioventricular block, second degree; I47.1 Supraventricular tachycardia; K76.9 Liver disease, unspecified; E78.5 Hyperlipidemia, unspecified; M17.0 Bilateral primary osteoarthritis of knee; K59.00 Constipation, unspecified; F10.21 Alcohol dependence, in remission; E66.9 Obesity, unspecified; Z68.33 Body mass index [BMI] 33.0-33.9, adult; T46.4X5A Adverse effect of angiotensin-converting-enzyme inhibitors, initial encounter; T50.0X5A Adverse effect of mineralocorticoids and their antagonists, initial encounter; Z79.01 Long term (current) use of anticoagulants; Z79.899 Other long term (current) drug therapy; Z71.3 Dietary counseling and surveillance; Z87.19 Personal history of other diseases of the digestive system; Z98.890 Other specified postprocedural states; Z88.5 Allergy status to narcotic agent; Z82.49 Family history of ischemic heart disease and other diseases of the circulatory system; Z80.0 Family history of malignant neoplasm of digestive organs
CPT/HCPCS: 36415; 71045; 80048; 80053; 82550; 82553; 83735; 83880; 84484; 85025; 85027; 85610; 85730; 92960; 93005; 96361; 96374; 96375; 99285

== ENCOUNTER 2019-08-23 11:31 | Day surgery (SDC) | payer MEDICARE ==
[~2019-08-23 11:31] MED LIST: LACTATED RINGERS 1,000 ML IV SCH; SODIUM CHLORIDE 0.9% 1,000 ML IV SCH
[2019-08-23 12:50] LABS: Basophils # (A) 0.1 k/uL (0-0.2); Basophils % (A) 1 %; Eosinophils # (A) 0.1 k/uL (0-0.7); Eosinophils % (A) 1 %; HCT 46.6 % (39.0-53.0); HGB 15.4 gm/dL (13.0-17.5); Lymphocytes # (A) 1.9 k/uL (1.0-4.8); Lymphocytes % (A) 18 %; MCH 31.7 pg (25.0-35.0); Mean Platelet Volume 7.4; Monocytes # (A) 0.7 k/uL (0-1.0); Monocytes % (A) 7 %; Neutrophils # (A) 7.6 k/uL (1.3-7.7); Neutrophils % (A) 71 %; Platelet Count 306 k/uL (150-450); RBC 4.84 m/uL (4.30-5.90); RDW 13.5 % (11.5-15.5); WBC 10.7 k/uL (3.8-10.6)
[2019-08-23 12:55] LABS: MCV 96.2 fL (80.0-100.0)
--- NOTE | 2019-08-23 14:41 | P.HPCAR ---
History of Present Illness This is Arline Anderson PA-C dictating an H&P on this patient The patient was interviewed and examined by me as well as by Dr. Chapa Case discussed with Dr. Chapa and he agrees with the plan of care IMPRESSION / ASSESSMENT: Atrial tachycardia with RVR, failed antiarrhythmic therapy with amiodarone Paroxysmal atrial fibrillation Severe nonischemic cardiomyopathy, most recent echo showing EF less than 20% Class II CHF Diabetes Hypertension Dyslipidemia PLAN: Proceed with atrial tachycardia/atrial fibrillation ablation, patient is stable to proceed with the procedure He is appropriately anticoagulated with eliquis HPI Patient is a 68-year-old male with a past medical history significant for nonischemic cardiomyopathy, paroxysmal atrial fibrillation, atrial tachycardia with RVR, diabetes, hypertension, and dyslipidemia who presents for evaluation and management of atrial tachycardia and atrial fibrillation. Patient underwent electrical cardioversion and was placed on amiodarone. Despite this treatment, he remained in atrial tachycardia with RVR. Most recent echocardiogram showed severely reduced systolic function, EF less than 20%. Upon presentation today heis in atrial tachycardia. Patient seen and examined resting in bed. States he had an episode of palpitations and dizziness over the weekend when he "overdid it". He does have some orthopnea, denies any worsening orthopnea. Sleeps with a wedge under his bed and one pillow. He has some shortness of exertion. Denies any worsening shortness of breath. Denies any chest pain or palpitations currently. Denies any recent infections, fevers chills or cough. ROS: No fevers, chills or rigors, no cough, phlegm or expectoration, no nausea, vomiting or diarrhea, no hematuria, dysuria, no musculoskeletal complaints, no strokes or seizures, no skin lesions. EXAMINATION: Temperature 97.5F, pulse 120, respirations 18, blood pressure 131/98, oxygen saturation 98% on room air Patient seen and examined resting comfortably in bed, in no acute distress Lungs clear to auscultation bilaterally, no crackles, wheezing or rhonchi Heart is tachycardic but regular, no murmurs noted No elevated JVD No lower extremity edema REVIEW OF LABS, ECG & MEDICAL DATA Telemetry reveals atrial tachycardia with RVR, rate 120 CBC 10.7, hemoglobin 15.4, platelets 306, potassium 4.6, BUN 25, creatinine 1.5, TSH 3.03 Physical Exam Vitals: Vital Signs Temp Pulse Resp BP Pulse Ox 08/23/19 12:00 97.5 F L 120 H 18 131/98 98 Past Medical History Past Medical History: Atrial Fibrillation, Heart Failure, Diabetes Mellitus, GI Bleed, Hypertension, Liver Disease, Osteoarthritis (OA) Additional Past Medical History / Comment(s): NIDDM type II, recent liver ultrasound dt elevated enzymes, rectal bleed with blood transfusion- See Dr Chapa's H&P History of Any Multi-Drug Resistant Organisms: None Reported Past Surgical History: Orthopedic Surgery Additional Past Surgical History / Comment(s): 06/03/19 COURTNEY/cardioversion x 2, bilateral carpal tunnel releases, colonoscopy. Past Anesthesia/Blood Transfusion Reactions: No Reported Reaction Smoking Status: Never smoker - Past Family History Father Family Medical History: Cancer, Coronary Artery Disease (CAD), Myocardial Infarction (IA) Additional Family Medical History / Comment(s): colon cancer, 2 MIs Mother Family Medical History: No Reported History Physical Examination Vital Signs Temp Pulse Resp BP Pulse Ox 08/23/19 12:00 97.5 F L 120 H 18 131/98 98 Results 08/23/19 12:20 CBC 08/23/19 Range/Units 12:20 WBC 10.7 H (3.8-10.6) k/uL RBC 4.84 (4.30-5.90) m/uL Hgb 15.4 (13.0-17.5) gm/dL Hct 46.6 (39.0-53.0) % Plt Count 306 (150-450) k/uL Current Medications Generic Name Dose Route Start Last Admin Trade Name Freq PRN Reason Stop Dose Admin Sodium Chloride 1,000 mls @ 20 mls/hr 08/23/19 07:21 Saline 0.9% IV .Q24H KAITLIN Lactated Ringer's 1,000 mls @ 20 mls/hr 08/23/19 07:21 Lactated Ringers IV .Q24H KAITLIN 08/23/19 12:20
[2019-08-23] MEDS ORDERED: PROTAMINE SULFATE 10 MG/ML 5 ML VIAL IV ONE (14:42)
[2019-08-23] MEDS ORDERED: HEPARIN SODIUM,PORCINE 10,000 UNIT/ML 1 ML VIAL ONE (14:42)
[2019-08-23] MEDS ORDERED: fentaNYL (PF) 50 MCG/ML 2 ML AMP ONE (14:42)
[2019-08-23] MEDS ORDERED: PROPOFOL 10 MG/ML 20 ML VIAL IV ONE (14:42)
[2019-08-23] MEDS ORDERED: MIDAZOLAM 2 MG/2 ML VIAL ONE (14:42)
[2019-08-23] MEDS ORDERED: SUCCINYLCHOLINE CHLORIDE 100 MG/5 ML SYR IV ONE (14:42)
[2019-08-23] MEDS ORDERED: FUROSEMIDE 10 MG/ML 2 ML VIAL ONE (14:42)
[2019-08-23] MEDS ORDERED: PHENYLEPHRINE-0.9% NACL SYG 1 MG/10 ML SYRINGE ONE (14:42)
[2019-08-23] MEDS ORDERED: ROCURONIUM BROMIDE 10 MG/ML 10 ML VIAL IV ONE (14:42)
[2019-08-23] MEDS ORDERED: LIDOCAINE 1% INJ 10MG/ML (20 ML MDV) SQ ONE (15:44)
[2019-08-23] MEDS ORDERED: HEPARIN SOD,PORK IN 0.45% NACL 25,000 UNIT in 0.45% NACL 1 250ML.BAG IV ONE (15:54)
[2019-08-23] MEDS ORDERED: HEPARIN SODIUM (1,000 UNIT/ML) 1,000 UNIT in SODIUM CHLORIDE 0.9% 1,000 ML IRRIGATION ONE (16:00)
[2019-08-23] MEDS ORDERED: ACETAMINOPHEN TAB 325 MG TAB PO PRN (17:20)
[2019-08-23] MEDS ORDERED: IOPAMIDOL-250 100ML BTL IV ONE (19:01)
--- NOTE | 2019-08-23 19:08 | P.PCN ---
Preoperative Diagnosis: Diagnosis Atrial fibrillation, symptomatic, refractory to antiarrhythmic therapy Typical atrial flutter RVR, symptomatic Severe nonischemic cardiomyopathy Severe heart failure Gift Basket Packer: Dr. Chapa, assistant plant manager: Arline Anderson PA-C Result No left atrial appendage mass seen on intracardiac echo Successful pulmonary vein isolation of all veins using cryo-ablation Complete entrance block in all 4 veins confirmed No evidence for phrenic nerve injury 6 successful atrial flutter ablation with bidirectional block, isthmus conductio n time was 200 ms, widely split potentials along the line Esophageal deflection YES Procedure details Patient was brought to the EP lab in a fasting state. Written informed consent was obtained prior to the procedure. Procedure performed under general anesthesia After initial muscle relaxant use, muscle relaxants were not given thereafter in order to assess phrenic nerve during procedure. Patient prepped and draped as per protocol Full cryo-set up with standard preparation of the cryoablation tools done. Femoral Venous access obtained on the right and left groins Venous and arterial Sheaths placed. Diagnostic catheters for the high right atrium, phrenic nerve stimulation and pacing, His bundle, RV and coronary sinus placed Intracardiac echo catheter placed. Long sheath placed in the right atrium Left and right transseptal catheterization performed under intracardiac echo guidance. Intravenous heparin with aCT above 300 Later, catheter positioning and balloon positioning in the left atrium, under intracardiac echo guidance Diagnostic EP study Coronary sinus pacing and recording Baseline measurements Sinus cycle length 1115 ms, PA 200 ms, QRS 116 ms, QT 436 ms H 67 ms, HV 52 ms Tachycardia cycle length 280 ms Sinus node recovery time at 600 ms and 500 ms were 1256 and 1472 respectively, corrected sinus node recovery times were within normal limits Atrial pacing performed from the high right atrium and the coronary sinus AV node Wenckebach block at 360 ms Transseptal catheterization performed RA pressure 22/17/20 LA pressure 50/7/33 Transseptal catheterization performed with standard sheath. The cryoablation sheath was then placed with an over the wire exchange without any acute complications. All 4 pulmonary veins were isolated in the following sequence: Left superior followed by left inferior followed by right superior followed by right inferior The cryo-ablation balloon was placed at the os of each vein 1.5 mL of IV dye was injected to confirm an occluded vein Goal during cryoablation was to achieve complete occlusion of the pulmonary vein, achieve -30 degrees C at 30 seconds and achieve -40 degrees C at 60 seconds and a time to effect of less than 60-90 seconds, . If not the balloon was repositioned to obtain this result After completion of Cryoblation with durations from 180-240 seconds, entrance block was confirmed with the Attain circular catheter in a roving fashion around the antrum of the pulmonary veins Phrenic nerve pacing was performed from the SVC, right innominate vein area and diaphragm voltage was monitored. Diaphragmatic contractions were also monitored manually for strength of contraction. Parameter goals for each cryo freeze Complete occlusion of the appropriate vein -30 degrees C by 30 seconds -40 degrees C by 60 seconds Minimum between minus 40-55 degrees C Thaw time greater than 10 seconds Balloon visualized by intracardiac echo The esophagus was intubated. Esophageal Temperature monitoring with a CIRCA catheter formed. Esophageal deflection for hypothermia of the esophagus below 30 degrees C Left superior pulmonary vein Complete isolation, entrance block Left inferior pulmonary vein Complete isolation, entrance block Right superior pulmonary vein, during phrenic nerve pacing Complete isolation, entrance block, 2 minutes followed by 2 minutes on account of very low temperatures achieved Right inferior pulmonary vein, during phrenic nerve pacing Complete isolation, entrance block At the end of the procedure the Achieve catheter was once again used to check for entrance block Phrenic nerve stimulation was performed to confirm diaphragmatic stimulation the end of the procedure Cine fluoroscopy was performed at the very end of the procedure to confirm movement of both diaphragms with inspiration and expiration Atrial flutter ablation Patient came in in atrial tachycardia, tachycardia cycle length 280 ms 3-D electro anatomic mapping of the right atrium and entrainment mapping of the right atrial isthmus Caval tricuspid isthmus dependency of the atrial tachycardia confirmed RF ablation from the tricuspid annulus to the eustachian the station ridge resulted in termination of the tachycardia Thereafter bidirectional block with differential pacing proven Widely split potentials of greater than 150 ms along the line during pacing Non-capture along the line at high output At the end of the procedure the patient was extubated Heparin was reversed Venous sheaths were removed and hemostasis assured Procedures performed ([facility] - CRYO Ablation) Diagnostic EP study CS pacing and recording Left and right transseptal catheterization 3D mapping Intracardiac echocardiography Pulmonary vein isolation with transseptal and comprehensive EPS, 11505 Typical atrial flutter ablation
--- NOTE | 2019-08-23 19:11 | P.PRLE ---
RE: Shravan Gabriel Dear Dr. Leann Gabriel underwent successful atrial flutter ablation with successful termination of the arrhythmia He underwent cryoablation of the pulmonary veins with complete isolation of all pulmonary veins I would reduce the dose of amiodarone to 200 mg by mouth daily and hopefully later on he can cut down to 100 mg by mouth daily He will continue anticoagulation lifelong For now I would reduce the dose of metoprolol XL to 50 mrem by mouth daily and hopefully if he has no further episodes of atrial fibrillation I would switch to carvedilol and maximize heart failure medications Hopefully this results in improvement in his LV systolic function and heart failure status Thank you for entrusting me with the care of the patient Warm regards Sincerely Gil Chapa
[2019-08-23] MEDS ORDERED: ACETAMINOPHEN IV (For NPO) 1,000 MG in EMPTY BAG 1 BAG IVPB ONE (19:30)
[2019-08-23 20:32] VITALS: BMI 31.8
[2019-08-23] MEDS: APIXABAN 5 MG TAB PO SCH (20:44)
[2019-08-24 07:57] VITALS: RESP 18
--- NOTE | 2019-08-24 08:12 | P.DS ---
Providers Attending physician: Gil Chapa Primary care physician: [facility] Course: Patient is doing very well. He is lying comfortably in bed. No orthopnea PND no chest discomfort no dizziness lightheadedness. His sore throat On examination blood pressure 110/67 mmHg pulse rate in the 60s afebrile 98.2F normal respirations Breath sounds are clear no rhonchi no crackles Heart sounds S1 and S2 are soft no murmurs or gallops no rub Abdomen soft nontender Extremities warm no edema Groins have healed well no hematoma No edema Impression Severe cardio myopathy, nonischemic with a very dilated left ventricle and severe LV dysfunction less than 20-25% despite medical treatment LA pressure 50/7/33 despite medical treatment Successful atrial flutter ablation yesterday with confirmed bidirectional block Successful cryoablation of all 4 pulmonary veins 12-lead ECG today shows sinus rhythm normal ND incomplete left bundle branch block QRS width less than 120 ms Suggest Reduce the dose of amiodarone to 200 mg by mouth daily Reduced dose of metoprolol succinate 50 mg by mouth daily Continue other cardiac medications heart failure medications I would recommend a LifeVest for 3 months Intracardiac echo revealed severely dilated LV with severe LV dysfunction less than 25% once he was in sinus rhythm post ablation He has class III congestive heart failure with elevated left-sided pressures despite maximal medical treatment Suggest a LifeVest Discharge home later after that Patient Condition at Discharge: Stable Plan - Discharge Summary Discharge Rx Participant: Yes New Discharge Prescriptions: New Amiodarone [Cordarone] 200 mg PO DAILY #90 tab Metoprolol Succinate (ER) [Toprol XL] 50 mg PO DAILY #90 tab Discontinued Metoprolol Succinate (ER) [Toprol XL] 100 mg PO QAM Amiodarone [Cordarone] 200 mg PO BID No Action Apixaban [Eliquis] 5 mg PO BID #60 tab Furosemide [Lasix] 40 mg PO BID@0900,1600 #60 tab Lisinopril [Zestril] 2.5 mg PO 1600 Spironolactone [Aldactone] 12.5 mg PO QAM Discharge Medication List Apixaban [Eliquis] 5 mg PO BID #60 tab 06/04/19 [Rx] Furosemide [Lasix] 40 mg PO BID@0900,1600 #60 tab 06/04/19 [Rx] Lisinopril [Zestril] 2.5 mg PO 1600 08/17/19 [History] Spironolactone [Aldactone] 12.5 mg PO QAM 08/17/19 [History] Amiodarone [Cordarone] 200 mg PO DAILY #90 tab 08/23/19 [Rx] Metoprolol Succinate (ER) [Toprol XL] 50 mg PO DAILY #90 tab 08/23/19 [Rx] Follow up Appointment(s)/Referral(s): Gil Chapa MD [STAFF PHYSICIAN] - 1 Week (follow up with Dr. Chapa/Arline Anderson/Roxane Arellano in one to 2 weeks) Activity/Diet/Wound Care/Special Instructions: Post EP study - Ablation instructions 1. Keep access sites dry for 2 days. 2. No heavy lifting or straining for 2 days. 3. Avoid bending the hips repeatedly for 2 days. 4. You may go up and down stairs slowly Call if the following is noted 1. Bleeding, increasing swelling or pain at the access sites. 2. Increasing chest discomfort, especially upon taking a deep breath. 3. Increasing shortness of breath, at rest or with exertion. 4. Undue cough / phlegm 5. Difficulty or pain while swallowing. 6. Pain or change in color in the extremities. 7. Fever, chills, rigors. 8. Increasing headache or neurologic symptoms. 9. Dizziness, fainting, palpitations Decrease metoprolol to 50 mg daily, decrease amiodarone to 200 mg once a day, continue all other cardiac medications including anticoagulation with eliquis
[2019-08-24] MEDS: APIXABAN 5 MG TAB PO SCH (08:18)
[2019-08-24] MEDS ORDERED: METOPROLOL SUCCINATE (ER) 50 MG TAB.ER.24H PO SCH (09:00)
[2019-08-24] MEDS ORDERED: SPIRONOLACTONE 25 MG TAB PO SCH (09:00)
[2019-08-24] MEDS ORDERED: AMIODARONE 200 MG TAB PO SCH (09:00)
[2019-08-24] MEDS ORDERED: FUROSEMIDE 40 MG TAB PO SCH (09:00)
[2019-08-24] MEDS ORDERED: LISINOPRIL 2.5 MG TAB PO SCH (16:00)
[2019-08-24 16:14] VITALS: BP 109/75; PULSE 57; TEMP 99
== END 2019-08-24 17:22 | disposition home or self-care (01) ==
LOC: CATHEP 11:31 → 1SOBS 18:55 → CATHEP 08-24 17:22
PROVIDERS: ATTEND Internal Medicine Clinical Cardiac Electrophysiology
DX: I48.3 Typical atrial flutter (principal); I48.0 Paroxysmal atrial fibrillation; I42.8 Other cardiomyopathies; I11.0 Hypertensive heart disease with heart failure; I50.9 Heart failure, unspecified; E78.5 Hyperlipidemia, unspecified; E11.9 Type 2 diabetes mellitus without complications; K76.9 Liver disease, unspecified; F10.10 Alcohol abuse, uncomplicated; M19.90 Unspecified osteoarthritis, unspecified site; Z82.49 Family history of ischemic heart disease and other diseases of the circulatory system; Z80.0 Family history of malignant neoplasm of digestive organs; Z79.01 Long term (current) use of anticoagulants; Z79.899 Other long term (current) drug therapy; Z88.5 Allergy status to narcotic agent
CPT/HCPCS: 85347; 93662; 93613; 93656; 93657; 85025; C1769 ×4; C1894 ×2; C1730 ×2; C1759; C1893; C1733; C1732; J2001; J1644 ×2; Q9966

== ENCOUNTER → 2021-10-31 | Outpatient (CLI) | payer MEDICARE ==
--- NOTE | 2021-11-01 07:38 | CT ---
EXAMINATION TYPE: CT angio chest DATE OF EXAM: 10/31/2021 COMPARISON: CTA chest June 02, 2019 HISTORY: Thoracic aortic aneurysm w/out rupture. Pt reporting no issues CT DLP: 1296.30 mGycm. Automated Exposure Control for Dose Reduction was Utilized. CONTRAST: CTA scan of the thorax is performed without and with IV Contrast, patient injected with 80 mL of Isov ue 370, aneurysm protocol. . 3D reconstructed images are created on an independent workstation and re viewed. FINDINGS: LUNGS: The lungs currently are grossly clear, there is no concerning parenchymal mass or nodule ident ified. Mild bibasilar linear scarring and/or atelectasis There is no pleural effusion or pneumothora x seen. The tracheobronchial tree is patent. MEDIASTINUM: Noncontrast images show no suspicious hyperdense material to suggest intramural hematoma . Ascending aorta measures up to 4.7 cm and the aortic root coronal image 55 fairly stable from prior . There is aneurysm up to 4.1 cm adjacent to main pulmonary artery axial image 25. Normal three-vesse l origin from aortic arch. No aneurysm into the descending aorta. Persistent prominent main pulmonar y artery consistent with underlying pulmonary artery hypertension. There are no greater than 1 cm hil ar or mediastinal lymph nodes. No cardiomegaly or pericardial effusion is seen. Moderate coronary a rtery calcification redemonstrated. OTHER: Liver diffusely low dense consistent with diffuse fatty infiltration.. IMPRESSION: Ascending aortic aneurysm up to 4.7 cm at the aortic root fairly stable from prior.
== END | disposition home or self-care (01) ==
LOC: RADCTMAIN 15:22
PROVIDERS: ATTEND Internal Medicine Clinical Cardiac Electrophysiology
DX: I71.2 Thoracic aortic aneurysm, without rupture (principal)
CPT/HCPCS: 82565; 84520; 71275; 36415; Q9967

== ENCOUNTER → 2022-02-11 | Outpatient (CLI) | payer MEDICARE ==
[2022-02-11 14:15] LABS: Appearance,Urine Clear (Clear); Bilirubin,Urine Negative (Negative); Blood,Urine Negative (Negative); Color,Urine Yellow; Glucose,Urine (UA) Negative (Negative); Ketones,Urine Negative (Negative); Leukocyte Esterase,Urine Negative (Negative); Nitrite,Urine Negative (Negative); Protein,Urine Trace (Negative); Specific Gravity,Urine 1.023 (1.001-1.035); Urobilinogen,Urine <2.0 mg/dL (<2.0)
[2022-02-11 14:22] LABS: INR 0.9 (<1.2); Partial Thromboplastin Time 23.5 sec (22.0-30.0); Prothrombin Time 10.1 sec (9.0-12.0)
[2022-02-12 00:15] LABS: HCT 43.7 % (39.6-50.0); HGB 13.8 g/dL (13.0-17.0); MCH 33.1 pg (27.0-32.0); MCHC 31.6 g/dL (32.0-37.0); MCV 104.8 fL (80.0-97.0); Mean Platelet Volume 10.3 fL (9.5-12.2); NRBC Per 100 WBC 0 /100 WBCS (0.0-0.0); Platelet Count 277 X 10*3/uL (140-440); RBC 4.17 X 10*6/uL (4.40-5.60); RDW 12.3 % (11.5-14.5); WBC 10.67 X 10*3/uL (4.50-10.00)
[2022-02-12 02:35] LABS: African American GFR (CKD) 81.7 (60.0-200.0); Albumin 4.6 g/dL (3.8-4.9); Albumin/Globulin Ratio 1.85 (1.60-3.17); BUN/Creat Ratio 21.21 Ratio (12.00-20.00); Blood Urea Nitrogen 22.7 mg/dL (9.0-27.0); Calcium 9.8 mg/dL (8.7-10.3); Carbon Dioxide 26.6 mmol/L (20.0-27.5); Globulin 2.5 g/dL (1.6-3.3); Non-African American GFR(CKD) 70.5 (60.0-200.0); Potassium 4.7 mmol/L (3.5-5.5); Total Bilirubin 0.2 mg/dL (0.30-1.20); Total Protein 7.1 g/dL (6.2-8.2)
== END | disposition home or self-care (01) ==
LOC: LABPAT 11:07
PROVIDERS: ATTEND Orthopaedic Surgery
DX: Z01.812 Encounter for preprocedural laboratory examination (principal)
CPT/HCPCS: 36415; 80053; 81003; 85027; 85610; 85730; 87070

== ENCOUNTER 2022-03-11 05:56 | Day surgery (SDC) | payer MEDICARE ==
[2022-03-07 11:59] VITALS: BMI 35.2
[~2022-03-11 05:56] MED LIST changes: +ACETAMINOPHEN TAB 500 MG TAB PO PRN; +GABAPENTIN 300 MG CAP PO PRN; +LIDOCAINE 1% (10MG/ML) FOR IV START INTRADERMA PRN; +MELOXICAM 7.5 MG TAB PO PRN; +ONDANSETRON 4 MG/2 ML VIAL IVP ONE; -SODIUM CHLORIDE 0.9% 1,000 ML IV SCH; +TRANEXAMIC ACID IN NACL,ISO-OS 1,000 MG in SALINE 1 100ML.BAG IVPB PRN
[2022-03-11 06:30] LABS: Glucose,Whole Blood 195 mg/dL (75-99)
[2022-03-11] MEDS ORDERED: MIDAZOLAM 2 MG/2 ML VIAL IVP ONE (06:48)
[2022-03-11] MEDS ORDERED: fentaNYL (PF) 50 MCG/ML 2 ML AMP IVP ONE (06:48)
[2022-03-11] MEDS ORDERED: fentaNYL (PF) 50 MCG/ML 2 ML AMP IV PRN (07:00)
[2022-03-11] MEDS ORDERED: HYDROmorphone 0.5 MG/0.5 ML SYRINGE IVP PRN (07:03)
[2022-03-11] MEDS ORDERED: NALOXONE 0.4 MG/ML 1 ML VIAL IV PRN (07:03)
[2022-03-11] MEDS ORDERED: HYDROmorphone 0.2 MG/1 ML SYRINGE IVP PRN (07:03)
[2022-03-11] MEDS ORDERED: ONDANSETRON 4 MG/2 ML VIAL IVP PRN (07:03)
[2022-03-11] MEDS ORDERED: HYDROcodone/APAP 7.5-325MG 1 EACH TAB PO PRN ×2 (07:04)
[2022-03-11] MEDS ORDERED: ROPIVACAINE 5 MG/ML 30 ML VIAL ONE (07:09)
[2022-03-11] MEDS ORDERED: ROCURONIUM 10 MG/ML (5 ML VIAL) IV ONE (07:09)
[2022-03-11] MEDS ORDERED: SUCCINYLCHOLINE CHLORIDE 100 MG/5 ML SYR IV ONE (07:09)
[2022-03-11] MEDS ORDERED: fentaNYL (PF) 50 MCG/ML 2 ML AMP ONE (07:09)
[2022-03-11] MEDS ORDERED: PROPOFOL 10 MG/ML 20 ML VIAL IV ONE (07:09)
[2022-03-11] MEDS ORDERED: TRANEXAMIC ACID IN NACL,ISO-OS 1,000 MG/100 ML BAG ONE (07:09)
[2022-03-11] MEDS ORDERED: LIDOCAINE 2% INJ 20 MG/ML (2 ML VIAL) ONE (07:09)
[2022-03-11] MEDS ORDERED: HYDROmorphone (PF) 1 MG/ML ONE (07:09)
[2022-03-11] MEDS ORDERED: ceFAZolin 1,000 MG in SODIUM CHLORIDE 0.9% 1,000 ML IRRIGATION ONE (07:09)
[2022-03-11] MEDS ORDERED: GLYCOPYRROLATE 0.2 MG/ML 2 ML VIAL ONE (07:09)
[2022-03-11] MEDS ORDERED: SODIUM CHLORIDE 0.9% (PF) 10 ML VIAL ONE (07:09)
[2022-03-11] MEDS ORDERED: PHENYLEPHRINE-0.9% NACL SYG 1,000 MCG/10 ML SYRINGE ONE (07:09)
[2022-03-11] MEDS ORDERED: NEOSTIGMINE 1 MG/ML 10 ML VIAL ONE (07:09)
[2022-03-11] MEDS ORDERED: MIDAZOLAM 2 MG/2 ML VIAL ONE (07:09)
[2022-03-11] MEDS ORDERED: SODIUM CHLORIDE 0.9% 1,000 ML IV SCH (07:15)
--- NOTE | 2022-03-11 08:37 | P.OP ---
Date of Procedure: 03/11/22 Preoperative Diagnosis: Severe osteoarthritis right knee Postoperative Diagnosis: Severe osteoarthritis right knee Procedure(s) Performed: Right total knee arthroplasty using Hello[employer] patient specific guides Implants: Arellano [employer] Nephew Journey II CR Oxinium cruciate retaining femoral component size 7, right Arellano [employer] Nephew Journey nonporous tibial baseplate size 6, right Arellano [employer] Nephew Journey II, XLPE Deep Dished articular insert, size 13 mm, Size 5-6, right Arellano [employer] Nephew Journey Saundra II resurfacing patellar component, oval, 35 mm All components were cemented using Palacos R bone cement The articulation is Oxinium on polyethylene Visionaire patient specific guides Anesthesia: GETA Surgeon: Chandler Jenkins Hospice Art Therapist #1: Josselin Light Estimated Blood Loss (ml): 50 Pathology: other (Bone and cartilage) Condition: stable Disposition: PACU Indications for Procedure: After failure of conservative treatment we discussed the surgical and nonsurgical treatment options at length. Patient wishes to proceed with a total knee arthroplasty. Complications specific to this procedure were discussed at length, including but not limited to infection, bleeding, stiffness, and nerve injury. Covid-19 was also discussed at length with the patient, and they are aware of the current policies and procedures. The patient was given the option of delaying surgery, but they elect to proceed knowing these risks. Patient is aware of all these complications and informed consent was obtained Operative Findings: The operative findings are consistent with severe osteoarthritis of the right knee Description of Procedure: Patient was seen in the preoperative area and the consent was reviewed and the operative site was marked with a skin marker. The patient verified the procedure and the operative site. An adductor canal pain catheter and an iPACK block was placed by anesthesia in the preoperative area. The patient was then brought to the operating room and given preoperative antibiotics intravenously. A gram of transexamic acid was given intravenously. A general anesthetic was administered by the anesthesia department. A tourniquet was placed on the upper thigh and the lower extremity was prepped with chlorhexidine and draped in usual sterile fashion. A universal timeout was then performed which confirmed the patient's name, surgical site, ALLERGIES, and consent. The lower extremity was then exsanguinated and tourniquet was inflated to 250 mmHg. A standard anterior midline approach to the knee was performed. The skin and subcutaneous tissue were sharply dissected down to the patellar tendon. A medial parapatellar arthrotomy was then performed. The knee was then extended, the patellar was everted, and the knee was again flexed. The infra-patellar fat pad was removed in order to enhance exposure. The anterior horns of both menisci were excised, and a release was performed to the posterior medial aspect of the knee. On gross visual inspection, there was complete loss of articular cartilage in the medial and patellofemoral joint spaces. There was also significant cartilage damage in the lateral compartment. There were multiple periarticular osteophytes globally about the knee. The patient specific guide was placed on the distal femur, and pinned in place. Using the patient specific guide, the distal femoral cut was performed. The cutting block was then removed and the cut was checked for symmetry. The spikes of the femoral block was then placed into the predrilled holes, and malleted into place. Two 45 mm pins were then placed into the fixation holes on the cutting block. An salbador wing was then used to ensure there would be no notching with the anterior cut. The anterior condyles were cut without notching. The anterior chord cut was then performed, followed by the posterior cut, posterior chamfer cut, and the anterior chamfer cut. The collateral ligaments were protected during the entire process. The cutting block was then removed. Any remaining bone and osteophytes were removed from the femur with a Ronguer. The femoral canal was plugged with autologous bone. Attention was then directed to the tibia. The remaining ACL was removed with a Ronguer, and the tibia was then gently subluxed forward with a large bent knee retractor. Any remaining menisci were excised. The posterior lateral corner was cauterized in order to coagulate the lateral geniculate artery. The patient specific guide for the tibia was then placed and was held in place with pins. Pinholes were then placed for rotation of the tibial component as well. Proximal tibia was then cut and sized. The femoral trial was placed. A narrow saw blade was then used to remove the anterior intracondylar femoral bone. The CR notch trial was then placed. The tibial trial was placed with the appropriate-sized insert. The knee was able to fully extend and flex to 130 and was stable throughout all range of motion. The knee was then extended and the patella was everted. Patella was then measured, and then using an osteotomy guide, the patella was cut at the appropriate level. The patella was then measured and drilled and the patella trial was then placed. The knee was then taken through range of motion with the patella trial and the patella tracked normally using the no thumbs technique.. The knee was then extended patella trial was then removed and the patella was everted. Knee was then flexed and lug holes were drilled through the femoral trial and the femoral trial was then removed. The tibial was then re-exposed, and the tibial broach guide was then pinned in place after it was set for the appropriate rotation to allow for the most coverage without overhang. The tibia was then reamed and broached. The cut surfaces of bone were then irrigated with pulsatile lavage. The knee was also irrigated with Irrisept solution. The components were then opened, the cement was mixed, and the components were then cemented in place. The cement was allowed to harden with the knee in full extension. After the cemented hardened. The tourniquet was released, and hemostasis was obtained. A second gram of transexamic acid was given intravenously. The knee was again irrigated. The knee was again taken through range of motion and found to be stable throughout all range of motion of 0-130, and the patella tracked normally. The fascia was then closed with 0 Vicryl followed by #2 strata fix suture. The subcutaneous tissue was closed with 3-0 Vicryl and 3-0 strata fix. Exofin glue was used for the skin and placed with the knee in flexion. After the glue had dried, and Optafoam silver impregnated dressing was applied. The patient was then transferred to recovery room in stable condition. The marketing operations assistant OLIVIA Roberts was required due the complexity surgery and the need for a skilled surgical technology instructor. She assisted in positioning, draping, retraction, and closure of the wound.
[2022-03-11] MEDS ORDERED: LACTATED RINGERS 1,000 ML IV ONE (08:45)
[2022-03-11] MEDS ORDERED: ROPIVACAINE 0.2%-NS ON-Q PUMP 2 MG/ML EACH MISCELLANE ONE (09:22)
[2022-03-11 09:24] VITALS: RESP 16; TEMP 98
[2022-03-11] MEDS: HYDROmorphone 0.5 MG/0.5 ML SYRINGE IVP PRN ×2 (09:26→09:40)
--- NOTE | 2022-03-11 09:41 | XR ---
Limited right knee HISTORY: Status post right knee arthroplasty 2 views the right knee Patient is status post right knee arthroplasty. There is lucency in the soft tissues. Patient shows a natomic alignment. Small ossific densities noted in the intercondylar region on the frontal view are noted, difficult to exclude loose bodies. There is soft tissue swelling. IMPRESSION: Orthopedic follow-up.
--- NOTE | 2022-03-11 11:45 | P.ANPRN ---
Procedure Note - Anesthesia - Nerve Block Performed Right Adductor Canal Infusion Time Out Performed: Yes (0647) Date of Procedure: 03/11/22 Procedure Start Time: 06:48 Procedure Stop Time: 06:54 Location of Patient: PreOp Indication: Acute Post-Operative Pain, Requested by Surgeon Specifically requested for management of pain by DrJules: Chandler Jenkins Sedation Type: Sedate with meaningful contact maintained Preparation: Sterile Prep Position: Supine Catheter Depth at Skin (cm): 8 Catheter: Indwelling Needle Types: Pajunk Needle Gauge: 21 Ultrasound used to visualize needle placement: Yes Ultrasound used to observe medication spread: Yes Injectate: 0.5% Ropivacaine (see comment for volume) (15cc + 5cc nacl pf) Blood Aspirated: No Pain Paresthesia on Injection Noted: No Resistance on Injection: Normal Image Stored and Saved: Yes Events: Uneventful and Well Tolerated
--- NOTE | 2022-03-11 11:45 | P.ANPRN ---
Procedure Note - Anesthesia - Nerve Block Performed Right iPack Single Time Out Performed: Yes (0647) Date of Procedure: 03/11/22 Procedure Start Time: 06:55 Procedure Stop Time: 06:59 Location of Patient: PreOp Indication: Acute Post-Operative Pain, Requested by Surgeon Specifically requested for management of pain by DrJules: Chandler Jenkins Sedation Type: Sedate with meaningful contact maintained Preparation: Sterile Prep Position: Supine Catheter: None Needle Types: Pajunk Needle Gauge: 21 Ultrasound used to visualize needle placement: Yes Ultrasound used to observe medication spread: Yes Injectate: 0.5% Ropivacaine (see comment for volume) (15cc + 5cc nacl pf) Blood Aspirated: No Pain Paresthesia on Injection Noted: No Resistance on Injection: Normal Image Stored and Saved: Yes Events: Uneventful and Well Tolerated
[2022-03-11 12:41] VITALS: BP 125/73; PULSE 68
== END 2022-03-11 14:20 | disposition home health service (06) ==
LOC: OR 05:56
PROVIDERS: ATTEND Orthopaedic Surgery
DX: M17.11 Unilateral primary osteoarthritis, right knee (principal); I48.91 Unspecified atrial fibrillation; I11.0 Hypertensive heart disease with heart failure; I50.9 Heart failure, unspecified; E11.9 Type 2 diabetes mellitus without complications; E78.2 Mixed hyperlipidemia; B19.9 Unspecified viral hepatitis without hepatic coma; Z79.899 Other long term (current) drug therapy; Z79.01 Long term (current) use of anticoagulants; Z79.84 Long term (current) use of oral hypoglycemic drugs; Z88.5 Allergy status to narcotic agent; Z98.890 Other specified postprocedural states; Z83.3 Family history of diabetes mellitus; Z82.49 Family history of ischemic heart disease and other diseases of the circulatory system
CPT/HCPCS: 97110; 97161; 64999; 64448; 76942; 88300; 73560; 27447; C1713; C1776; J2250; J2710; J0690 ×2; J2405; J3010; J1170 ×2; J2795 ×2; J2370; J0330; J2704; J2001

== ENCOUNTER → 2022-11-04 | Outpatient (CLI) | payer MEDICARE ==
[2022-11-04 11:33] LABS: Partial Thromboplastin Time 23.5 sec (22.0-30.0); Prothrombin Time 10.3 sec (9.0-12.0)
[2022-11-04 14:45] LABS: HCT 34.6 % (39.6-50.0); HGB 11.9 g/dL (13.0-17.0); MCH 34.3 pg (27.0-32.0); MCHC 34.4 g/dL (32.0-37.0); MCV 99.7 fL (80.0-97.0); Mean Platelet Volume 9.8 fL (9.5-12.2); NRBC Per 100 WBC 0 /100 WBCS (0.0-0.0); Platelet Count 241 X 10*3/uL (140-440); RBC 3.47 X 10*6/uL (4.40-5.60); RDW 12.9 % (11.5-14.5); WBC 8.32 X 10*3/uL (4.50-10.00)
[2022-11-04 14:55] LABS: African American GFR (CKD) 64.1 (60.0-200.0); Albumin 4.3 g/dL (3.8-4.9); Albumin/Globulin Ratio 1.87 (1.60-3.17); Anion Gap 9.8 mmol/L (10.00-18.00); BUN/Creat Ratio 20.23 Ratio (12.00-20.00); Blood Urea Nitrogen 26.3 mg/dL (9.0-27.0); Calcium 9.5 mg/dL (8.7-10.3); Carbon Dioxide 27.2 mmol/L (20.0-27.5); Globulin 2.3 g/dL (1.6-3.3); Non-African American GFR(CKD) 55.3 (60.0-200.0); Potassium 4.6 mmol/L (3.5-5.5); Total Bilirubin 0.3 mg/dL (0.30-1.20); Total Protein 6.6 g/dL (6.2-8.2)
[2022-11-04 17:04] LABS: Appearance,Urine Clear (Clear); Bilirubin,Urine Negative (Negative); Blood,Urine Negative (Negative); Color,Urine Yellow (Yellow); Ketones,Urine Negative (Negative); Nitrite,Urine Negative (Negative); PH, Urine 5.5 (5.0-8.0); Specific Gravity,Urine 1.024 (1.001-1.030); Urobilinogen,Urine 0.2 (0.2,1.0)
== END | disposition home or self-care (01) ==
LOC: LABPAT 09:58
PROVIDERS: ATTEND Orthopaedic Surgery
DX: Z01.812 Encounter for preprocedural laboratory examination (principal); M17.12 Unilateral primary osteoarthritis, left knee
CPT/HCPCS: 80053; 81001; 85027; 85610; 85730; 87070

== ENCOUNTER 2022-11-11 05:34 | Day surgery (SDC) | payer MEDICARE ==
[~2022-11-11 05:34] MED LIST changes: -LACTATED RINGERS 1,000 ML IV SCH; -LIDOCAINE 1% (10MG/ML) FOR IV START INTRADERMA PRN; -ONDANSETRON 4 MG/2 ML VIAL IVP ONE
[2022-11-11] MEDS ORDERED: ONDANSETRON 4 MG/2 ML VIAL IVP ONE (05:50)
[2022-11-11] MEDS ORDERED: LACTATED RINGERS 1,000 ML IV SCH (05:50)
[2022-11-11] MEDS ORDERED: LIDOCAINE 1% (10MG/ML) FOR IV START INTRADERMA PRN (05:50)
[2022-11-11] MEDS ORDERED: DEXAMETHASONE SOD PHOSPHATE 4 MG/ML 1 ML VIAL IV ONE (05:50)
[2022-11-11 06:17] LABS: Glucose,Whole Blood 186 mg/dL (70-110)
[2022-11-11 06:18] VITALS: RESP 16
[2022-11-11] MEDS ORDERED: fentaNYL (PF) 50 MCG/1 ML VIAL IVP ONE (06:44)
[2022-11-11] MEDS ORDERED: MIDAZOLAM 2 MG/2 ML VIAL IVP ONE (06:44)
[2022-11-11] MEDS ORDERED: GLYCOPYRROLATE 0.2 MG/ML 2 ML VIAL ONE (07:01)
[2022-11-11] MEDS ORDERED: LIDOCAINE 2% INJ 20 MG/ML (2 ML VIAL) ONE (07:01)
[2022-11-11] MEDS ORDERED: TRANEXAMIC ACID IN NACL,ISO-OS 1,000 MG/100 ML BAG ONE (07:01)
[2022-11-11] MEDS ORDERED: ROPIVACAINE 5 MG/ML 30 ML VIAL ONE (07:01)
[2022-11-11] MEDS ORDERED: fentaNYL (PF) 50 MCG/ML 2 ML AMP ONE (07:01)
[2022-11-11] MEDS ORDERED: HYDROmorphone (PF) 1 MG/ML ONE (07:01)
[2022-11-11] MEDS ORDERED: NEOSTIGMINE 1 MG/ML 10 ML VIAL ONE (07:01)
[2022-11-11] MEDS ORDERED: SUCCINYLCHOLINE CHLORIDE 200 MG/10 ML VIAL IV ONE (07:01)
[2022-11-11] MEDS ORDERED: PROPOFOL 10 MG/ML 20 ML VIAL IV ONE (07:01)
[2022-11-11] MEDS ORDERED: SODIUM CHLORIDE 0.9% (PF) 10 ML VIAL ONE (07:01)
[2022-11-11] MEDS ORDERED: MIDAZOLAM 2 MG/2 ML VIAL ONE (07:01)
[2022-11-11] MEDS ORDERED: ROCURONIUM 10 MG/ML (5 ML VIAL) IV ONE (07:01)
[2022-11-11] MEDS ORDERED: ceFAZolin 1,000 MG in SODIUM CHLORIDE 0.9% 1,000 ML IRRIGATION ONE (07:46)
[2022-11-11] MEDS ORDERED: LACTATED RINGERS 1,000 ML IV ONE (07:48)
--- NOTE | 2022-11-11 08:22 | P.OP ---
Date of Procedure: 11/11/22 Preoperative Diagnosis: Severe osteoarthritis left knee Postoperative Diagnosis: Severe osteoarthritis left knee Procedure(s) Performed: Left total knee arthroplasty using [employer] patient specific guides Implants: Arellano [employer] Nephew Cruciate Retaining Journey II CR Oxinium Femoral Component size 7, left Arell[employer] Nephew Journey Nonporous Tibial Baseplate size 6, left Arellano [employer] Nephew Journey II CR, XLPE Articular Insert, 9 mm, size 5-6 Arellano [employer]hew Saundra II Resurfacing Patellar Component, Oval, 35 mm All components were cemented using Palacose R bone cement. The articulation is Oxinium on polyethylene. [employer] patient specific guides Anesthesia: GETA Surgeon: Chandler Jenkins Staying Machine Operator #1: Josselin Light Estimated Blood Loss (ml): 50 Pathology: other (Bone and cartilage) Condition: stable Disposition: PACU Indications for Procedure: This is a 72-year-old male with a history of left knee osteoarthritis. The patient's knee is end-stage, and conservative management has failed. The operation of knee replacement has been discussed at length in the office, as well as potential risks and complications. These are inclusive of, but not limited to: Infection, bleeding, scarring, discomfort, stiffness, blood vessel and nerve damage, need for further surgery, failure to relieve symptoms, persistence, recurrence, or worsening of problems, loosening, dislocation, wear, blood clot, pulmonary embolism, , gait dysfunction, stiffness, and other risks as discussed in the office. Patient elects to proceed and the consent form has been signed. Operative Findings: The operative findings are consistent with severe osteoarthritis the left knee Description of Procedure: Patient was seen in the preoperative area and the consent was reviewed and the operative site was marked with a skin marker. The patient verified the procedure and the operative site. An adductor canal pain catheter was placed by anesthesia in the preoperative area. The patient was then brought to the operating room and given preoperative antibiotics intravenously. A gram of transexamic acid was given intravenously. A general anesthetic was administered by the anesthesia department. A tourniquet was placed on the upper thigh and the lower extremity was prepped with chlorhexidine and draped in usual sterile fashion. A universal timeout was then performed which confirmed the patient's name, surgical site, ALLERGIES, and consent. The lower extremity was then exsanguinated and tourniquet was inflated to 250 mmHg. A standard anterior midline approach to the knee was performed. The skin and subcutaneous tissue were sharply dissected down to the patellar tendon. A medial parapatellar arthrotomy was then performed. The knee was then extended, the patellar was everted, and the knee was again flexed. The infra-patellar fat pad was removed in order to enhance exposure. The anterior horns of both menisci were excised, and a release was performed to the posterior medial aspect of the knee. On gross visual inspection, there was complete loss of articular cartilage in the medial and patellofemoral joint spaces. There was also significant cartilage damage in the lateral compartment. There were multiple periarticular osteophytes globally about the knee. The patient specific guide was placed on the distal femur, and pinned in place. Using the patient specific guide, the distal femoral cut was performed. The cutting block was then removed and the cut was checked for symmetry. The spikes of the femoral block was then placed into the predrilled holes, and malleted into place. Two 45 mm pins were then placed into the fixation holes on the cutting block. An salbador wing was then used to ensure there would be no notching with the anterior cut. The anterior condyles were cut without notching. The anterior chord cut was then performed, followed by the posterior cut, posterior chamfer cut, and the anterior chamfer cut. The collateral ligaments were protected during the entire process. The cutting block was then removed. Any remaining bone and osteophytes were removed from the femur with a Ronguer. The femoral canal was plugged with autologous bone. Attention was then directed to the tibia. The remaining ACL was removed with a Ronguer, and the tibia was then gently subluxed forward with a large bent knee retractor. Any remaining menisci were excised. The posterior lateral corner was cauterized in order to coagulate the lateral geniculate artery. The patient specific guide for the tibia was then placed and was held in place with pins. Pinholes were then placed for rotation of the tibial component as well. Proximal tibia was then cut and sized. The femoral trial was placed. A narrow saw blade was then used to remove the anterior intracondylar femoral bone. The CR notch trial was then placed. The tibial trial was placed with the appropriate-sized insert. The knee was able to fully extend and flex to 130 and was stable throughout all range of motion. The knee was then extended and the patella was everted. Patella was then measured, and then using an osteotomy guide, the patella was cut at the appropriate level. The patella was then measured and drilled and the patella trial was then placed. The knee was then taken through range of motion with the patella trial and the patella tracked normally using the no thumbs technique.. The knee was then extended patella trial was then removed and the patella was everted. Knee was then flexed and lug holes were drilled through the femoral trial and the femoral trial was then removed. The tibial was then re-exposed, and the tibial broach guide was then pinned in place after it was set for the appropriate rotation to allow for the most coverage without overhang. The tibia was then reamed and broached. The cut surfaces of bone were then irrigated with pulsatile lavage. The knee was also irrigated with Irrisept solution. The components were then opened, the cement was mixed, and the components were then cemented in place. The cement was allowed to harden with the knee in full extension. After the cemented hardened. The tourniquet was released, and hemostasis was obtained. A second gram of transexamic acid was given intravenously. The knee was again irrigated. The knee was again taken through range of motion and found to be stable throughout all range of motion of 0-130, and the patella tracked normally. The fascia was then closed with 0 Vicryl followed by #2 strata fix suture. The subcutaneous tissue was closed with 3-0 Vicryl and 3-0 strata fix. Exofin glue was used for the skin and placed with the knee in flexion. After the glue had dried, and Optafoam silver impregnated dressing was applied. The patient was th en transferred to recovery room in stable condition. The assistant designer OLIVIA Roberts was required due the complexity surgery and the need for a skilled certified surgical technologist. She assisted in positioning, draping, retraction, and closure of the wound.
--- NOTE | 2022-11-11 08:30 | P.ANPRN ---
Procedure Note - Anesthesia - Nerve Block Performed Left Adductor Canal Time Out Performed: Yes (:43) Date of Procedure: 11/11/22 Procedure Start Time: Procedure Stop Time: Location of Patient: PreOp Indication: Acute Post-Operative Pain, Requested by Surgeon (Dr Chandler dave) Sedation Type: Sedate with meaningful contact maintained Preparation: Sterile Prep, Sterile Dressing Position: Supine Catheter: Indwelling Needle Types: Pajunk Needle Gauge: 21 Ultrasound used to visualize needle placement: Yes Ultrasound used to observe medication spread: Yes Injectate: 0.5% Ropivacaine (see comment for volume) (15cc) Blood Aspirated: No Pain Paresthesia on Injection Noted: No Resistance on Injection: Normal Image Stored and Saved: Yes Events: Uneventful and Well Tolerated
[2022-11-11] MEDS ORDERED: ROPIVACAINE 0.2%-NS ON-Q PUMP 1,090 MG, EMPTY PAIN BALL 1 EACH MISCELLANE PRN (08:31)
--- NOTE | 2022-11-11 08:31 | P.ANPRN ---
Procedure Note - Anesthesia - Nerve Block Performed Left iPack Time Out Performed: Yes Date of Procedure: 11/11/22 Procedure Start Time: 06:50 Procedure Stop Time: 06:54 Location of Patient: PreOp Indication: Acute Post-Operative Pain, Requested by Surgeon (Dr Chandler Jenkins) Sedation Type: Sedate with meaningful contact maintained Preparation: Sterile Prep Position: Supine Catheter: None Needle Types: Pajunk Needle Gauge: 21 Ultrasound used to visualize needle placement: Yes Ultrasound used to observe medication spread: Yes Injectate: 0.5% Ropivacaine (see comment for volume) (15cc +5cc PF normal saline) Blood Aspirated: No Pain Paresthesia on Injection Noted: No Resistance on Injection: Normal Image Stored and Saved: Yes Events: Uneventful and Well Tolerated
[2022-11-11] MEDS ORDERED: HYDROmorphone 0.5 MG/0.5 ML SYRINGE IVP PRN ×3 (08:52)
[2022-11-11] MEDS ORDERED: ONDANSETRON 4 MG/2 ML VIAL IVP PRN (08:52)
[2022-11-11] MEDS ORDERED: NALOXONE 0.4 MG/ML 1 ML VIAL IV PRN (08:52)
[2022-11-11] MEDS: HYDROmorphone 0.5 MG/0.5 ML SYRINGE IVP PRN ×2 (08:52→09:06)
[2022-11-11] MEDS ORDERED: HYDROcodone/APAP 7.5-325MG 1 EACH TAB PO PRN ×2 (08:54)
[2022-11-11] MEDS ORDERED: SODIUM CHLORIDE 0.9% 1,000 ML IV SCH (09:00)
[2022-11-11 09:09] VITALS: TEMP 96.8
--- NOTE | 2022-11-11 09:27 | XR ---
EXAMINATION TYPE: XR knee limited LT DATE OF EXAM: 11/11/2022 9:20 AM INDICATION: Patient age:Male; 72 years old; Reason for study: Evaluation for Postop abnormality and alignment; [facility]. COMPARISON: Left knee radiograph 03/11/2019. TECHNIQUE: The Left knee(s) was examined in frontal and lateral projections. FINDINGS: Postsurgical changes from left knee arthroplasty with distal femoral and proximal tibial components. Hardware appears intact with appropriate alignment. No acute fracture or dislocation. The re is associated soft tissue gas and edema. IMPRESSION: Postsurgical changes from left knee arthroplasty. Hardware appears intact with appropriate alignment.
[2022-11-11 11:45] VITALS: BP 134/82; PULSE 61
== END 2022-11-11 12:08 | disposition home health service (06) ==
LOC: OR 05:34
PROVIDERS: ATTEND Orthopaedic Surgery
DX: M17.12 Unilateral primary osteoarthritis, left knee (principal); G89.18 Other acute postprocedural pain; Z96.652 Presence of left artificial knee joint
CPT/HCPCS: 27447; 97530; 97161; 64999; 64448; 76942; 88300; 73560; C1713; C1776; C1751; J2250; J0330; J2710; J0690 ×2; J2405; J3010 ×2; J1170 ×2; J2795 ×2; J2704; J2001

== ENCOUNTER → 2023-06-02 | Outpatient (CLI) | payer MEDICARE ==
--- NOTE | 2023-06-02 17:37 | US ---
EXAMINATION TYPE: US kidneys/renal and bladder DATE OF EXAM: 06/02/2023 COMPARISON: None CLINICAL INDICATION: Male, 72 years old with history of N17.9 ACUTE KIDNEY FAILURE, R94.4 ABN KIDNEY FUNCTIONS; Abnormal labs. No pain EXAM MEASUREMENTS: Right Kidney: 11.9 x 4.9 x 6.6 cm Left Kidney: 9.8 x 4.9 x 5.5 cm There is no hydronephrosis on either side. Right Kidney: Med superior cystic appearing lesion = 2.4 x 1.9 x 1.7 cm Left Kidney: Mid inferior cystic appearing lesion = 8.9 x 7.7 x 5.9 cm Bladder: Partially distended bladder shows no gross abnormality. Bilateral Jets not seen Incidental echogenic liver parenchyma. IMPRESSION: 1. No hydronephrosis. 2. A benign cyst on either side measuring up to 8.9 cm on the left and 2.4 cm on the right. 3. Incidental hepatic steatosis.
== END | disposition home or self-care (01) ==
LOC: RADUSWWP 12:53
PROVIDERS: ATTEND Family Medicine
DX: N17.9 Acute kidney failure, unspecified (principal); K76.0 Fatty (change of) liver, not elsewhere classified; R94.4 Abnormal results of kidney function studies; N28.1 Cyst of kidney, acquired
CPT/HCPCS: 76770